=== PATIENT | male | born 1960 | race Caucasian/White ===

== ENCOUNTER 2016-12-30 08:07 | Emergency (ER) | payer MEDICAID ==
[~2016-12-30] VITALS: Ht 182.9 cm; Wt 74.8 kg
[2016-12-30 08:32] VITALS: BP 135/87
--- NOTE | 2016-12-30 08:35 | Emergency Room Report ---
History of Present Illness General Chief Complaint: Skin Rash/Abscess Source: Patient Present Illness HPI Patient presents with complaints of several areas of insect bites Also discomfort to the right elbow Patient reports having 3 rounds of shampoo for scabies Feels of the areas have become more scabbed and possibly healing Denies any fevers Patient has multiple areas of previous abscess Denies any neck pain or photophobia Dressing chest pain or shortness of breath Allergies: Uncoded Allergies: PENECILLIN (Allergy, Unknown, 12/30/16) Patient History Past Medical History: see triage record Pertinent Family History: none Reviewed Nursing Documentation: PMH: Agreed, PSxH: Agreed Nursing Documentation-PM Past Medical History: No History, Except For Review of Systems All Other Systems: negative except mentioned in HPI Physical Exam Vital Signs Date Time Temp Pulse Resp B/P Pulse Ox O2 Delivery O2 Flow Rate FiO2 12/30/16 08:15 97.9 84 18 134/76 99 Room Air Sp02 EP Interpretation: reviewed, normal General Appearance: well appearing - However mildly disheveled, no apparent distress Head: normocephalic, atraumatic Eyes: bilateral eye EOMI, bilateral eye PERRL ENT: hearing grossly normal, normal pharynx, TMs + canals normal, uvula midline Neck: full range of motion, supple, no meningismus, no bony tend Respiratory: lungs clear, normal breath sounds, no rhonchi, no respiratory distress, no retraction, no accessory muscle use Cardiovascular #1: normal peripheral pulses, regular rate, rhythm, no edema, no gallop, no JVD, no murmur Gastrointestinal: normal bowel sounds, non tender, soft, no mass, no organomegaly, non-distended, no guarding, no hernia, no pulsatile mass, no rebound Genitourinary: no CVA tenderness Musculoskeletal: normal inspection Neurologic: oriented x3, responsive, animal killer III-XII nml as tested, motor strength/ tone normal, sensory intact Psychiatric: mood/affect normal Skin: other - Multiple areas of scab formation, secondary healing, there is also evidence of abrasion to the right elbow, mild increased erythema is noted, patient is able to freely move the elbow without any joint restriction, no signs of any flaring or streaking of erythema Lymphatic: normal inspection, no adenopathy Medical Decision Making Diagnostic Impression: Primary Impression: Rash and other nonspecific skin eruption Additional Impression: Cellulitis ER Course Patient appears to have multiple areas of likely insect bites Dermatitis with differential of possible scabies Area on the right elbow does also appear to have a secondary cellulitis No signs of any abscess or joint involvement at this time Patient was given an IM injection of antibiotics And requires close outpatient followup Last Vital Signs Date Time Temp Pulse Resp B/P Pulse Ox O2 Delivery O2 Flow Rate FiO2 12/30/16 08:15 97.9 84 18 134/76 99 Room Air Status: improved Disposition: HOME, SELF-CARE Condition: Improved Scripts Clindamycin Hcl (CLINDAMYCIN HCL) 300 Mg Capsule 300 MG ORAL THREE TIMES A DAY, #21 CAP Prov: ANÍBAL LOO D.O. 12/30/16 Additional Instructions: Patient is provided with the discharge instructions notified to follow up with primary doctor in the next 2-3 days otherwise return to the er with any worsening symptoms. Please note that this report is being documented using [employer] technology. This can lead to erroneous entry secondary to incorrect interpretation by the dictating instrument. ANÍBAL LOO D.O. Dec 30, 2016 08:35
[2016-12-30] MEDS ORDERED: Clindamycin 300mg/ml vial inj IM ONE (08:45)
[2016-12-30] MEDS ORDERED: CLINDAMYCIN HC300 MG ORAL (08:50)
[2016-12-30 09:10] VITALS: BP 131/79
[2016-12-30 09:12] VITALS: BP 131/79
== END 2016-12-30 09:15 | disposition home or self-care (01) ==
LOC: EMR 08:33
DX: R21 Rash and other nonspecific skin eruption (principal); L03.90 Cellulitis, unspecified; S50.311A Abrasion of right elbow, initial encounter; X58.XXXA Exposure to other specified factors, initial encounter; Y92.9 Unspecified place or not applicable; Z88.0 Allergy status to penicillin; B86 Scabies
CPT/HCPCS: 96372; 99283; S0077

== ENCOUNTER 2019-06-30 18:53 | Emergency (ER) | payer MEDICAID ==
[~2019-06-30] VITALS: Ht 180.3 cm; Wt 74.8 kg
[~2019-06-30 18:53] MED LIST: CLINDAMYCIN HC300 MG ORAL
--- NOTE | 2019-06-30 19:20 | NUR ---
ED Nurse Note: Recieved pt from [facility] with c/o " i lupis my heart medicines", pt is awake, alert and oriented x 4, pt statesd he has chest pain and only needs his meds, pt is placed in gown and on cardiac monitoring, pt is refusing labs stating he does not like needles, sat and attempted to explain importance of needing labs, pt wont allow, informed, ekg done, pt with increased anxiety behavior, b/p is high, will continue to closely monitor.
--- NOTE | 2019-06-30 19:35 | NUR ---
ED Nurse Note:ELOPEMENT: sat and talked with pt, pt eloped from facility stating he does not want labs he only wants prescription for heart, pt can not recall what meds,staff attempted to ask pt only for labs, pt continued to refuse, became angry stating its against the law, pt also explained that his PMD will not refill meds because pt wont come in for exam, pt angrily left department ambulating, NAD noted.
[2019-06-30 19:38] VITALS: BP 155/102
--- NOTE | 2019-06-30 19:41 | Emergency Room Report ---
History of Present Illness General Chief Complaint: Chest Pain Source: Patient, Medical Record Present Illness HPI Disclaimer: Please note that this report is being documented using [employer] technology. This can lead to erroneous entry secondary to incorrect interpretation by the dictating instrument. HPI: 58-year-old male with reported history of CHF and hypertension presents complaining of chest pain and shortness of breath. Patient states that he has not been able to receive his medication for hypertension or for CHF and a proximal he 1 month over dispute with his prior doctor. He is requesting refills of his medications but does not want further evaluation at this time. He states that he told EMS he was experiencing chest pains that he can come to the emergency department for medication refill. He is currently denying chest pain but does note exertional dyspnea over the past few weeks and difficulty walking more than 75 steps without feeling short of breath. He denies cough, fevers, vomiting or diarrhea. PMH: Hypertension, CHF PSH: Mandible reconstruction, craniotomy Allergies: Penicillin Social Hx: Occasional alcohol use. Refused to answer regarding drugs Allergies: Coded Allergies: PENICILLINS (Verified Allergy, Unknown, 06/30/19) Nursing Documentation-PMH Past Medical History: No History, Except For Hx Hypertension: Yes Review of Systems All Other Systems: negative except mentioned in HPI Physical Exam Vital Signs Date Time Temp Pulse Resp B/P (MAP) Pulse Ox O2 Delivery O2 Flow Rate FiO2 06/30/19 18:57 97.7 96 20 155/102 (119) 100 Room Air General: Awake and alert, no acute distress HEENT: NC/AT. EOMI. Cardiovascular: RRR. S1 and S2 normal. No murmur appreciated Resp: Normal work of breathing. No cough, no wheezing. There are trace crackles at the bases bilaterally. Abdomen: Abdomen is soft, nondistended. Nontender Skin: Intact. No abrasions, laceration or rash over the exposed skin MSK: Normal tone and bulk. Moving all extremities. No obvious deformity. Neuro: Awake and alert. Mentating appropriately. Medical Decision Making Diagnostic Impression: Primary Impression: Chest pain Additional Impression: SOBOE (shortness of breath on exertion) ER Course 58-year-old male with history of hypertension and CHF presents requesting refills of his medications. The patient did allow an EKG which shows sinus rhythm with left axis deviation deep S waves in V3 and V4. The patient refused chest x-ray and lab work. He is requesting medications as his PMD would no longer prescribe them to him over an altercation regarding his Social Security status. I explained to him that while he does have a diagnosis of CHF there may be other processes occurring such as pneumonia, bronchitis, unstable angina, ACS, pulmonary embolism or other medical conditions. I explained that some of these can be potentially life-threatening and that he would should be medically evaluated prior to my prescribing him any medication in order to avoid any complications. The patient became angry and stated that if I did not refill his prescriptions he would no longer stay in the emergency department. I again explained to them several times that the cause of his shortness of breath and intermittent chest pain is not necessarily due to his diagnosed CHF but could be multifactorial at which point he left the room and walked out of the emergency department and stated that he would go to another hospital. Last Vital Signs Date Time Temp Pulse Resp B/P (MAP) Pulse Ox O2 Delivery O2 Flow Rate FiO2 06/30/19 18:57 97.7 96 20 155/102 (119) 100 Room Air Disposition: Glenroy Shrestha MD Jun 30, 2019 19:41
[2019-07-01] MEDS ORDERED: NKM (00:46)
== END 2019-06-30 19:35 | disposition left against medical advice (07) ==
LOC: EMR 19:35
DX: R07.9 Chest pain, unspecified (principal); R06.02 Shortness of breath; I11.0 Hypertensive heart disease with heart failure; I50.9 Heart failure, unspecified; Z88.0 Allergy status to penicillin
CPT/HCPCS: 93005; 99282

== ENCOUNTER 2019-07-01 00:41 | Inpatient (IN) | payer MEDICAID ==
[2019-07-01] VITALS (7 sets, daily range): BP systolic 124–157; BP diastolic 93–106
[~2019-07-01] VITALS: Ht 180.3 cm; Wt 81.6 kg
[2019-07-01] MEDS ORDERED: NKM (00:46)
--- NOTE | 2019-07-01 01:00 | NUR ---
ED Nurse Note: Recieved pt BIBA from [facility] with c/o SOB, pt has noted labored breathing with accessory muscle use, pt was seen here this evening at about 7pm, pt eloped because he did not want labs and to be stuck, pt returned due to s/s worsening, pt has hx of chf and takes lasix, pt immediately gowned and assisted to cardiac monitoring, iv line placed and labs drawn, will resume care as ordered and continue to closely monitor, pt also with c/o chest pain at 10/10 with tightness, MD is aware.
[2019-07-01] MEDS ORDERED: Albuterol ud Inhalation HHN ONE (01:15)
[2019-07-01] MEDS ORDERED: Solu-MEDROL 125mg Inj IVP ONE (01:15)
[2019-07-01 01:30] LABS: BASOPHILS % (AUTO) 0.5 % (0.0-2.0); EOSINOPHILS % (AUTO) 1.6 % (0.0-3.0); HEMATOCRIT 38.8 % (42.0-52.0); HEMOGLOBIN 12.7 G/DL (14.2-18.0); MEAN CORPUSCULAR VOLUME 89 FL (80-99); MONOCYTES % (AUTO) 6.3 % (1.0-10.0); NEUTROPHILS % (AUTO) 72.5 % (45.0-75.0); PLATELET COUNT 350 K/UL (150-450); RED BLOOD COUNT 4.37 M/UL (4.70-6.10); RED CELL DISTRIBUTION WIDTH 11.4 % (11.6-14.8); WHITE BLOOD COUNT 8.5 K/UL (4.8-10.8)
[2019-07-01 01:41] LABS: ANION GAP 5 mmol/L (5-15); BLOOD UREA NITROGEN 29 mg/dL (7-18); CALCIUM 8.8 MG/DL (8.5-10.1); CARBON DIOXIDE 26 MMOL/L (21-32); CHLORIDE 105 MMOL/L (98-107); CREATININE 1.3 MG/DL (0.55-1.30); POTASSIUM 3.9 MMOL/L (3.5-5.1); SODIUM 136 MMOL/L (136-145)
--- NOTE | 2019-07-01 01:52 | Emergency Room Report ---
History of Present Illness General Chief Complaint: Abdominal Pain Source: Patient Present Illness HPI Patient presents with complaints of shortness of breath midsternal chest pain Patient was here previously and left AGAINST MEDICAL ADVICE And prior to being seen Patient reports that he was at another facility and was taking too long to be seen presents back to our facility Denies any vomiting or diarrhea patient reports that he has been off his medications which include lasix For over the past 1 month Breathing is worse with ambulation denies any fevers or chills Allergies: Coded Allergies: PENICILLINS (Verified Allergy, Unknown, 06/30/19) Patient History Past Medical History: see triage record Pertinent Family History: none Reviewed Nursing Documentation: PMH: Agreed; PSxH: Agreed Nursing Documentation-PMH Past Medical History: No History, Except For Hx Hypertension: Yes Review of Systems All Other Systems: negative except mentioned in HPI Physical Exam Vital Signs Date Time Temp Pulse Resp B/P (MAP) Pulse Ox O2 Delivery O2 Flow Rate FiO2 07/01/19 00:42 97.9 100 18 170/110 (130) 99 07/01/19 01:25 Room Air 21 Sp02 EP Interpretation: reviewed, normal General Appearance: mild distress - Appears short of breath Head: normocephalic, atraumatic Eyes: bilateral eye PERRL, bilateral eye EOMI ENT: hearing grossly normal, normal pharynx, TMs + canals normal, uvula midline Neck: full range of motion, supple, no meningismus, no bony tend Respiratory: no retraction, no accessory muscle use, crackles - Laterally, tachypneic Cardiovascular #1: normal peripheral pulses, regular rate, rhythm, no edema, no gallop, no JVD, no murmur Gastrointestinal: normal bowel sounds, non tender, soft, no mass, no organomegaly, non-distended, no guarding, no hernia, no pulsatile mass, no rebound Genitourinary: no CVA tenderness Musculoskeletal: normal inspection Neurologic: oriented x3, responsive, venetian blind worker III-XII nml as tested, motor strength/ tone normal, sensory intact Psychiatric: mood/affect normal Skin: no rash Lymphatic: normal inspection, no adenopathy Procedures Critical Care Time Critical Care Time 40 minutes for multiple re-evaluations critical presentation with respiratory distress, not including any procedural time Medical Decision Making Diagnostic Impression: Primary Impression: Dyspnea ER Course Patient is a fairly complex patient with multiple differential to consideration including but not limited to cardiac cardiopulmonary and vascular emergencies His x-rays show some congestion BNP is also elevated patient provided with diuretics At this time also showing amphetamine positive Patient's initial presentation also showed mixed picture of possible COPD and patient admitted for further care Labs Test 07/01/19 01:05 07/01/19 02:00 White Blood Count 8.5 K/UL (4.8-10.8) Red Blood Count 4.37 M/UL (4.70-6.10) Hemoglobin 12.7 G/DL (14.2-18.0) Hematocrit 38.8 % (42.0-52.0) Mean Corpuscular Volume 89 FL (80-99) Mean Corpuscular Hemoglobin 29.2 PG (27.0-31.0) Mean Corpuscular Hemoglobin Concent 32.8 G/DL (32.0-36.0) Red Cell Distribution Width 11.4 % (11.6-14.8) Platelet Count 350 K/UL (150-450) Mean Platelet Volume 4.9 FL (6.5-10.1) Neutrophils (%) (Auto) 72.5 % (45.0-75.0) Lymphocytes (%) (Auto) 19.0 % (20.0-45.0) Monocytes (%) (Auto) 6.3 % (1.0-10.0) Eosinophils (%) (Auto) 1.6 % (0.0-3.0) Basophils (%) (Auto) 0.5 % (0.0-2.0) Prothrombin Time 11.0 SEC (9.30-11.50) Prothromb Time International Ratio 1.0 (0.9-1.1) Activated Partial Thromboplast Time 27 SEC (23-33) Sodium Level 136 MMOL/L (136-145) Potassium Level 3.9 MMOL/L (3.5-5.1) Chloride Level 105 MMOL/L (98-107) Carbon Dioxide Level 26 MMOL/L (21-32) Anion Gap 5 mmol/L (5-15) Blood Urea Nitrogen 29 mg/dL (7-18) Creatinine 1.3 MG/DL (0.55-1.30) Estimat Glomerular Filtration Rate 56.7 mL/min (>60) Glucose Level 126 MG/DL (74-106) Calcium Level 8.8 MG/DL (8.5-10.1) Total Bilirubin 0.5 MG/DL (0.2-1.0) Aspartate Amino Transf (AST/SGOT) 45 U/L (15-37) Alanine Aminotransferase (ALT/SGPT) 61 U/L (12-78) Alkaline Phosphatase 105 U/L (46-116) Total Creatine Kinase 185 U/L (26-308) Creatine Kinase MB 5.5 NG/ML (0.0-3.6) Creatine Kinase MB Relative Index 2.9 Troponin I 0.000 ng/mL (0.000-0.056) Pro-B-Type Natriuretic Peptide 6855 pg/mL (0-125) Total Protein 6.4 G/DL (6.4-8.2) Albumin 3.1 G/DL (3.4-5.0) Globulin 3.3 g/dL Albumin/Globulin Ratio 0.9 (1.0-2.7) Urine Opiates Screen Negative (NEGATIVE) Urine Barbiturates Screen Negative (NEGATIVE) Phencyclidine (PCP) Screen Negative (NEGATIVE) Urine Amphetamines Screen Positive (NEGATIVE) Urine Benzodiazepines Screen Negative (NEGATIVE) Urine Cocaine Screen Negative (NEGATIVE) Urine Marijuana (THC) Screen Positive (NEGATIVE) EKG Diagnostic Results Rate: normal Rhythm: NSR ST Segments: other - Nonspecific ST T wave changes Rhythm Strip Diag. Results EP Interpretation: yes Rate: 80 Rhythm: NSR, no PVC's, no ectopy Chest X-Ray Diagnostic Results Chest X-Ray Diagnostic Results : Chest X-Ray Ordered: Yes # of Views/Limited/Complete: 1 View Indication: Chest Pain EP Interpretation: Yes Interpretation: no consolidation, no effusion, other - Congestion bilateral markings Impression: Other - CHF Electronically Signed by: Anh Betancourt DO Last Vital Signs Date Time Temp Pulse Resp B/P (MAP) Pulse Ox O2 Delivery O2 Flow Rate FiO2 07/01/19 01:37 105 26 100 Room Air 21 07/01/19 00:42 97.9 170/110 (130) Status: improved Disposition: ADMITTED INPATIENT Condition: Serious Referrals: NOT CHOSEN IPA/,REFERRING (PCP) Anh Betancourt DO Jul 01, 2019 01:52
[2019-07-01 01:54] LABS: ALANINE AMINOTRANSFERASE 61 U/L (12-78); ALBUMIN 3.1 G/DL (3.4-5.0); ALBUMIN/GLOBULIN RATIO 0.9 (1.0-2.7); ALKALINE PHOSPHATASE 105 U/L (46-116); ASPARTATE AMINO TRANSFERASE 45 U/L (15-37); BILIRUBIN,TOTAL 0.5 MG/DL (0.2-1.0); CKMB 5.5 NG/ML (0.0-3.6); CREATINE KINASE 185 U/L (26-308)
--- NOTE | 2019-07-01 02:00 | NUR ---
ED Nurse Note: urine collected; sent down to lab.
--- NOTE | 2019-07-01 03:00 | NUR ---
ED Nurse Note: Pt in bed and becoming more and more restless and agitated, does follow commands but has to stand and ambulate in room and can not be still, md is aware, pt asking for pain meds, given tylenol, remains on monitoring and requires very frequent monitoring due to constant moving and tangling in cords, pt b/p also remains slightly elevated, lasix given effective pt urinating very large amounts often, will continue to closely montior while waiting for room for admission.
[2019-07-01] MEDS ORDERED: Nitroglycerin Subl 0.4mg tab SL PRN (04:00)
[2019-07-01] MEDS ORDERED: Albuterol/Ipratropium 3ml neb HHN PRN (04:00)
[2019-07-01] MEDS ORDERED: LORazepam Inj 2mg/ml 1ml IV ONE (04:15)
--- NOTE | 2019-07-01 04:15 | NUR ---
ED Nurse Note: Pt to be admitted, no floor beds available, pt will stay in er for the night, belongings list completed, pt continues to c/o chest pain, md aware, pt also remains and getting more agitated and restless, pt using urinal frequently and medicated with lasix again, will continue to closely monitor and resume care as ordered and folow admission protocol.
--- NOTE | 2019-07-01 04:20 | NUR ---
ED Nurse Note: Pt placed on hospital bed for admission and comfort, all admit orders completed also, will continue to monitor and admit in am when bed is available, pt also medicated with ativan for anxiety, remains on cardiac monitoring, in NSR, iv lasix given very effective, pt with about 3l outpus so far, will continue to closely monitor.
[2019-07-01] MEDS: Carvedilol 6.25mg Tab ORAL SCH ×2 (04:36→08:46)
--- NOTE | 2019-07-01 05:00 | NUR ---
ED Nurse Note: RECEIVED PATIENT FROM JEROME EDWARDS. PATIENT SLEEPING COMFORTABLY IN HOSPITAL BED WITH NAD. RESPIRATION EVEN AND UNLABORED. IV INTACT AND PATENT. VSS.
--- NOTE | 2019-07-01 05:00 | NUR ---
ED Nurse Note: Pt remains on hospital bed and room changed to bed 4, report given to JEROME Bowen to resume care, pt is in bed sleeping, no sob or labored breathing and arouses easily, nad or changes noted, iv site intact and patent, pt b/p has decreased to nromal limits and continues to have urine output after lasix. Yousuf to resume care.
--- NOTE | 2019-07-01 05:53 | NUR ---
ED Nurse Note: ASSISTED PATIENT WITH URINAL. PROVIDED PATIENT WITH EXTRA BLANKET. BED AT LOWEST POSITION. BED ALARM ON; SIDE RAILS RAISED X2. CALL LIGHT WITHIN REACH. PT AWARE OF PENDING ADMISSION.
--- NOTE | 2019-07-01 06:45 | NUR ---
TRANSFER TO FLOOR: Patient transferred to SDU as ordered, per NAJERA MD. Report given to JEROME MACDONALD. Belongings and medications given to SECURITY. PT RESTING COMFORTABLY WITH NO SIGNS OF DISTRESS.
--- NOTE | 2019-07-01 07:58 | NUR ---
NURSE NOTES: received pt from Yousuf CANO. patient is a new admit under dr caldwell. pt is on the bed asleep, ativan mg given from ER. no respiratory distress noted. belongings list checked by [facility] nurse. pt call light within reach. will follow plan of care.
[2019-07-01] MEDS ORDERED: Aspirin Baby 81mg ORAL SCH (09:00)
--- NOTE | 2019-07-01 09:14 | History and Physical Report ---
DATE OF ADMISSION: 07/01/2019 REASON FOR ADMISSION: 1. Polysubstance abuse. 2. Shortness of breath. HISTORY OF PRESENT ILLNESS: The patient is a 58-year-old gentleman, who had left the emergency room against medical advice after developing some shortness of breath and chest pain. He went to another facility and then returned because he felt the other facility was still taking too long. He was admitted overnight for further evaluation and care of shortness of breath. No nausea, vomiting, or diarrhea. Denies any current chest pain. First troponin was 0. PAST MEDICAL HISTORY: 1. Polysubstance abuse. 2. Hypertension. FAMILY HISTORY: Positive for hypertension. ALLERGIES: Penicillin. PAST SURGICAL HISTORY: Noncontributory. REVIEW OF SYSTEMS: NEUROLOGIC: The patient denies headache, change in vision, syncope, or presyncopal episodes. CARDIOVASCULAR: No current chest pain, palpitations, or angina. PULMONARY: Mild shortness of breath. Nonproductive cough. GASTROINTESTINAL/GENITOURINARY: No change in bowel habits. No nausea, vomiting, or diarrhea. ENDOCRINOLOGY: No night sweats, fevers, or chills. MUSCULOSKELETAL: The patient is feeling weak, tired, and fatigued. PHYSICAL EXAMINATION: VITAL SIGNS: Blood pressure 149/99, respiratory rate 18, pulse 103, temperature 98.5, and 98% oxygen saturation on 2 L nasal cannula. GENERAL: The patient awake, somnolent, but arousable. HEENT: Extraocular muscles intact. No lymphadenopathy noted. Oropharyngeal mucosa is clear and dry. CARDIOVASCULAR: S1, S2. No rubs or gallops. PULMONARY: Mild upper rhonchi. However, positive rales. ABDOMEN: Nondistended and nontender. EXTREMITIES: No edema noted. ASSESSMENT AND PLAN: 1. Shortness of breath could be secondary to flash pulmonary edema from amphetamine use. We will continue Lasix therapy. Creatinine 1.3 and stable. We will transfer the patient to telemetry. 2. Hypertension. We will continue Coreg. 3. Polysubstance abuse. The patient was positive for amphetamines and marijuana. 4. DVT prophylaxis with SCDs. Gamaliel Otto MD DR: MARJAN/MEENAKSHI Asencio: 07/01/2019 08:13 JOB#: [id number] CC:
--- NOTE | 2019-07-01 09:29 | NUR ---
*-* NO INSURANCE INFORMATION IN THE BAR UNABLE TO SEND CLINICALS OR REVIEWS *-*
--- NOTE | 2019-07-01 09:40 | NUR ---
NURSE NOTES: DR. hester made aware pt wants to sign AMA. Dr. hester acknowledge the report and he said "okay"
--- NOTE | 2019-07-01 09:49 | NUR ---
NURSE NOTES: patient insisted on signing AMA. risk of signing it were explained but still th epatient wants to signs in. dr caldwell made aware and acknowledged the report, stated "Ok". in process inspector removed, IV line removed as well. belongings list were checked, all accounted for including the guitar and celfone. patient is not in acute distress and patient is AOX4.
--- NOTE | 2019-07-01 10:20 | NUR ---
NURSE NOTES: PATIENT FACILITY AT [address] NAJERA AWARE.
--- NOTE | 2019-07-01 10:21 | NUR ---
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 IS: Lasix 40mg IV Proventil 5mg HHN Solu-medrol 125mg IVP Admitted to SDU [facility] status DCP: Pending Hospital Stay
--- NOTE | 2019-07-01 12:28 | Diagnostic Imaging Report ---
Indication: Reason For Exam: CP Technique: Single AP view of the chest. Comparison: None. Findings: The heart is enlarged when accounting for projection and technique. There is interstitial edema. There are patchy perihilar airspace opacities. No pneumothorax. No pleural fluid. No acute osseous abnormality. Possible old right mid rib fractures. IMPRESSION: Interstitial edema; patchy perihilar airspace opacities may represent combination of edema and atelectasis, but superimposed pneumonia should be excluded clinically.
--- NOTE | 2019-07-02 08:56 | Discharge Summary ---
Discharge Summary Discharge Summary _ DATE OF ADMISSION: 07/01/2019 DATE OF DISCHARGE: 07/01/2019 Patient left AGAINST MEDICAL ADVICE REASON FOR ADMISSION: 58 years old male with past medical history of hypertension, polysubstance abuse , initially presented to emergency department with shortness of breath and chest pain . He left AGAINST MEDICAL ADVICE and went to another facility , but subsequently returned back. No further chest pain. Troponin negative. EKG revealed sinus rhythm with nonspecific ST-T wave changes. Pro BNP 6855. Chest x-ray revealed interstitial edema with patchy perihilar perihilar airspace opacity , possibly representing combination of edema and atelectasis , but superimposed pneumonia should be excluded clinically. Laboratory work-up revealed no leukocytosis , stable hemoglobin and hematocrit. Stable electrolytes . BUN 29, creatinine 1.3. Urine toxicology screen was positive for amphetamine and marijuana. Patient subsequently admitted for further evaluation of shortness of breath . HOSPITAL COURSE: Patient admitted to telemetry floor; second troponin was negative. Supplemental oxygen titrated as needed to keep pulse oximetry above 92%. Bronchodilator therapy via handheld nebulizer provided as needed. Patient started on diuresis with IV Lasix with close monitoring of volumes and cardiorenal parameters. Antiplatelet therapy with aspirin and beta-jenny initiated. Patient had shortness of breath , probably secondary to flash pulmonary edema from amphetamine use. Blood pressure was managed with the beta-jenny. DVT prophylaxis with SCD and GI prophylaxis provided. Patient was counseled on abstinence from illicit street drugs. Patient decided to leave AGAINST MEDICAL ADVICE . The risks and consequences of signing AGAINST MEDICAL ADVICE were discussed with patient in detail. Patient verbalized understanding, nevertheless signed AMA form and left. FINAL DIAGNOSES: Shortness of breath likely secondary to flash pulmonary edema due to amphetamine use Hypertension Polysubstance abuse I have been assigned to dictate discharge summary for this account. I was not involved in the patient's management. Maggi Farmer NP Jul 02, 2019 08:56
--- NOTE | 2019-07-02 11:17 | NUR ---
*-* INSURANCE *-* ALL CLINICALS AND REVIEWS HAVE BEEN FAXED TO: [facility] REF# [id number] F: [phone]
--- NOTE | 2019-07-03 14:16 | NUR ---
*-* INSURANCE *-* DISCHARGE SUMMARUY HAVE BEEN FAXED TO: [facility] REF# [id number] F: [phone]
== END 2019-07-01 10:20 | disposition left against medical advice (07) | DRG 770 ==
LOC: EDBD 00:41 → EDUNIT# 00:41 → EMR 00:58 → 2W 01:40 → EDBEDREQ 05:07
DX: F15.10 Other stimulant abuse, uncomplicated (principal); J81.0 Acute pulmonary edema; I10 Essential (primary) hypertension; R06.02 Shortness of breath
CPT/HCPCS: 36415; 71045; 80053; 80307; 82550; 82553; 83880; 84484; 85025; 85610; 85730; 93005; 94640; 94664; 96374; 96375; 96376; 99291

== ENCOUNTER 2019-07-04 23:21 | Emergency (ER) | payer MEDICAID ==
[~2019-07-04] VITALS: Ht 180.3 cm; Wt 72.6 kg
[~2019-07-04 23:21] MED LIST changes: +NKM
--- NOTE | 2019-07-04 23:34 | NUR ---
ED Nurse Note: Pt ambulated to ED from off the streets, pt reports sob and dyspnea upon exertion x3days. Pt is A&Ox4, VSS. Pt has a hx of chf
[2019-07-04 23:38] VITALS: BP 147/110
--- NOTE | 2019-07-04 23:51 | Emergency Room Report ---
History of Present Illness General Chief Complaint: Dyspnea/Respdistress Source: Patient, Medical Record Present Illness HPI This is a 58-year-old male with a history of hypertension and CHF. He said that he has not had his medicine for couple days. He was here couple days ago and was admitted for CHF. Patient complained of shortness of breath. Worse with exertion. Worse with lying flat. He said he has insurance but does not have his card so he can fill his prescription. Denies any fever chills but denies any nausea or vomiting. Has a history of drug abuse. Allergies: Coded Allergies: PENICILLINS (Verified Allergy, Unknown, 06/30/19) Patient History Past Medical History: see triage record, old chart reviewed, HTN, CHF Past Surgical History: other Pertinent Family History: none Social History: Denies: smoking Immunizations: other Reviewed Nursing Documentation: PMH: Agreed; PSxH: Agreed Nursing Documentation-PMH Hx Cardiac Problems: Yes - CHF Hx Hypertension: Yes Review of Systems Eye: Denies: eye pain, blurred vision ENT: Denies: ear pain, nose congestion, throat swelling Respiratory: Reports: shortness of breath; Denies: cough Cardiovascular: Denies: chest pain, palpitations Gastrointestinal: Denies: abdominal pain, diarrhea, nausea, vomiting Musculoskeletal: Denies: back pain, joint pain Skin: Denies: rash Neurological: Denies: headache, numbness Endocrine: Denies: increased thirst, increased urine Hematologic/Lymphatic: Denies: easy bruising All Other Systems: negative except mentioned in HPI Physical Exam Vital Signs Date Time Temp Pulse Resp B/P (MAP) Pulse Ox O2 Delivery O2 Flow Rate FiO2 07/04/19 23:22 97.9 90 16 147/110 (122) 98 Room Air Vitals with high blood pressure Sp02 EP Interpretation: reviewed, normal General Appearance: well appearing, no apparent distress, alert Head: normocephalic, atraumatic Eyes: bilateral eye PERRL, bilateral eye EOMI ENT: hearing grossly normal, normal pharynx Neck: full range of motion, supple, no meningismus Respiratory: chest non-tender, normal breath sounds, rales - Slight rales at bases Cardiovascular #1: regular rate, rhythm, no murmur Gastrointestinal: normal bowel sounds, non tender, no mass, no organomegaly, no bruit, non-distended Musculoskeletal: back normal, gait/station normal, normal range of motion Psychiatric: mood/affect normal Medical Decision Making Diagnostic Impression: Primary Impression: Acute exacerbation of CHF (congestive heart failure) Qualified Codes: I50.9 - Heart failure, unspecified Additional Impression: Drug abuse ER Course Patient presents with CHF exacerbation secondary to noncompliance with his Lasix. Troponin negative. He has no chest pain. He diuresed almost 2 L. [place] better. Will discharge home. EKG Diagnostic Results Rate: normal Rhythm: NSR ST Segments: other - LBBB; TWI Chest X-Ray Diagnostic Results Chest X-Ray Diagnostic Results : Chest X-Ray Ordered: Yes # of Views/Limited/Complete: 1 View Indication: Shortness of Breath EP Interpretation: Yes Interpretation: no consolidation, no effusion, no pneumothorax, other - cardiomegaly with mild vascular congestion Impression: Other - chf Electronically Signed by: Chase Bustamante MD Last Vital Signs Date Time Temp Pulse Resp B/P (MAP) Pulse Ox O2 Delivery O2 Flow Rate FiO2 07/04/19 23:38 90 16 Room Air 07/04/19 23:38 97.9 147/110 98 Status: improved Disposition: HOME, SELF-CARE Condition: Stable Scripts Furosemide* (LASIX*) 40 Mg Tablet 40 MG ORAL DAILY, #90 TAB Prov: Chase Bustamante MD 07/05/19 Referrals: [facility],REFERRING (PCP) Additional Instructions: Stop using drugs. Follow-up with your doctor in 7 days. Return if symptoms worsen. Chase Bustamante MD Jul 04, 2019 23:51
--- NOTE | 2019-07-05 01:02 | Diagnostic Imaging Report ---
EXAM: XR Chest, 1 View CLINICAL HISTORY: SOB TECHNIQUE: Frontal view of the chest. COMPARISON: none FINDINGS: Lungs: Mild interstitial pulmonary perivascular congestion.. Pleural space: Unremarkable. No pneumothorax. Heart: Moderate cardiomegaly. Mediastinum: Unremarkable. Bones/joints: Unremarkable. IMPRESSION: Cardiomegaly with findings of mild or early interstitial pattern edema.
[2019-07-05] MEDS ORDERED: FUROSEMIDE40 MG ORAL (01:27)
[2019-07-05 01:40] VITALS: BP 147/110
--- NOTE | 2019-07-05 01:40 | NUR ---
ER DISCHARGE NOTE: Patient is cleared to be discharged per ERMD, pt is aox4, on room air, with stable vital signs. pt was given dc and prescription instructions, pt was able to verbalize understanding, pt id band and iv site removed without complications. pt is able to ambulate with steady gait. pt took all belongings.
--- NOTE | 2019-07-08 11:16 | Cardiology Report ---
APPROVED REPORT EKG Measurement Heart [id number] Normal sinus rhythm Possible Left atrial enlargement Left bundle branch block Abnormal ECG lateral t inversion likley related to IVCD , ischemia cannot be excluded
== END 2019-07-05 01:40 | disposition home or self-care (01) ==
LOC: EMR 23:41
DX: I50.9 Heart failure, unspecified (principal); I11.0 Hypertensive heart disease with heart failure; Z88.0 Allergy status to penicillin; F19.10 Other psychoactive substance abuse, uncomplicated
CPT/HCPCS: 71045; 84484; 93005; 96374; 99284; J1940

== ENCOUNTER 2019-07-12 12:49 | Emergency (ER) | payer MEDICAID ==
[~2019-07-12] VITALS: Ht 180.3 cm; Wt 70.3 kg
[~2019-07-12 12:49] MED LIST changes: +FUROSEMIDE40 MG ORAL
[2019-07-12 13:00] VITALS: BP 147/101
--- NOTE | 2019-07-12 13:02 | NUR ---
ED Nurse Note: pt walked in to ED due to epigastric pain for over 2 months. per pt, he has it for over 2 yrs but recently run out of meds. pt also c/o sob when he walked long distance due to his heart conditions. has chf and run out of lasix. no n/v/d. ambulatory with steady gait. skin warm to touch. no open wound noted. respirations even and non-labored noted. 94% in RA. able to speak full sentence without difficulty. pt requested tamiko, will provide after seen by will wait for the further order.
--- NOTE | 2019-07-12 13:28 | Emergency Room Report ---
History of Present Illness General Chief Complaint: General Complaint Source: Medical Record (Leatha Patel) Present Illness HPI 58 YO male presents to the ED c/o running out of his medication 3 days ago. Pt. reports he takes lasix daily for CHF and HTN management. He also reports persistent 3/10 in severity epigastric pain. Denies abdominal tenderness. Denies N/V/F/C. Denies blood in the stool or black tarry stools. Pt. reports he is homeless and having issues with his [employer]( insurance) and is unable to fill rx's that have previously been written for him. Pt. reports cough, denies SOB, LE edema, or orthopnea. Pt. denies CP, palpitations, or dizziness. Denies sudden onset of a CERVANTES. Pt. was seen here 3 days ago and had full CHF work up and dc'd with rx for lasix. (Leatha Patel) Allergies: Coded Allergies: PENICILLINS (Verified Allergy, Unknown, 06/30/19) Patient History Past Medical History: see triage record, HTN, CHF Past Surgical History: none Pertinent Family History: none Social History: Reports: alcohol use, drug use Immunizations: UTD Reviewed Nursing Documentation: PMH: Agreed; PSxH: Agreed (Leatha Patel) Nursing Documentation-PMH Past Medical History: No History, Except For Hx Cardiac Problems: Yes - CHF Hx Hypertension: Yes (Leatha Patel) Review of Systems All Other Systems: negative except mentioned in HPI (Leatha Patel) Physical Exam Vital Signs Date Time Temp Pulse Resp B/P (MAP) Pulse Ox O2 Delivery O2 Flow Rate FiO2 07/12/19 12:53 98.1 100 18 147/101 (116) 95 Room Air Sp02 EP Interpretation: reviewed, normal General Appearance: no apparent distress, alert, GCS 15, non-toxic, thin Head: normocephalic, atraumatic Eyes: bilateral eye normal inspection, bilateral eye PERRL ENT: hearing grossly normal, normal voice Neck: full range of motion Respiratory: chest non-tender, lungs clear, normal breath sounds, no rhonchi, no respiratory distress, no accessory muscle use, no wheezing, speaking full sentences Cardiovascular #1: regular rate, rhythm, no edema, no JVD, normal capillary refill Gastrointestinal: normal bowel sounds, soft, no peritonitis, non-distended, no guarding, no pulsatile mass, tenderness - mild epigastric tenderness, negative buck's, no lower quadrant tenderness. Genitourinary: normal inspection Musculoskeletal: back normal, gait/station normal, normal range of motion, non- tender Neurologic: alert, oriented x3, responsive, motor strength/tone normal, sensory intact, speech normal, grossly normal Psychiatric: judgement/insight normal Lymphatic: no adenopathy (Leatah Patel) Medical Decision Making PA Attestation Dr. Betancourt is my supervising Physician whom patient management has been discussed with. Homeless Attestation I, The treating provider, Leatha BANKS, have assessed this patient and agree that this patient is medically stable for discharge to an outpatient disposition. (Leatha Patel) PA Attestation Please note that I have also seen and evaluated the patient, I do agree with the exam and findings and work-up. Patient continues to remain clinically stable respirations are appropriate hemodynamically stable,. And patient is encouraged to have improved outpatient follow-up (Anh Betancourt DO) Diagnostic Impression: Primary Impression: Medication refill Additional Impression: History of congestive heart failure ER Course 58 YO male presents to the ED c/o running out of his medication 3 days ago. Pt. reports he takes lasix daily for CHF and HTN management. He also reports persistent 3/10 in severity epigastric pain. Denies abdominal tenderness. Denies N/V/F/C. Denies blood in the stool or black tarry stools. Pt. reports he is homeless and having issues with his [employer]( insurance) and is unable to fill rx's that have previously been written for him. Pt. reports cough, denies SOB, LE edema, or orthopnea. Pt. denies CP, palpitations, or dizziness. Denies sudden onset of a CERVNATES. Pt. was seen here 3 days ago and had full CHF work up and dc'd with rx for lasix. Ddx considered but are not limited to: drug seeking,OD,CHF, COPD, PNA, NV, dissection, acute abdomen, PUD/gastritis, GERD just to name a few. Vital signs: are WNL, pt. is afebrile H&PE are most consistent with need for medication refill. ORDERS: none required at this time, the diagnosis is clinical ED INTERVENTIONS: -Pepcid 20mg PO -Mylanta PO -Viscous Lidocaine PO Pt. reports his epigastric pain has resolved upon reassessment post- intervention. -I do not identify an emergent condition at this time. With current presentation , pt. is stable for close outpatient follow up and conservative treatment. D/ w pt. to return promptly to ED with worsening or new symptoms.- Pt. verbalizes' understanding and agreement with proposed treatment plan. DISCHARGE: At this time pt. is stable for d/c to home. Will perform homeless dc. Will provide printed patient care instructions, and any necessary prescriptions. Care plan and follow up instructions have been discussed with the patient prior to discharge. (Leatha Patel) Last Vital Signs Date Time Temp Pulse Resp B/P (MAP) Pulse Ox O2 Delivery O2 Flow Rate FiO2 07/12/19 13:00 98.1 100 18 147/101 95 Room Air (Leatha Patel) Disposition: HOME, SELF-CARE Condition: Stable Scripts Furosemide* (LASIX*) 40 Mg Tablet 40 MG ORAL DAILY, #30 TAB Prov: Leatha Patel 07/12/19 Referrals: NON PHYSICIAN (PCP) Patient Instructions: Furosemide tablets Leatha Patel Jul 12, 2019 13:28 Anh Betancourt DO Jul 12, 2019 13:29
[2019-07-12] MEDS ORDERED: Lidocaine 2% Visc 15ml soln ORAL ONE (13:30)
[2019-07-12] MEDS ORDERED: Furosemide 40mg tab ORAL ONE (13:30)
[2019-07-12] MEDS ORDERED: Mylanta II UD 30ml ORAL ONE (13:30)
[2019-07-12] MEDS ORDERED: FUROSEMIDE40 MG ORAL (14:09)
[2019-07-12 14:16] VITALS: BP 140/94
--- NOTE | 2019-07-12 14:18 | NUR ---
ER DISCHARGE NOTE: Patient is cleared to be discharged per ERMD, pt is aox4, on room air, with stable vital signs. pt was given dc and prescription instructions, pt was able to verbalize understanding, pt id band removed. pt is able to ambulate with steady gait. pt took all belongings.
[2019-07-13] MEDS ORDERED: FUROSEMIDE40 MG ORAL (09:16)
== END 2019-07-12 14:19 | disposition home or self-care (01) ==
LOC: EMR 13:10
DX: I50.9 Heart failure, unspecified (principal); I11.0 Hypertensive heart disease with heart failure; Z76.0 Encounter for issue of repeat prescription; Z88.0 Allergy status to penicillin; R10.13 Epigastric pain
CPT/HCPCS: 99282

== ENCOUNTER 2019-07-13 07:59 | Emergency (ER) | payer MEDICAID ==
[~2019-07-13] VITALS: Ht 180.3 cm; Wt 72.6 kg
[2019-07-13 08:24] VITALS: BP 133/94
--- NOTE | 2019-07-13 08:27 | NUR ---
ED Nurse Note: Pt is homeless, came in complains of epigastric pain x 2 months, " vomited a couple of weeks ago". Pain 5/10 tina tightness. No active vomiting reported. Pt came in [facility] for the same reason yesterday and was prescribed Lasix anf Pepcid. Bowel sounds active on all quadrants. Last bowel movement was this morning. AOx4, VSS tina. Will cont to monitor.
--- NOTE | 2019-07-13 08:30 | Emergency Room Report ---
History of Present Illness General Chief Complaint: Pain Source: Patient, Medical Record Present Illness HPI 58-year-old male history of hypertension, amphetamine abuse, heart failure presents with shortness of breath, x1 day patient states he thinks his lungs are filling up with fluid, he denies any aggravating or alleviating factors severity is mild, no dyspnea on exertion, he does endorse some discomfort epigastrically but otherwise no cardiac chest pain per patient, no nausea no vomiting, no diarrhea, patient is requesting a sandwich Allergies: Coded Allergies: PENICILLINS (Verified Allergy, Unknown, 06/30/19) Patient History Past Medical History: see triage record Social History: Reports: drug use - marijuana Reviewed Nursing Documentation: PMH: Agreed; PSxH: Agreed Nursing Documentation-PMH Hx Cardiac Problems: Yes - CHF Hx Hypertension: Yes Review of Systems All Other Systems: negative except mentioned in HPI Physical Exam Vital Signs Date Time Temp Pulse Resp B/P (MAP) Pulse Ox O2 Delivery O2 Flow Rate FiO2 07/13/19 08:10 98.1 75 18 150/85 (106) 99 Room Air Sp02 EP Interpretation: reviewed, normal General Appearance: well appearing, no apparent distress, alert Head: normocephalic, atraumatic Eyes: bilateral eye PERRL, bilateral eye EOMI ENT: uvula midline, moist mucus membranes Neck: supple, thyroid normal, supple/symm/no masses Respiratory: no respiratory distress, no retraction, no accessory muscle use, crackles - Mild at the base Cardiovascular #1: normal peripheral pulses, regular rate, rhythm, no edema, no gallop, no murmur Gastrointestinal: non tender, soft, no guarding, no rebound Musculoskeletal: normal inspection Neurologic: alert, oriented x3 Psychiatric: mood/affect normal Skin: no rash, warm/dry Medical Decision Making ER Course 58-year-old male presents with dyspnea x1 day, patient ran out of his Lasix yesterday, patient obtained a refill, patient states he thinks his lungs are filling up with fluid, on the differential includes CHF, ACS, medical noncompliance, pneumonia, patient on exam has some crackles very mild, patient is able to lie flat, no JVD, patient is in no acute distress speaking full sentences Patient with mild CHF exacerbation x-ray negative, crackles on exam. Dose of Lasix given in the ED Patient is able to make urine. Re-evaluation 8:46 AM, patient sleeping comfortably in bed no evidence of JVD, patient is flat asking for a sandwich Reevaluation 9:16AM patient doing well. Dispo home w/ return precautions Laboratory Tests Test 07/13/19 08:30 White Blood Count 6.2 K/UL (4.8-10.8) Red Blood Count 4.36 M/UL (4.70-6.10) L Hemoglobin 12.5 G/DL (14.2-18.0) L Hematocrit 38.6 % (42.0-52.0) L Mean Corpuscular Volume 89 FL (80-99) Mean Corpuscular Hemoglobin 28.8 PG (27.0-31.0) Mean Corpuscular Hemoglobin Concent 32.4 G/DL (32.0-36.0) Red Cell Distribution Width 12.2 % (11.6-14.8) Platelet Count 272 K/UL (150-450) Mean Platelet Volume 5.3 FL (6.5-10.1) L Neutrophils (%) (Auto) 64.9 % (45.0-75.0) Lymphocytes (%) (Auto) 23.0 % (20.0-45.0) Monocytes (%) (Auto) 8.9 % (1.0-10.0) Eosinophils (%) (Auto) 2.4 % (0.0-3.0) Basophils (%) (Auto) 0.8 % (0.0-2.0) Prothrombin Time 11.0 SEC (9.30-11.50) Prothrombin Time INR 1.0 (0.9-1.1) PTT 26 SEC (23-33) Sodium Level 136 MMOL/L (136-145) Potassium Level 3.8 MMOL/L (3.5-5.1) Chloride Level 102 MMOL/L (98-107) Carbon Dioxide Level 27 MMOL/L (21-32) Anion Gap 8 mmol/L (5-15) Blood Urea Nitrogen 33 mg/dL (7-18) H Creatinine 1.3 MG/DL (0.55-1.30) Estimate Glomerular Filtration Rate 56.7 mL/min (>60) Glucose Level 95 MG/DL (74-106) Calcium Level 8.9 MG/DL (8.5-10.1) Magnesium Level 2.2 MG/DL (1.5-2.4) Total Bilirubin 0.7 MG/DL (0.2-1.0) Aspartate Amino Transferase (AST) 45 U/L (15-37) H Alanine Aminotransferase (ALT) 52 U/L (12-78) Alkaline Phosphatase 87 U/L (46-116) Total Creatine Kinase 278 U/L (26-308) Creatine Kinase MB 7.7 NG/ML (0.0-3.6) H Creatine Kinase MB Relative Index 2.7 Troponin I 0.000 ng/mL (0.000-0.056) Pro-B-Type Natriuretic Peptide 5977 pg/mL (0-125) H Total Protein 6.7 G/DL (6.4-8.2) Albumin 3.2 G/DL (3.4-5.0) L Globulin 3.5 g/dL Albumin/Globulin Ratio 0.9 (1.0-2.7) L Lipase 152 U/L (73-393) EKG Diagnostic Results EKG Time: 08:23 EP Interpretation: NSR, rate 84, QTc 519, no acute ST elevations, left axis truong Rate: normal Rhythm: NSR ST Segments: no acute changes Rhythm Strip Diag. Results Rhythm Strip Time: 08:34 EP Interpretation: yes Rate: 84 Rhythm: NSR, no PVC's, no ectopy Chest X-Ray Diagnostic Results Chest X-Ray Diagnostic Results : Chest X-Ray Ordered: Yes # of Views/Limited/Complete: 1 View Indication: Shortness of Breath EP Interpretation: Yes Interpretation: no consolidation, no effusion, no pneumothorax, no acute cardiopulmonary disease Impression: No acute disease Electronically Signed by: Evan Chino MD Last Vital Signs Date Time Temp Pulse Resp B/P (MAP) Pulse Ox O2 Delivery O2 Flow Rate FiO2 07/13/19 08:24 98.1 87 18 133/94 99 Room Air Disposition: HOME, SELF-CARE Condition: Stable Scripts Furosemide* (LASIX*) 40 Mg Tablet 40 MG ORAL DAILY, #30 TAB Prov: Evan Chino MD 07/13/19 Referrals: [facility] Patient Instructions: Heart Failure, [id number] Additional Instructions: The patient was provided with discharge instructions, notified to follow-up with a primary care doctor and or specialist in the next 24-48 hours, and to return to the ED if they have worsening of their symptoms. Please note that this report is being documented using [employer] technology. This can lead to erroneous entry secondary to incorrect interpretation by the dictating instrument. Evan Chino MD Jul 13, 2019 08:30
[2019-07-13 08:36] LABS: BASOPHILS % (AUTO) 0.8 % (0.0-2.0); EOSINOPHILS % (AUTO) 2.4 % (0.0-3.0); HEMATOCRIT 38.6 % (42.0-52.0); HEMOGLOBIN 12.5 G/DL (14.2-18.0); MEAN CORPUSCULAR VOLUME 89 FL (80-99); MONOCYTES % (AUTO) 8.9 % (1.0-10.0); NEUTROPHILS % (AUTO) 64.9 % (45.0-75.0); PLATELET COUNT 272 K/UL (150-450); RED BLOOD COUNT 4.36 M/UL (4.70-6.10); RED CELL DISTRIBUTION WIDTH 12.2 % (11.6-14.8); WHITE BLOOD COUNT 6.2 K/UL (4.8-10.8)
[2019-07-13 08:49] LABS: ANION GAP 8 mmol/L (5-15); BLOOD UREA NITROGEN 33 mg/dL (7-18); CALCIUM 8.9 MG/DL (8.5-10.1); CARBON DIOXIDE 27 MMOL/L (21-32); CHLORIDE 102 MMOL/L (98-107); CREATININE 1.3 MG/DL (0.55-1.30); POTASSIUM 3.8 MMOL/L (3.5-5.1); SODIUM 136 MMOL/L (136-145)
--- NOTE | 2019-07-13 09:04 | Diagnostic Imaging Report ---
EXAM: XR Chest, 1 View CLINICAL HISTORY: CP TECHNIQUE: Frontal view of the chest. COMPARISON: Chest x-ray, 07/05/19 FINDINGS: Lungs: Mild vascular and interstitial prominence, similar to prior study. No consolidation. Pleural space: Unremarkable. No pneumothorax. Heart: Cardiomegaly. Mediastinum: Unremarkable. Bones/joints: Unremarkable. IMPRESSION: 1. Cardiomegaly. 2. Mild vascular and interstitial prominence, similar to prior study.
[2019-07-13 09:06] LABS: ALANINE AMINOTRANSFERASE 52 U/L (12-78); ALBUMIN 3.2 G/DL (3.4-5.0); ALBUMIN/GLOBULIN RATIO 0.9 (1.0-2.7); ALKALINE PHOSPHATASE 87 U/L (46-116); ASPARTATE AMINO TRANSFERASE 45 U/L (15-37); BILIRUBIN,TOTAL 0.7 MG/DL (0.2-1.0); CKMB 7.7 NG/ML (0.0-3.6); CREATINE KINASE 278 U/L (26-308)
[2019-07-13] MEDS ORDERED: FUROSEMIDE40 MG ORAL (09:16)
--- NOTE | 2019-07-13 09:19 | NUR ---
ED Nurse Note: Sanwich and juice given at bedside, ERMD confirmed that it is ok.
[2019-07-13 09:29] VITALS: BP 115/84
[2019-07-13 09:30] VITALS: BP 133/94
[2019-07-14] MEDS ORDERED: Morphine Sulfate 4mg/ml Inj (IV USE ONLY) ONE (07:10)
[2019-07-14] MEDS ORDERED: FUROSEMIDE40 MG ORAL (08:39)
== END 2019-07-13 09:30 | disposition home or self-care (01) ==
LOC: EMR 08:10
DX: I50.9 Heart failure, unspecified (principal); Z88.0 Allergy status to penicillin; I11.0 Hypertensive heart disease with heart failure; F12.10 Cannabis abuse, uncomplicated; Z59.0 Homelessness
CPT/HCPCS: 36415; 71045; 80053; 82550; 82553; 83690; 83735; 83880; 84484; 85025; 85610; 85730; 93005; 96374; 96375; 99284; J1940; J2405; S0028

== ENCOUNTER 2019-07-14 06:30 | Emergency (ER) | payer MEDICAID ==
[~2019-07-14] VITALS: Ht 180.3 cm; Wt 72.6 kg
--- NOTE | 2019-07-14 06:46 | NUR ---
ED Nurse Note: Walk-in patient presents with complaints of chest pain and SOB. Patient reports history of CHF.
[2019-07-14 06:47] VITALS: BP 141/108
[2019-07-14 07:00] LABS: BASOPHILS % (AUTO) 0.6 % (0.0-2.0); EOSINOPHILS % (AUTO) 2.2 % (0.0-3.0); HEMATOCRIT 38.5 % (42.0-52.0); HEMOGLOBIN 12.8 G/DL (14.2-18.0); LYMPHOCYTES % (AUTO) 21.1 % (20.0-45.0); MEAN CORPUSCULAR VOLUME 88 FL (80-99); MONOCYTES % (AUTO) 8.5 % (1.0-10.0); NEUTROPHILS % (AUTO) 67.6 % (45.0-75.0); PLATELET COUNT 268 K/UL (150-450); RED CELL DISTRIBUTION WIDTH 11.9 % (11.6-14.8); WHITE BLOOD COUNT 7.4 K/UL (4.8-10.8)
--- NOTE | 2019-07-14 07:04 | NUR ---
ED Nurse Note: Blood drawn, urine collected and sent down to lab. Patient tolerated Lasix well and is currently awaiting his second void. vital signs are stable and documented.
[2019-07-14 07:05] VITALS: BP 140/101
[2019-07-14 07:10] LABS: ANION GAP 7 mmol/L (5-15); BLOOD UREA NITROGEN 37 mg/dL (7-18); CALCIUM 9.1 MG/DL (8.5-10.1); CARBON DIOXIDE 29 MMOL/L (21-32); CHLORIDE 100 MMOL/L (98-107); CREATININE 1.6 MG/DL (0.55-1.30); POTASSIUM 4.1 MMOL/L (3.5-5.1); SODIUM 136 MMOL/L (136-145)
[2019-07-14 07:15] VITALS: BP 142/106
[2019-07-14] MEDS ORDERED: Morphine Sulfate 4mg/ml Inj (IV USE ONLY) IVP ONE (07:15)
--- NOTE | 2019-07-14 07:15 | NUR ---
HAND-OFF: Report given to Amanda CANO.
--- NOTE | 2019-07-14 07:15 | NUR ---
ED Nurse Note: Received report from Lea CANO. Patient is alert and oriented x4, verbally responsive. Breathing even and unlabored. No SOB. Xray done as ordered.
[2019-07-14 07:23] LABS: ALANINE AMINOTRANSFERASE 68 U/L (12-78); ALBUMIN 3.4 G/DL (3.4-5.0); ALBUMIN/GLOBULIN RATIO 0.9 (1.0-2.7); ALKALINE PHOSPHATASE 92 U/L (46-116); ASPARTATE AMINO TRANSFERASE 51 U/L (15-37); BILIRUBIN,TOTAL 0.7 MG/DL (0.2-1.0); CKMB 7.3 NG/ML (0.0-3.6); CREATINE KINASE 268 U/L (26-308)
--- NOTE | 2019-07-14 07:33 | NUR ---
ED Nurse Note: Breakfast was given. aware.
--- NOTE | 2019-07-14 07:37 | Emergency Room Report ---
History of Present Illness General Chief Complaint: Chest Pain Source: Patient, Medical Record Present Illness HPI 58-year-old male presents ED for evaluation. Of chest pain and shortness of breath since this morning. Midsternal, tightness. 7 out of 10, nonradiating. States that he does have history of CHF. States that he was here yesterday but was unable to fill his Lasix prescription as the pharmacies are closed. Denies any leg swelling. Admits to marijuana use. Denies any other drug use. No other aggravating relieving factors. No other associated symptoms Allergies: Coded Allergies: PENICILLINS (Verified Allergy, Unknown, 06/30/19) Patient History Past Medical History: HTN, CHF Past Surgical History: none Pertinent Family History: none Social History: Reports: drug use; Denies: smoking, alcohol use Immunizations: UTD Reviewed Nursing Documentation: PMH: Agreed; PSxH: Agreed Nursing Documentation-PMH Past Medical History: No History, Except For Hx Cardiac Problems: Yes - CHF Hx Hypertension: Yes Review of Systems All Other Systems: negative except mentioned in HPI Physical Exam Vital Signs Date Time Temp Pulse Resp B/P (MAP) Pulse Ox O2 Delivery O2 Flow Rate FiO2 07/14/19 06:32 97.5 90 18 141/108 (119) 94 Room Air Sp02 EP Interpretation: reviewed, normal General Appearance: no apparent distress, alert, GCS 15, non-toxic Head: normocephalic, atraumatic Eyes: bilateral eye normal inspection, bilateral eye PERRL ENT: hearing grossly normal, normal pharynx, no angioedema, normal voice Neck: full range of motion, supple/symm/no masses Respiratory: chest non-tender, lungs clear, normal breath sounds, speaking full sentences Cardiovascular #1: regular rate, rhythm, no edema Cardiovascular #2: 2+ carotid (R), 2+ carotid (L), 2+ radial (R), 2+ radial (L) , 2+ dorsalis pedis (R), 2+ dorsalis pedis (L) Gastrointestinal: normal bowel sounds, non tender, soft, non-distended, no guarding, no rebound Rectal: deferred Genitourinary: normal inspection, no CVA tenderness Musculoskeletal: back normal, gait/station normal, normal range of motion, non- tender Neurologic: alert, oriented x3, responsive, motor strength/tone normal, sensory intact, speech normal Psychiatric: judgement/insight normal, memory normal, mood/affect normal, no suicidal/homicidal ideation Reflexes: 3+ bicep (R), 3+ bicep (L), 3+ tricep (R), 3+ tricep (L), 3+ knee (R) , 3+ knee (L) Lymphatic: no adenopathy Medical Decision Making Homeless Attestation I, The treating physician Dr. Redman, have assessed and agrees that patient is medically stable for discharge to an outpatient disposition. Diagnostic Impression: Primary Impression: History of congestive heart failure Additional Impressions: Substance abuse Renal insufficiency ER Course Hospital Course 58-year-old M presents ED complaining of chest pain, SOB Differential diagnoses include: Rib fracture, IL/unstable angina, contusion, muscle strain Clinical course Patient placed on stretcher. After initial history and physical I ordered labs , EKG, chest x-ray. labs reviewed- Cr 1.6, troponins negative, no leukocytosis, BNP elevated, hemoglobin/hematocrit stable, drug screen positive amphetamines EKG - NSR, twave inversions in lateral leads Chest x-ray- noted cardiomegaly, CHF I reviewed EMR. Patient has been here multiple times recently for similar presentation. Was here yesterday and states he could not get his Lasix prescription filled because it was Sunday. Given Lasix here. Given multiple visits with negative troponins I believe patient can be discharged home. homeless checklist completed. Will provide PMD referrals and we will reprint his Lasix prescription I. I feel this is a highly complex case requiring extensive working including EKG/Rhythm strip, Xray/CT/US, Blood/urine lab work, repeat exams while in ED, and administration of strong opiates/narcotics for pain control, admission to hospital or close patient follow up. Diagnosis - history of CHF, substance abuse, renal insufficiency Stable and discharged to home. Instructed to followup with PMD. Return to ED if symptoms recur or worsen Labs Test 07/14/19 06:45 White Blood Count 7.4 K/UL (4.8-10.8) Red Blood Count 4.40 M/UL (4.70-6.10) Hemoglobin 12.8 G/DL (14.2-18.0) Hematocrit 38.5 % (42.0-52.0) Mean Corpuscular Volume 88 FL (80-99) Mean Corpuscular Hemoglobin 29.2 PG (27.0-31.0) Mean Corpuscular Hemoglobin Concent 33.3 G/DL (32.0-36.0) Red Cell Distribution Width 11.9 % (11.6-14.8) Platelet Count 268 K/UL (150-450) Mean Platelet Volume 5.0 FL (6.5-10.1) Neutrophils (%) (Auto) 67.6 % (45.0-75.0) Lymphocytes (%) (Auto) 21.1 % (20.0-45.0) Monocytes (%) (Auto) 8.5 % (1.0-10.0) Eosinophils (%) (Auto) 2.2 % (0.0-3.0) Basophils (%) (Auto) 0.6 % (0.0-2.0) Sodium Level 136 MMOL/L (136-145) Potassium Level 4.1 MMOL/L (3.5-5.1) Chloride Level 100 MMOL/L (98-107) Carbon Dioxide Level 29 MMOL/L (21-32) Anion Gap 7 mmol/L (5-15) Blood Urea Nitrogen 37 mg/dL (7-18) Creatinine 1.6 MG/DL (0.55-1.30) Estimat Glomerular Filtration Rate 44.6 mL/min (>60) Glucose Level 111 MG/DL (74-106) Calcium Level 9.1 MG/DL (8.5-10.1) Total Bilirubin 0.7 MG/DL (0.2-1.0) Aspartate Amino Transf (AST/SGOT) 51 U/L (15-37) Alanine Aminotransferase (ALT/SGPT) 68 U/L (12-78) Alkaline Phosphatase 92 U/L (46-116) Total Creatine Kinase 268 U/L (26-308) Creatine Kinase MB 7.3 NG/ML (0.0-3.6) Creatine Kinase MB Relative Index 2.7 Troponin I 0.000 ng/mL (0.000-0.056) Pro-B-Type Natriuretic Peptide 7176 pg/mL (0-125) Total Protein 7.1 G/DL (6.4-8.2) Albumin 3.4 G/DL (3.4-5.0) Globulin 3.7 g/dL Albumin/Globulin Ratio 0.9 (1.0-2.7) Urine Opiates Screen Negative (NEGATIVE) Urine Barbiturates Screen Negative (NEGATIVE) Phencyclidine (PCP) Screen Negative (NEGATIVE) Urine Amphetamines Screen Positive (NEGATIVE) Urine Benzodiazepines Screen Negative (NEGATIVE) Urine Cocaine Screen Negative (NEGATIVE) Urine Marijuana (THC) Screen Positive (NEGATIVE) EKG Diagnostic Results Rate: normal Rhythm: NSR ST Segments: other - twave inversions in lateral leads ASA given to the pt in ED: No Rhythm Strip Diag. Results EP Interpretation: yes Rhythm: NSR, no PVC's, no ectopy Chest X-Ray Diagnostic Results Chest X-Ray Diagnostic Results : Chest X-Ray Ordered: Yes # of Views/Limited/Complete: 1 View Indication: Shortness of Breath EP Interpretation: Yes Interpretation: no consolidation, no pneumothorax, other - cardiomegaly Impression: Other - cardiomegaly/CHF Electronically Signed by: Electronically signed by Randall Redman MD Last Vital Signs Date Time Temp Pulse Resp B/P (MAP) Pulse Ox O2 Delivery O2 Flow Rate FiO2 07/14/19 07:15 98.1 96 21 142/106 98 Room Air Status: improved Disposition: HOME, SELF-CARE Condition: Stable Scripts Furosemide* (LASIX*) 40 Mg Tablet 40 MG ORAL DAILY, #30 TAB Prov: Randall Redman MD 07/14/19 Referrals: NON PHYSICIAN (PCP) Randall Redman MD Jul 14, 2019 07:37
[2019-07-14] MEDS ORDERED: FUROSEMIDE40 MG ORAL (08:39)
--- NOTE | 2019-07-14 09:23 | NUR ---
ED Nurse Note: Prescribed medication was picked up from [facility] pharmacy and was given to the patient.
[2019-07-14 09:25] VITALS: BP 142/106
--- NOTE | 2019-07-14 09:25 | NUR ---
ED Nurse Note: Pt cleared by ERMD for discharge. DC instructions/prescription was given and explained to pt and verbalized understanding of teachings. All medical devices such as ID band and IV line removed. Pt is AAO x4, ambulatory and left with all personal belongings.
== END 2019-07-14 09:25 | disposition home or self-care (01) ==
LOC: EMR 06:48
DX: I50.9 Heart failure, unspecified (principal); F15.10 Other stimulant abuse, uncomplicated; N28.9 Disorder of kidney and ureter, unspecified; I11.0 Hypertensive heart disease with heart failure; Z88.0 Allergy status to penicillin; F12.10 Cannabis abuse, uncomplicated; R07.9 Chest pain, unspecified
CPT/HCPCS: 36415; 71045; 80053; 80307; 82550; 82553; 83880; 84484; 85025; 93005; 96374; 96375; 99284; J1940; J2270; S0028

== ENCOUNTER 2019-07-16 21:42 | Emergency (ER) | payer MEDICAID ==
[~2019-07-16] VITALS: Ht 180.3 cm; Wt 72.6 kg
[2019-07-16 22:00] VITALS: BP 146/101
--- NOTE | 2019-07-16 22:00 | NUR ---
ED Nurse Note: Pt ambulated to ED from home c/o dyspnea upon exertion, VSS, pt ios A&Ox4
--- NOTE | 2019-07-16 22:23 | Emergency Room Report ---
History of Present Illness General Chief Complaint: Dyspnea/Respdistress Source: Patient Present Illness HPI 58-year-old male history of CHF presents with recurrent chest tightness and shortness of breath that started at 12 PM constant no aggravating relieving factors, patient states that he has been taking his Lasix, denies any nausea vomiting he does endorse some shortness of breath, no fevers chills cough or congestion, patient presents for evaluation. Allergies: Coded Allergies: PENICILLINS (Verified Allergy, Unknown, 06/30/19) Patient History Past Medical History: see triage record Reviewed Nursing Documentation: PMH: Agreed; PSxH: Agreed Nursing Documentation-PMH Past Medical History: No History, Except For Hx Cardiac Problems: Yes - CHF Hx Hypertension: Yes Review of Systems All Other Systems: negative except mentioned in HPI Physical Exam Vital Signs Date Time Temp Pulse Resp B/P (MAP) Pulse Ox O2 Delivery O2 Flow Rate FiO2 07/16/19 21:53 97.7 90 18 146/101 (116) 95 Room Air Sp02 EP Interpretation: reviewed, normal General Appearance: well appearing, no apparent distress, alert Head: normocephalic, atraumatic Eyes: bilateral eye PERRL, bilateral eye EOMI ENT: uvula midline, moist mucus membranes Neck: supple, thyroid normal, supple/symm/no masses Respiratory: lungs clear, no respiratory distress, no retraction, no accessory muscle use Cardiovascular #1: normal peripheral pulses, regular rate, rhythm, no edema, no gallop, no murmur Gastrointestinal: non tender, soft, no guarding, no rebound Musculoskeletal: normal inspection Neurologic: alert, oriented x3 Psychiatric: mood/affect normal Skin: no rash, warm/dry Medical Decision Making ER Course 58-year-old male presents with dyspnea, shortness of breath, patient with recurrent visits to the ER, labs show no acute findings, chest x-ray is negative no crackles on exam, patient may have secondary gain, he is requesting food and likes to sleep in the ER. Counseled patient low risk for acute heart failure's ACS, pneumonia, chest x-ray EKG negative. Disposition home with return precautions Laboratory Tests Test 07/16/19 21:55 White Blood Count 6.8 K/UL (4.8-10.8) Red Blood Count 4.20 M/UL (4.70-6.10) L Hemoglobin 12.1 G/DL (14.2-18.0) L Hematocrit 37.0 % (42.0-52.0) L Mean Corpuscular Volume 88 FL (80-99) Mean Corpuscular Hemoglobin 28.8 PG (27.0-31.0) Mean Corpuscular Hemoglobin Concent 32.7 G/DL (32.0-36.0) Red Cell Distribution Width 11.9 % (11.6-14.8) Platelet Count 296 K/UL (150-450) Mean Platelet Volume 4.8 FL (6.5-10.1) L Neutrophils (%) (Auto) 70.4 % (45.0-75.0) Lymphocytes (%) (Auto) 16.5 % (20.0-45.0) L Monocytes (%) (Auto) 10.0 % (1.0-10.0) Eosinophils (%) (Auto) 2.4 % (0.0-3.0) Basophils (%) (Auto) 0.6 % (0.0-2.0) Sodium Level 137 MMOL/L (136-145) Potassium Level 3.5 MMOL/L (3.5-5.1) Chloride Level 101 MMOL/L (98-107) Carbon Dioxide Level 30 MMOL/L (21-32) Anion Gap 6 mmol/L (5-15) Blood Urea Nitrogen 38 mg/dL (7-18) H Creatinine 1.8 MG/DL (0.55-1.30) H Estimate Glomerular Filtration Rate 38.9 mL/min (>60) Glucose Level 146 MG/DL (74-106) H Calcium Level 9.0 MG/DL (8.5-10.1) Magnesium Level 2.1 MG/DL (1.8-2.4) Total Bilirubin 0.9 MG/DL (0.2-1.0) Aspartate Amino Transferase (AST) 57 U/L (15-37) H Alanine Aminotransferase (ALT) 82 U/L (12-78) H Alkaline Phosphatase 91 U/L (46-116) Total Creatine Kinase 546 U/L (26-308) H Creatine Kinase MB 17.7 NG/ML (0.0-3.6) H Creatine Kinase MB Relative Index 3.2 Troponin I 0.000 ng/mL (0.000-0.056) Pro-B-Type Natriuretic Peptide 8321 pg/mL (0-125) H Total Protein 6.0 G/DL (6.4-8.2) L Albumin 3.1 G/DL (3.4-5.0) L Globulin 2.9 g/dL Albumin/Globulin Ratio 1.1 (1.0-2.7) Lipase 145 U/L (73-393) EKG Diagnostic Results EKG Time: 21:56 EP Interpretation: NSR, rate 89, QTc 532, no acute ST elevations, flipped T waves V5 V6 1 Rate: normal Rhythm: NSR ST Segments: no acute changes Other Impression comparison 07/04/2019 unchanged Rhythm Strip Diag. Results Rhythm Strip Time: 00:14 EP Interpretation: yes Rate: 87 Rhythm: NSR, no PVC's, no ectopy Chest X-Ray Diagnostic Results Chest X-Ray Diagnostic Results : Chest X-Ray Ordered: Yes # of Views/Limited/Complete: 1 View Indication: Shortness of Breath EP Interpretation: Yes Interpretation: no consolidation, no effusion, no pneumothorax, no acute cardiopulmonary disease Impression: No acute disease Electronically Signed by: Evan Chino MD Last Vital Signs Date Time Temp Pulse Resp B/P (MAP) Pulse Ox O2 Delivery O2 Flow Rate FiO2 07/16/19 21:53 97.7 90 18 146/101 (116) 95 Room Air Disposition: HOME, SELF-CARE Condition: Stable Referrals: [facility] Patient Instructions: Shortness of Breath, [id number] Additional Instructions: The patient was provided with discharge instructions, notified to follow-up with a primary care doctor and or specialist in the next 24-48 hours, and to return to the ED if they have worsening of their symptoms. Please note that this report is being documented using Ebuzzing and Teads technology. This can lead to erroneous entry secondary to incorrect interpretation by the dictating instrument. Evan Chino MD Jul 16, 2019 22:23
[2019-07-16 22:25] LABS: BASOPHILS % (AUTO) 0.6 % (0.0-2.0); EOSINOPHILS % (AUTO) 2.4 % (0.0-3.0); HEMOGLOBIN 12.1 G/DL (14.2-18.0); LYMPHOCYTES % (AUTO) 16.5 % (20.0-45.0); MEAN CORPUSCULAR VOLUME 88 FL (80-99); NEUTROPHILS % (AUTO) 70.4 % (45.0-75.0); PLATELET COUNT 296 K/UL (150-450); RED CELL DISTRIBUTION WIDTH 11.9 % (11.6-14.8); WHITE BLOOD COUNT 6.8 K/UL (4.8-10.8)
[2019-07-16 22:52] LABS: ANION GAP 6 mmol/L (5-15); BLOOD UREA NITROGEN 38 mg/dL (7-18); CARBON DIOXIDE 30 MMOL/L (21-32); CHLORIDE 101 MMOL/L (98-107); CREATININE 1.8 MG/DL (0.55-1.30); POTASSIUM 3.5 MMOL/L (3.5-5.1); SODIUM 137 MMOL/L (136-145)
[2019-07-16 22:58] LABS: ALANINE AMINOTRANSFERASE 82 U/L (12-78); ALBUMIN 3.1 G/DL (3.4-5.0); ALBUMIN/GLOBULIN RATIO 1.1 (1.0-2.7); ALKALINE PHOSPHATASE 91 U/L (46-116); ASPARTATE AMINO TRANSFERASE 57 U/L (15-37); BILIRUBIN,TOTAL 0.9 MG/DL (0.2-1.0); CKMB 17.7 NG/ML (0.0-3.6); CREATINE KINASE 546 U/L (26-308)
--- NOTE | 2019-07-17 00:15 | NUR ---
ED Nurse Note: Pt resting in bed with eyes closed, non-labored breathing, no signs of distress, pt has voided 3 full urinals of light yellow urine. will continue to monitor
[2019-07-17 01:30] VITALS: BP 146/101
--- NOTE | 2019-07-17 12:13 | Diagnostic Imaging Report ---
Indication: Dyspnea Technique: One view of the chest Comparison: 07/14/2019 Findings: Again demonstrated is mild interstitial edema, manifested primarily by Cory B-lines. The heart remains enlarged. No effusions. No focal airspace consolidation. Findings are unchanged Impression: Cardiomegaly, with mild interstitial edema unchanged since prior exam of 2 days earlier
== END 2019-07-17 01:30 | disposition home or self-care (01) ==
LOC: EMR 22:14
DX: R06.00 Dyspnea, unspecified (principal); I11.0 Hypertensive heart disease with heart failure; I50.9 Heart failure, unspecified; Z88.0 Allergy status to penicillin
CPT/HCPCS: 36415; 71045; 80053; 82550; 82553; 83690; 83735; 83880; 84484; 85025; 93005; 96374; 99284; J1940

== ENCOUNTER 2019-07-30 21:10 | Emergency (ER) | payer MEDICAID ==
--- NOTE | 2019-07-30 21:30 | NUR ---
ED Nurse Note: Patient currently not in waiting room
--- NOTE | 2019-07-30 21:35 | NUR ---
ED Nurse Note: Called patient 3 times, not in waiting room
--- NOTE | 2019-07-30 21:40 | NUR ---
ED Nurse Note: Patient's initial complaint was that he was not able to walk however patient ambulated out the waiting room with a steady gait
--- NOTE | 2019-07-31 03:51 | Emergency Room Report ---
History of Present Illness General Chief Complaint: To Be Triaged Present Illness Allergies: Coded Allergies: PENICILLINS (Verified Allergy, Unknown, 06/30/19) Nursing Documentation-PMH Hx Cardiac Problems: Yes - CHF Hx Hypertension: Yes Medical Decision Making Diagnostic Impression: Primary Impression: Patient left without being seen ER Course Patient left without being seen Status: unchanged Disposition: LEFT W/OUT BEING SEEN Condition: Stable Referrals: NOT CHOSEN IPA/,REFERRING (PCP) Randall Redman MD Jul 31, 2019 03:51
== END 2019-07-30 21:40 | disposition left against medical advice (07) ==
LOC: EMR 21:40
DX: Z53.21 Procedure and treatment not carried out due to patient leaving prior to being seen by health care provider (principal); I11.0 Hypertensive heart disease with heart failure; Z88.0 Allergy status to penicillin

== ENCOUNTER 2019-08-02 23:31 | Emergency (ER) | payer MEDICAID ==
[~2019-08-02] VITALS: Ht 180.3 cm; Wt 72.6 kg
--- NOTE | 2019-08-03 | NUR ---
ED Nurse Note: Pt ambulated to ED c/o of 10/10 chest pain and sob, pt reports having taking meth 3 hrs previous. VSS
[2019-08-03 00:24] LABS: BASOPHILS % (AUTO) 0.8 % (0.0-2.0); EOSINOPHILS % (AUTO) 2.7 % (0.0-3.0); HEMATOCRIT 39.9 % (42.0-52.0); HEMOGLOBIN 12.9 G/DL (14.2-18.0); LYMPHOCYTES % (AUTO) 17.7 % (20.0-45.0); MEAN CORPUSCULAR VOLUME 87 FL (80-99); MONOCYTES % (AUTO) 8.9 % (1.0-10.0); NEUTROPHILS % (AUTO) 69.9 % (45.0-75.0); PLATELET COUNT 384 K/UL (150-450); RED CELL DISTRIBUTION WIDTH 12.5 % (11.6-14.8); WHITE BLOOD COUNT 8.3 K/UL (4.8-10.8)
[2019-08-03 00:28] LABS: ANION GAP 9 mmol/L (5-15); BLOOD UREA NITROGEN 35 mg/dL (7-18); CALCIUM 9.4 MG/DL (8.5-10.1); CARBON DIOXIDE 27 MMOL/L (21-32); CHLORIDE 103 MMOL/L (98-107); CREATININE 1.6 MG/DL (0.55-1.30); POTASSIUM 4.9 MMOL/L (3.5-5.1); SODIUM 139 MMOL/L (136-145)
[2019-08-03 00:35] VITALS: BP 131/99
[2019-08-03 00:44] LABS: ALANINE AMINOTRANSFERASE 56 U/L (12-78); ALBUMIN 3.2 G/DL (3.4-5.0); ALBUMIN/GLOBULIN RATIO 0.8 (1.0-2.7); ALKALINE PHOSPHATASE 96 U/L (46-116); ASPARTATE AMINO TRANSFERASE 33 U/L (15-37); BILIRUBIN,TOTAL 0.6 MG/DL (0.2-1.0); CKMB 6.3 NG/ML (0.0-3.6); CREATINE KINASE 143 U/L (26-308)
[2019-08-03] MEDS ORDERED: HYDROcodone/Acetamin 5/325 tab ORAL ONE (01:00)
--- NOTE | 2019-08-03 02:00 | NUR ---
ED Nurse Note: Pt resting in bed with eyes closed, non-labored breathing, no signs of distress. Pt offered sandwhich, pt accepted. Moans occasionally. NO further orders at this time. Will continue to monitor
--- NOTE | 2019-08-03 04:57 | Emergency Room Report ---
History of Present Illness General Chief Complaint: Chest Pain Source: Patient, Medical Record Present Illness HPI 58-year-old male presents ED for evaluation. Patient complaining of shortness of breath x 1 day. states he has history of CHF and states his Lasix is not working. Denies chest pain. Denies drug use. Denies leg swelling. No other aggravating relieving factors. Denies any other associated symptoms Allergies: Coded Allergies: PENICILLINS (Verified Allergy, Unknown, 06/30/19) Patient History Past Medical History: none, HTN, CHF Past Surgical History: none Pertinent Family History: none Social History: Denies: smoking, alcohol use, drug use Immunizations: UTD Reviewed Nursing Documentation: PMH: Agreed; PSxH: Agreed Nursing Documentation-PMH Hx Cardiac Problems: Yes - CHF Hx Hypertension: Yes Review of Systems All Other Systems: negative except mentioned in HPI Physical Exam Vital Signs Date Time Temp Pulse Resp B/P (MAP) Pulse Ox O2 Delivery O2 Flow Rate FiO2 08/02/19 23:43 97.7 97 18 131/99 (110) 95 Room Air Sp02 EP Interpretation: reviewed, normal General Appearance: no apparent distress, alert, GCS 15, non-toxic Head: normocephalic, atraumatic Eyes: bilateral eye normal inspection, bilateral eye PERRL ENT: hearing grossly normal, normal pharynx, no angioedema, normal voice Neck: full range of motion, supple/symm/no masses Respiratory: chest non-tender, lungs clear, normal breath sounds, speaking full sentences Cardiovascular #1: regular rate, rhythm, no edema Cardiovascular #2: 2+ carotid (R), 2+ carotid (L), 2+ radial (R), 2+ radial (L) , 2+ dorsalis pedis (R), 2+ dorsalis pedis (L) Gastrointestinal: normal bowel sounds, non tender, soft, non-distended, no guarding, no rebound Rectal: deferred Genitourinary: normal inspection, no CVA tenderness Musculoskeletal: back normal, gait/station normal, normal range of motion, non- tender Neurologic: alert, oriented x3, responsive, motor strength/tone normal, sensory intact, speech normal Psychiatric: judgement/insight normal, memory normal, mood/affect normal, no suicidal/homicidal ideation Reflexes: 3+ bicep (R), 3+ bicep (L), 3+ tricep (R), 3+ tricep (L), 3+ knee (R) , 3+ knee (L) Lymphatic: no adenopathy Medical Decision Making Diagnostic Impression: Primary Impression: Dyspnea Qualified Codes: R06.00 - Dyspnea, unspecified Additional Impressions: Methamphetamine abuse History of congestive heart failure ER Course Hospital Course 58 yo M presents to ED c/o SOB. h/o CHF Differential diagnoses include: Rib fracture, FL/unstable angina, contusion, muscle strain Clinical course Patient placed on stretcher. After initial history and physical I ordered labs , EKG, chest x-ray. labs reviewed- all electrolytes normal, troponins negative, no leukocytosis, hemoglobin/hematocrit stable, UTox + THC + amphetamines EKG - NSR, no acute ischemic changes interpreted by me Chest x-ray-no cardiomegaly, no rib fracture, no pneumothorax, no acute process Patient given dose of IV Lasix. Patient been here several times for similar presentation. Patient slept in ED with stable vitals. Woke up and is requesting discharge. Instructed on dangers of methamphetamine use which patient denies. Does not have a PMD. Will provide referrals. States he has his prescription for Lasix I. I feel this is a highly complex case requiring extensive working including EKG/Rhythm strip, Xray/CT/US, Blood/urine lab work, repeat exams while in ED, and administration of strong opiates/narcotics for pain control, admission to hospital or close patient follow up. Diagnosis - dyspnea, methamphetamine use, h/o CHF Stable and discharged to home. Instructed to followup with PMD. Return to ED if symptoms recur or worsen Labs Test 08/03/19 00:05 08/03/19 01:00 White Blood Count 8.3 K/UL (4.8-10.8) Red Blood Count 4.60 M/UL (4.70-6.10) Hemoglobin 12.9 G/DL (14.2-18.0) Hematocrit 39.9 % (42.0-52.0) Mean Corpuscular Volume 87 FL (80-99) Mean Corpuscular Hemoglobin 28.1 PG (27.0-31.0) Mean Corpuscular Hemoglobin Concent 32.4 G/DL (32.0-36.0) Red Cell Distribution Width 12.5 % (11.6-14.8) Platelet Count 384 K/UL (150-450) Mean Platelet Volume 4.9 FL (6.5-10.1) Neutrophils (%) (Auto) 69.9 % (45.0-75.0) Lymphocytes (%) (Auto) 17.7 % (20.0-45.0) Monocytes (%) (Auto) 8.9 % (1.0-10.0) Eosinophils (%) (Auto) 2.7 % (0.0-3.0) Basophils (%) (Auto) 0.8 % (0.0-2.0) Sodium Level 139 MMOL/L (136-145) Potassium Level 4.9 MMOL/L (3.5-5.1) Chloride Level 103 MMOL/L (98-107) Carbon Dioxide Level 27 MMOL/L (21-32) Anion Gap 9 mmol/L (5-15) Blood Urea Nitrogen 35 mg/dL (7-18) Creatinine 1.6 MG/DL (0.55-1.30) Estimat Glomerular Filtration Rate 44.6 mL/min (>60) Glucose Level 107 MG/DL (74-106) Calcium Level 9.4 MG/DL (8.5-10.1) Total Bilirubin 0.6 MG/DL (0.2-1.0) Aspartate Amino Transf (AST/SGOT) 33 U/L (15-37) Alanine Aminotransferase (ALT/SGPT) 56 U/L (12-78) Alkaline Phosphatase 96 U/L (46-116) Total Creatine Kinase 143 U/L (26-308) Creatine Kinase MB 6.3 NG/ML (0.0-3.6) Creatine Kinase MB Relative Index 4.4 Troponin I 0.000 ng/mL (0.000-0.056) Pro-B-Type Natriuretic Peptide 6081 pg/mL (0-125) Total Protein 7.0 G/DL (6.4-8.2) Albumin 3.2 G/DL (3.4-5.0) Globulin 3.8 g/dL Albumin/Globulin Ratio 0.8 (1.0-2.7) Urine Opiates Screen Negative (NEGATIVE) Urine Barbiturates Screen Negative (NEGATIVE) Phencyclidine (PCP) Screen Negative (NEGATIVE) Urine Amphetamines Screen Positive (NEGATIVE) Urine Benzodiazepines Screen Negative (NEGATIVE) Urine Cocaine Screen Negative (NEGATIVE) Urine Marijuana (THC) Screen Positive (NEGATIVE) EKG Diagnostic Results Rate: normal Rhythm: NSR ST Segments: no acute changes ASA given to the pt in ED: No Rhythm Strip Diag. Results EP Interpretation: yes Rhythm: NSR, no PVC's, no ectopy Chest X-Ray Diagnostic Results Chest X-Ray Diagnostic Results : Chest X-Ray Ordered: Yes # of Views/Limited/Complete: 1 View Indication: Shortness of Breath EP Interpretation: Yes Interpretation: no consolidation, no effusion, no pneumothorax, no acute cardiopulmonary disease Impression: No acute disease Electronically Signed by: Electronically signed by Randall Redman MD Last Vital Signs Date Time Temp Pulse Resp B/P (MAP) Pulse Ox O2 Delivery O2 Flow Rate FiO2 08/03/19 01:30 97.7 08/03/19 00:35 97 18 Room Air 08/03/19 00:35 131/99 95 Status: improved Disposition: HOME, SELF-CARE Condition: Stable Referrals: NOT CHOSEN IPA/,REFERRING (PCP) Randall Redman MD Aug 03, 2019 04:57
[2019-08-03 05:15] VITALS: BP 131/99
--- NOTE | 2019-08-04 11:14 | Cardiology Report ---
APPROVED REPORT EKG Measurement Heart [id number] Normal sinus rhythm Possible Left atrial enlargement Left axis deviation Left bundle branch block Abnormal ECG
== END 2019-08-03 05:15 | disposition home or self-care (01) ==
LOC: EMR 08-03 02:20
DX: R06.00 Dyspnea, unspecified (principal); F15.10 Other stimulant abuse, uncomplicated; Z88.0 Allergy status to penicillin; I11.0 Hypertensive heart disease with heart failure; I50.9 Heart failure, unspecified; F12.90 Cannabis use, unspecified, uncomplicated
CPT/HCPCS: 36415; 71045; 80053; 80307; 82550; 82553; 83880; 84484; 85025; 93005; 96374; J1940; Z7502; 99284

== ENCOUNTER 2019-08-15 23:57 | Emergency (ER) | payer MEDICAID ==
[~2019-08-15] VITALS: Ht 167.6 cm; Wt 63.5 kg
[2019-08-16 00:06] VITALS: BP 159/88
--- NOTE | 2019-08-16 00:06 | NUR ---
ED Nurse Note: Walk-in patient with complaints of chest pain and SOB. Patient is ambulatory with dyspnea on exertion. Will continue to monitor and service appropriate orders.
--- NOTE | 2019-08-16 00:16 | NUR ---
ED Nurse Note: ERMD at bedside. Blood drawn and sent down to lab.
--- NOTE | 2019-08-16 00:18 | Emergency Room Report ---
History of Present Illness General Chief Complaint: Chest Pain Source: Patient Present Illness HPI Patient presents with complaints of shortness of breath Reports that he had recently increase his Lasix however still feels short of breath at nighttime Denies any chest pain denies any vomiting denies any fevers or chills denies any cough Denies any back or flank pain denies any recent travel Patient feels that laying down flat does worsen his symptoms denies any change with exertion Allergies: Coded Allergies: PENICILLINS (Verified Allergy, Unknown, 06/30/19) Patient History Past Medical History: see triage record Reviewed Nursing Documentation: PMH: Agreed; PSxH: Agreed Nursing Documentation-PMH Hx Cardiac Problems: Yes - CHF Hx Hypertension: Yes Review of Systems All Other Systems: negative except mentioned in HPI Physical Exam Vital Signs Date Time Temp Pulse Resp B/P (MAP) Pulse Ox O2 Delivery O2 Flow Rate FiO2 08/16/19 00:06 107 21 Room Air 08/16/19 00:06 97.9 159/88 (111) 100 Sp02 EP Interpretation: reviewed, normal General Appearance: well appearing, no apparent distress Head: normocephalic, atraumatic Eyes: bilateral eye PERRL, bilateral eye EOMI ENT: hearing grossly normal, normal pharynx, TMs + canals normal, uvula midline Neck: full range of motion, supple, no meningismus, no bony tend Respiratory: lungs clear, normal breath sounds, no rhonchi, no respiratory distress, no retraction, no accessory muscle use Cardiovascular #1: normal peripheral pulses, regular rate, rhythm, no edema, no gallop, no JVD, no murmur Gastrointestinal: normal bowel sounds, non tender, soft, no mass, no organomegaly, non-distended, no guarding, no hernia, no pulsatile mass, no rebound Genitourinary: no CVA tenderness Musculoskeletal: normal inspection Neurologic: oriented x3, responsive, passenger brakeman III-XII nml as tested, motor strength/ tone normal, sensory intact Psychiatric: mood/affect normal Skin: no rash Lymphatic: normal inspection, no adenopathy Medical Decision Making Diagnostic Impression: Primary Impression: CHF (congestive heart failure) Additional Impressions: COPD (chronic obstructive pulmonary disease) Drug abuse ER Course Patient is a fairly complex patient with multiple differential to consideration including but not limited to cardiac cardiopulmonary and vascular emergencies Patient provided with diuretics x-ray imaging shows some mild congestion along with COPD findings Patient also received breathing treatment Remains hemodynamically stable saturating well on room air patient was allowed to rest and was observed overnight in the emergency room Stable for close outpatient follow-up Labs Test 08/16/19 00:10 08/16/19 00:20 White Blood Count 7.8 K/UL (4.8-10.8) Red Blood Count 4.69 M/UL (4.70-6.10) Hemoglobin 13.1 G/DL (14.2-18.0) Hematocrit 40.3 % (42.0-52.0) Mean Corpuscular Volume 86 FL (80-99) Mean Corpuscular Hemoglobin 27.8 PG (27.0-31.0) Mean Corpuscular Hemoglobin Concent 32.4 G/DL (32.0-36.0) Red Cell Distribution Width 12.8 % (11.6-14.8) Platelet Count 340 K/UL (150-450) Mean Platelet Volume 4.8 FL (6.5-10.1) Neutrophils (%) (Auto) 76.8 % (45.0-75.0) Lymphocytes (%) (Auto) 14.4 % (20.0-45.0) Monocytes (%) (Auto) 7.3 % (1.0-10.0) Eosinophils (%) (Auto) 1.0 % (0.0-3.0) Basophils (%) (Auto) 0.5 % (0.0-2.0) Sodium Level 137 MMOL/L (136-145) Potassium Level 4.2 MMOL/L (3.5-5.1) Chloride Level 98 MMOL/L (98-107) Carbon Dioxide Level 28 MMOL/L (21-32) Anion Gap 11 mmol/L (5-15) Blood Urea Nitrogen 30 mg/dL (7-18) Creatinine 1.7 MG/DL (0.55-1.30) Estimat Glomerular Filtration Rate 41.6 mL/min (>60) Glucose Level 181 MG/DL (74-106) Calcium Level 8.8 MG/DL (8.5-10.1) Total Bilirubin 1.0 MG/DL (0.2-1.0) Aspartate Amino Transf (AST/SGOT) 38 U/L (15-37) Alanine Aminotransferase (ALT/SGPT) 47 U/L (12-78) Alkaline Phosphatase 87 U/L (46-116) Total Creatine Kinase 264 U/L (26-308) Creatine Kinase MB 7.9 NG/ML (0.0-3.6) Creatine Kinase MB Relative Index 2.9 Troponin I 0.000 ng/mL (0.000-0.056) Pro-B-Type Natriuretic Peptide 7247 pg/mL (0-125) Total Protein 7.5 G/DL (6.4-8.2) Albumin 3.4 G/DL (3.4-5.0) Globulin 4.1 g/dL Albumin/Globulin Ratio 0.8 (1.0-2.7) Lipase 177 U/L (73-393) Urine Opiates Screen Negative (NEGATIVE) Urine Barbiturates Screen Negative (NEGATIVE) Phencyclidine (PCP) Screen Negative (NEGATIVE) Urine Amphetamines Screen Positive (NEGATIVE) Urine Benzodiazepines Screen Negative (NEGATIVE) Urine Cocaine Screen Negative (NEGATIVE) Urine Marijuana (THC) Screen Positive (NEGATIVE) EKG Diagnostic Results Rate: normal Rhythm: NSR ST Segments: other - Nonspecific ST changes Rhythm Strip Diag. Results EP Interpretation: yes Rate: 88 Rhythm: NSR, no PVC's, no ectopy Chest X-Ray Diagnostic Results Chest X-Ray Diagnostic Results : Chest X-Ray Ordered: Yes # of Views/Limited/Complete: 1 View Indication: Chest Pain EP Interpretation: Yes Interpretation: no consolidation, no effusion, no pneumothorax, other - Pulmonary congestion, hyperexpansion Impression: Other - pulmonary congestion, COPD Electronically Signed by: Anh Betancourt DO Last Vital Signs Date Time Temp Pulse Resp B/P (MAP) Pulse Ox O2 Delivery O2 Flow Rate FiO2 08/16/19 00:06 97.9 85 21 159/88 100 Room Air Status: improved Disposition: HOME, SELF-CARE Condition: Improved Scripts Albuterol Sulfate* (ALBUTEROL SULFATE MDI*) 8.5 Gm Hfa.aer.ad 2 PUFF INH Q6H, #1 EA 0 Refills Prov: Anh Betancourt DO 08/16/19 Additional Instructions: Patient is provided with the discharge instructions notified to follow up with primary doctor in the next 2-3 days otherwise return to the er with any worsening symptoms. Please note that this report is being documented using [employer] technology. This can lead to erroneous entry secondary to incorrect interpretation by the dictating instrument. Anh Betancourt DO Aug 16, 2019 00:18
[2019-08-16 00:33] LABS: BASOPHILS % (AUTO) 0.5 % (0.0-2.0); HEMATOCRIT 40.3 % (42.0-52.0); HEMOGLOBIN 13.1 G/DL (14.2-18.0); LYMPHOCYTES % (AUTO) 14.4 % (20.0-45.0); MEAN CORPUSCULAR VOLUME 86 FL (80-99); MONOCYTES % (AUTO) 7.3 % (1.0-10.0); NEUTROPHILS % (AUTO) 76.8 % (45.0-75.0); PLATELET COUNT 340 K/UL (150-450); RED BLOOD COUNT 4.69 M/UL (4.70-6.10); RED CELL DISTRIBUTION WIDTH 12.8 % (11.6-14.8); WHITE BLOOD COUNT 7.8 K/UL (4.8-10.8)
[2019-08-16 00:44] LABS: ANION GAP 11 mmol/L (5-15); BLOOD UREA NITROGEN 30 mg/dL (7-18); CALCIUM 8.8 MG/DL (8.5-10.1); CARBON DIOXIDE 28 MMOL/L (21-32); CHLORIDE 98 MMOL/L (98-107); CREATININE 1.7 MG/DL (0.55-1.30); POTASSIUM 4.2 MMOL/L (3.5-5.1); SODIUM 137 MMOL/L (136-145)
--- NOTE | 2019-08-16 00:55 | Diagnostic Imaging Report ---
EXAM: XR Chest, 1 View CLINICAL HISTORY: CP TECHNIQUE: Frontal view of the chest. COMPARISON: 08 16 19 IMPRESSION: Cardiomegaly. Worsened pulmonary edema. COPD.
[2019-08-16 00:58] LABS: ALANINE AMINOTRANSFERASE 47 U/L (12-78); ALBUMIN 3.4 G/DL (3.4-5.0); ALBUMIN/GLOBULIN RATIO 0.8 (1.0-2.7); ALKALINE PHOSPHATASE 87 U/L (46-116); ASPARTATE AMINO TRANSFERASE 38 U/L (15-37); CKMB 7.9 NG/ML (0.0-3.6); CREATINE KINASE 264 U/L (26-308)
[2019-08-16] MEDS ORDERED: Albuterol ud Inhalation HHN ONE (01:30)
--- NOTE | 2019-08-16 01:31 | NUR ---
ED Nurse Note: Patient tolerated medication administration well. Urinal left at bedside for anticipated voiding.
--- NOTE | 2019-08-16 02:35 | NUR ---
ED Nurse Note: Patient voided multiple times, 900cc in total. Urine appears yellow, clear and has no odor. Will continue to monitor.
--- NOTE | 2019-08-16 03:35 | NUR ---
ED Nurse Note: Patient sleeping, with no s/s of acute distress, cardiac exercise physiologist disconnected due to patient preferred positioning in bed. Will continue to monitor.
[2019-08-16] MEDS ORDERED: ALBUTEROL SULF8.5 GM INH (03:55)
[2019-08-16 04:42] VITALS: BP 159/88
--- NOTE | 2019-08-16 04:42 | NUR ---
ED Nurse Note: Patient cleared for discharge by ERMD. Patient verbalized understanding of discharge instructions. Patient's Iv was removed, ID band removed. Patient is A&Ox4, ambulatory with steady gait and has no s/s of acute distress. Patient departed with all belongings to catch the bus to his destination.
--- NOTE | 2019-08-18 11:42 | Cardiology Report ---
APPROVED REPORT EKG Measurement Heart [id number] Normal sinus rhythm Possible Left atrial enlargement Left axis deviation Left bundle branch block Abnormal ECG
== END 2019-08-16 04:42 | disposition home or self-care (01) ==
LOC: EMR 08-16 00:09
DX: J44.9 Chronic obstructive pulmonary disease, unspecified (principal); I11.0 Hypertensive heart disease with heart failure; I50.9 Heart failure, unspecified; Z88.0 Allergy status to penicillin; F15.10 Other stimulant abuse, uncomplicated; F12.10 Cannabis abuse, uncomplicated
CPT/HCPCS: 36415; 71045; 80053; 80307; 82550; 82553; 83690; 83880; 84484; 85025; 93005; 94640; 96374; J1940; Z7502; 99284

== ENCOUNTER 2019-08-20 22:29 | Emergency (ER) | payer MEDICAID ==
[~2019-08-20] VITALS: Ht 180.3 cm; Wt 72.6 kg
[~2019-08-20 22:29] MED LIST changes: +ALBUTEROL SULF8.5 GM INH
--- NOTE | 2019-08-20 22:45 | NUR ---
ED Nurse Note: Recieved pt on fgurney awake, alert anad oriented x 4, pt moaning and groanina, here with c/o bilat knee pain with bilat foot swelling at 8/10 which hurts more when walking, pt denies cp, has mild sob on exertion, hx of copd, no fevers, diarrhea or any other discomforts, pt gowned and placed on cardiac monitoring, will resume care as ordered and continue to closely monitor.
[2019-08-20] MEDS ORDERED: HYDROmorphone 1mg/ml Carpuject IVP ONE (23:15)
[2019-08-20] MEDS ORDERED: Omnipaque-300 100ml vial INJ PRN (23:15)
[2019-08-20 23:34] LABS: BASOPHILS % (AUTO) 0.5 % (0.0-2.0); EOSINOPHILS % (AUTO) 3.1 % (0.0-3.0); HEMATOCRIT 35.9 % (42.0-52.0); HEMOGLOBIN 11.6 G/DL (14.2-18.0); MEAN CORPUSCULAR VOLUME 86 FL (80-99); MONOCYTES % (AUTO) 9.2 % (1.0-10.0); NEUTROPHILS % (AUTO) 72.2 % (45.0-75.0); PLATELET COUNT 292 K/UL (150-450); RED BLOOD COUNT 4.19 M/UL (4.70-6.10); RED CELL DISTRIBUTION WIDTH 13.2 % (11.6-14.8); WHITE BLOOD COUNT 7.7 K/UL (4.8-10.8)
[2019-08-20 23:35] VITALS: BP 136/91
[2019-08-20 23:47] LABS: ANION GAP 8 mmol/L (5-15); BLOOD UREA NITROGEN 30 mg/dL (7-18); CALCIUM 9.2 MG/DL (8.5-10.1); CARBON DIOXIDE 27 MMOL/L (21-32); CHLORIDE 103 MMOL/L (98-107); CREATININE 1.8 MG/DL (0.55-1.30); SODIUM 138 MMOL/L (136-145)
[2019-08-20 23:57] LABS: ALANINE AMINOTRANSFERASE 40 U/L (12-78); ALBUMIN 2.9 G/DL (3.4-5.0); ALBUMIN/GLOBULIN RATIO 0.8 (1.0-2.7); ALKALINE PHOSPHATASE 77 U/L (46-116); ASPARTATE AMINO TRANSFERASE 23 U/L (15-37); BILIRUBIN,TOTAL 0.5 MG/DL (0.2-1.0); CREATINE KINASE 120 U/L (26-308)
--- NOTE | 2019-08-21 00:07 | Emergency Room Report ---
History of Present Illness General Chief Complaint: Pain Source: Patient Present Illness HPI 58-year-old male history of polysubstance abuse history of CHF presents with bilateral leg pain, patient reports achy pain worse with walking, patient is tired of walking, severity is mild, intermittent, worsened with movement alleviated with rest, no fever no chills no chest pain or shortness of breath, he states the pain started after utilizing some injection drugs. Allergies: Coded Allergies: PENICILLINS (Verified Allergy, Unknown, 06/30/19) Patient History Past Medical History: see triage record Social History: Reports: drug use Reviewed Nursing Documentation: PMH: Agreed; PSxH: Agreed Nursing Documentation-PMH Past Medical History: No History, Except For Hx Cardiac Problems: Yes - CHF Hx Hypertension: Yes Review of Systems All Other Systems: negative except mentioned in HPI Physical Exam Vital Signs Date Time Temp Pulse Resp B/P (MAP) Pulse Ox O2 Delivery O2 Flow Rate FiO2 08/20/19 22:36 98.8 112 19 136/96 (109) 100 Room Air Sp02 EP Interpretation: reviewed, normal General Appearance: well appearing, no apparent distress, alert Head: normocephalic, atraumatic Eyes: bilateral eye PERRL, bilateral eye EOMI ENT: uvula midline, moist mucus membranes Neck: supple, thyroid normal, supple/symm/no masses Respiratory: lungs clear, no respiratory distress, no retraction, no accessory muscle use Cardiovascular #1: normal peripheral pulses, no edema, no gallop, no murmur, tachycardia Gastrointestinal: non tender, soft, no guarding, no rebound Musculoskeletal: normal inspection, other - Bilateral lower extremity: 2+ PT DP , no edema, 2+ popliteal pulses bilaterally, cap refill less than 3 seconds, no tenderness from the cath fires EHL, 5 out of 5 plantar dorsiflexion of the ankle , 5 out of 5 strength knee extension flexion Neurologic: alert, oriented x3 Psychiatric: mood/affect normal Skin: no rash, warm/dry Medical Decision Making Diagnostic Impression: Primary Impression: Leg pain, bilateral ER Course 58-year-old male presents with bilateral leg pain, neurovascular exam unremarkable differential diagnosis includes claudication, pain seeking behavior , clot Patient with no asymmetric swelling, no calf tenderness, low suspicion for clot , low suspicion for claudication patient was seen Walking down the [place] without any issues, patient is requesting pain medication stronger than morphine low suspicion for acute pathology CT scan negative for acute processes Reevaluation 1:31 AM, patient was seen ambulating down the [place] without any issues Laboratory Tests Test 08/20/19 22:30 08/20/19 23:15 Urine Opiates Screen Negative (NEGATIVE) Urine Barbiturates Screen Negative (NEGATIVE) Phencyclidine (PCP) Screen Negative (NEGATIVE) Urine Amphetamines Screen Negative (NEGATIVE) Urine Benzodiazepines Screen Negative (NEGATIVE) Urine Cocaine Screen Negative (NEGATIVE) Urine Marijuana (THC) Screen Negative (NEGATIVE) White Blood Count 7.7 K/UL (4.8-10.8) Red Blood Count 4.19 M/UL (4.70-6.10) L Hemoglobin 11.6 G/DL (14.2-18.0) L Hematocrit 35.9 % (42.0-52.0) L Mean Corpuscular Volume 86 FL (80-99) Mean Corpuscular Hemoglobin 27.6 PG (27.0-31.0) Mean Corpuscular Hemoglobin Concent 32.2 G/DL (32.0-36.0) Red Cell Distribution Width 13.2 % (11.6-14.8) Platelet Count 292 K/UL (150-450) Mean Platelet Volume 4.9 FL (6.5-10.1) L Neutrophils (%) (Auto) 72.2 % (45.0-75.0) Lymphocytes (%) (Auto) 15.0 % (20.0-45.0) L Monocytes (%) (Auto) 9.2 % (1.0-10.0) Eosinophils (%) (Auto) 3.1 % (0.0-3.0) H Basophils (%) (Auto) 0.5 % (0.0-2.0) Prothrombin Time 10.4 SEC (9.30-11.50) Prothrombin Time INR 1.0 (0.9-1.1) PTT 23 SEC (23-33) Sodium Level 138 MMOL/L (136-145) Potassium Level 4.0 MMOL/L (3.5-5.1) Chloride Level 103 MMOL/L (98-107) Carbon Dioxide Level 27 MMOL/L (21-32) Anion Gap 8 mmol/L (5-15) Blood Urea Nitrogen 30 mg/dL (7-18) H Creatinine 1.8 MG/DL (0.55-1.30) H Estimate Glomerular Filtration Rate 38.9 mL/min (>60) Glucose Level 129 MG/DL (74-106) H Calcium Level 9.2 MG/DL (8.5-10.1) Total Bilirubin 0.5 MG/DL (0.2-1.0) Aspartate Amino Transferase (AST) 23 U/L (15-37) Alanine Aminotransferase (ALT) 40 U/L (12-78) Alkaline Phosphatase 77 U/L (46-116) Total Creatine Kinase 120 U/L (26-308) Troponin I 0.000 ng/mL (0.000-0.056) Pro-B-Type Natriuretic Peptide 5109 pg/mL (0-125) H Total Protein 6.6 G/DL (6.4-8.2) Albumin 2.9 G/DL (3.4-5.0) L Globulin 3.7 g/dL Albumin/Globulin Ratio 0.8 (1.0-2.7) L Lipase 237 U/L (73-393) EKG Diagnostic Results EKG Time: 23:41 EP Interpretation: sinustachycardia, rate 104, QTc 499, no acute ST elevations , left axis truong Rhythm Strip Diag. Results Rhythm Strip Time: 01:43 EP Interpretation: yes Rate: 100 Rhythm: NSR, no PVC's, no ectopy Chest X-Ray Diagnostic Results Chest X-Ray Diagnostic Results : Chest X-Ray Ordered: Yes # of Views/Limited/Complete: 1 View Indication: Other - Preop Interpretation: no acute cardiopulmonary disease, other - Enlarged heart Impression: Other - Enlarged heart Electronically Signed by: Evan Chino MD CT/MRI/US Diagnostic Results CT/MRI/US Diagnostic Results : Impression Preliminary Findings Only See Final Report For Complete Findings CT ABDOMEN & PELVIS With Contrast: Normal appendix. No diverticulitis. No free air or fluid collections. No bowel obstruction. Increased fecal burden. Distended stomach with retained gastric contents. Contracted gallbladder. No definite radiopaque gallstones. No pancreatitis or pyelonephritis. No hydronephrosis. Normal caliber abdominal aorta with atherosclerotic disease. Distended bladder. Cardiomegaly with dependent vascular congestion. Trace bilateral pleural effusions. Degenerative changes in lumbar spine. Radiologist: Nicolas Jimenez M.D. Study ready at 00:56 and initial results transmitted at 01:42 Last Vital Signs Date Time Temp Pulse Resp B/P (MAP) Pulse Ox O2 Delivery O2 Flow Rate FiO2 08/20/19 22:36 98.8 112 19 136/96 (109) 100 Room Air Disposition: HOME, SELF-CARE Condition: Stable Scripts Naproxen* (NAPROSYN*) 250 Mg Tablet 250 MG ORAL BID PRN for For Pain, #20 TAB 0 Refills Prov: Evan Chino MD 08/21/19 Referrals: NON PHYSICIAN (PCP) [facility] Patient Instructions: Muscle Pain, Adult, Musculoskeletal Pain Additional Instructions: The patient was provided with discharge instructions, notified to follow-up with a primary care doctor and or specialist in the next 24-48 hours, and to return to the ED if they have worsening of their symptoms. Please note that this report is being documented using [employer] technology. This can lead to erroneous entry secondary to incorrect interpretation by the dictating instrument. Evan Chino MD Aug 21, 2019 00:07
--- NOTE | 2019-08-21 00:15 | NUR ---
ED Nurse Note: PT RETURNED FROM IMAGING, RESTING QUIETLY, MEDS GIVEN FOR PAIN EFFECTIVE, PT PLACED BACK TO CARDIAC MONITORING, DENIES CP, MILD SOB REMAINS, O2 SAT=99% ON RA, IV SITE PATENT, WILL CONTINUE TO CLOSELY MONITOR WHILE WAITING FOR RESULTS.
--- NOTE | 2019-08-21 01:43 | Diagnostic Imaging Report ---
Indication: Abdominal pain Technique: Continuous helical transaxial imaging of the abdomen and pelvis was obtained from the lung bases to the pubic symphysis during intravenous contrast administration. Coronal 2-D reformats were also obtained. Study obtained in a Siemens sensation [address] Automatic Exposure Control was utilized. Total Dose length Product (DLP): [address] Dose Index Volume (CTDIvol): 18.7 mGy Comparison: None Findings: Trace bilateral pleural effusions are present with some mild streaky densities likely atelectasis. There is artifact limiting evaluation on this study. The technical quality of the exam is poor. Kidneys are noted during arterial phase and grossly unremarkable. There is no hydronephrosis. Aorta is calcified. Gallbladder is contracted. No obvious biliary ductal dilatation identified. No evidence of a small bowel obstruction. Few diverticula noted in the sigmoid colon. The appendix is normal. There is narrowing of intervertebral discs and accompanying endplate osteophyte formation. Hypertrophied facet joints also demonstrated.. IMPRESSION: Limited evaluation due to artifact and general poor technique. No acute findings in the abdomen or pelvis identified. Normal appendix. Contracted gallbladder not evaluated well. Degenerative changes of the spine The CT scanner at [facility] is accredited by the [employer] and the scans are performed using dose optimization techniques as appropriate to a performed exam including Automatic Exposure control.
[2019-08-21] MEDS ORDERED: NAPROXEN250 MG ORAL (01:51)
[2019-08-21] MEDS ORDERED: oxyCODONE HCL/Acetaminophen 5/325mg ORAL ONE (02:00)
--- NOTE | 2019-08-21 02:40 | NUR ---
ER DISCHARGE NOTE: Patient is cleared to be discharged per ERMD, pt is aox4, on room air, with stable vital signs. pt was given dc and prescription instructions, pt was able to verbalize understanding, pt id band and iv site removed without complications. pt is able to ambulate with steady gait. pt took all belongings. pt given food and fluids, ate all and tolerated well, pt friend arrived for transport, pt denies homelessness, nad noted during d/c to home.
[2019-08-21 02:45] VITALS: BP 136/91
--- NOTE | 2019-08-21 10:45 | Diagnostic Imaging Report ---
Indication: Chest pain Comparison: 08/08/2019 A single view chest radiograph was obtained. Findings: No definite infiltrate or pulmonary vascular congestion identified. The heart is enlarged. The aorta is mildly enlarged consistent with atherosclerotic vascular disease. There is an old rib fracture on the right. The bones are osteopenic. Impression: No acute disease
--- NOTE | 2019-08-30 17:20 | Cardiology Report ---
APPROVED REPORT EKG Measurement Heart [id number] [place] 174P80 [id number] Sinus tachycardia Left bundle branch block Abnormal ECG
[2019-09-03] MEDS ORDERED: FUROSEMIDE40 MG ORAL (19:29)
== END 2019-08-21 02:45 | disposition home or self-care (01) ==
LOC: EMR 23:01
DX: M79.605 Pain in left leg (principal); M79.604 Pain in right leg; I11.0 Hypertensive heart disease with heart failure; I50.9 Heart failure, unspecified; Z88.0 Allergy status to penicillin; R07.9 Chest pain, unspecified
CPT/HCPCS: 36415; 71045; 74177; 80053; 80307; 82550; 83690; 83880; 84484; 85025; 85610; 85730; 93005; 96361; 96374; J1170; Q9967; Z7502; 99284

== ENCOUNTER 2019-08-22 01:18 | Emergency (ER) | payer MEDICAID ==
[~2019-08-22] VITALS: Ht 170.2 cm; Wt 68.0 kg
[~2019-08-22 01:18] MED LIST changes: +NAPROXEN250 MG ORAL
[2019-08-22 01:30] VITALS: BP 140/95
--- NOTE | 2019-08-22 01:30 | NUR ---
ED Nurse Note: pt walked in to ED C/O SOB since noon time. pt stated he has taken lasix ealier today. Pt current sp02 is 97% in room air, however noted with using accesory muscle to breath. pt was here a day ago for the same reason.
--- NOTE | 2019-08-22 01:37 | Emergency Room Report ---
History of Present Illness General Chief Complaint: Dyspnea/Respdistress Source: Patient, Medical Record Present Illness HPI This is a 58-year-old male with history of COPD and CHF. He also has history of methamphetamine abuse but says been clean for 6 days. He presents with chief complaint of shortness of breath and chest pain. This is a chronic problem. He was just here the other day for similar complaint. Worse with exertion. Worse with coughing. Worse with laying flat. Has not filled prescription for albuterol. Said is been taking his Lasix. No fever chills. No radiation of any pain. Denies any nausea vomiting or diarrhea. Allergies: Coded Allergies: PENICILLINS (Verified Allergy, Unknown, 06/30/19) Patient History Past Medical History: see triage record, old chart reviewed, HTN, CHF, COPD Past Surgical History: other Pertinent Family History: none Social History: Reports: smoking, drug use Immunizations: other Reviewed Nursing Documentation: PMH: Agreed; PSxH: Agreed Nursing Documentation-PMH Hx Cardiac Problems: Yes - CHF Hx Hypertension: Yes Review of Systems Eye: Denies: eye pain, blurred vision ENT: Denies: ear pain, nose congestion, throat swelling Respiratory: Reports: cough, shortness of breath Cardiovascular: Reports: chest pain; Denies: palpitations Gastrointestinal: Denies: abdominal pain, diarrhea, nausea, vomiting Musculoskeletal: Denies: back pain, joint pain Skin: Denies: rash Neurological: Denies: headache, numbness Endocrine: Denies: increased thirst, increased urine Hematologic/Lymphatic: Denies: easy bruising All Other Systems: negative except mentioned in HPI Physical Exam Vital Signs Date Time Temp Pulse Resp B/P (MAP) Pulse Ox O2 Delivery O2 Flow Rate FiO2 08/22/19 01:25 97.2 102 24 139/102 (114) 100 Room Air Vitals normal Sp02 EP Interpretation: reviewed, normal General Appearance: no apparent distress, alert, thin Head: normocephalic, atraumatic Eyes: bilateral eye PERRL, bilateral eye EOMI ENT: hearing grossly normal, normal pharynx Neck: full range of motion, supple, no meningismus Respiratory: chest non-tender, decreased breath sounds, accessory muscle use, wheezing Cardiovascular #1: regular rate, rhythm, no murmur Gastrointestinal: normal bowel sounds, non tender, no mass, no organomegaly, no bruit, non-distended Musculoskeletal: back normal, gait/station normal, normal range of motion Psychiatric: mood/affect normal Medical Decision Making Diagnostic Impression: Primary Impression: COPD with exacerbation Additional Impressions: CHF (congestive heart failure) Qualified Codes: I50.9 - Heart failure, unspecified Chest pain Qualified Codes: R07.9 - Chest pain, unspecified ER Course Patient presents with shortness of breath. He has wheezing that resolved with breathing treatment. He is not using any inhaler or take any steroid. He is taking Lasix. Lungs no evidence of any rales. Chest x-ray is unremarkable. He does have cardiomegaly. His BNP is better than from before. I suspect this is a chronic cardiomyopathy secondary to drug abuse. No evidence of overt fluid overloaded. Patient felt better after breathing treatment. He wanted to leave AMA because he understand the risk of leaving AGAINST MEDICAL ADVICE. This was not limited to disability, heart attack, to name a few. EKG Diagnostic Results Rate: normal Rhythm: NSR ST Segments: other - LBBB Rhythm Strip Diag. Results EP Interpretation: yes Rate: 98 Rhythm: NSR, no PVC's, no ectopy Chest X-Ray Diagnostic Results Chest X-Ray Diagnostic Results : Chest X-Ray Ordered: Yes # of Views/Limited/Complete: 1 View Indication: Shortness of Breath EP Interpretation: Yes Interpretation: no consolidation, no effusion, no pneumothorax, other - cardiomegaly Impression: No acute disease Electronically Signed by: Chase Bustamante MD Last Vital Signs Date Time Temp Pulse Resp B/P (MAP) Pulse Ox O2 Delivery O2 Flow Rate FiO2 08/22/19 01:25 97.2 102 24 139/102 (114) 100 Room Air Status: improved Disposition: AGAINST MEDICAL ADVICE Condition: Improved Referrals: NON PHYSICIAN (PCP) Chase Bustamante MD Aug 22, 2019 01:37
[2019-08-22] MEDS ORDERED: Ipratropium 0.02% Inh Soln 2.5ml UD HHN ONE (01:45)
[2019-08-22] MEDS ORDERED: Albuterol ud Inhalation HHN ONE (01:45)
[2019-08-22] MEDS ORDERED: Solu-MEDROL 125mg Inj IVP ONE (01:45)
--- NOTE | 2019-08-22 01:49 | NUR ---
ED Nurse Note: urine and blood sample sent down to lab
[2019-08-22 02:02] LABS: BASOPHILS % (AUTO) 0.9 % (0.0-2.0); EOSINOPHILS % (AUTO) 4.4 % (0.0-3.0); HEMATOCRIT 35.5 % (42.0-52.0); HEMOGLOBIN 11.5 G/DL (14.2-18.0); LYMPHOCYTES % (AUTO) 17.1 % (20.0-45.0); MEAN CORPUSCULAR VOLUME 86 FL (80-99); MONOCYTES % (AUTO) 9.9 % (1.0-10.0); NEUTROPHILS % (AUTO) 67.6 % (45.0-75.0); PLATELET COUNT 280 K/UL (150-450); RED BLOOD COUNT 4.14 M/UL (4.70-6.10); RED CELL DISTRIBUTION WIDTH 13.5 % (11.6-14.8)
[2019-08-22 02:08] LABS: APPEARANCE,URINE CLEAR; BILIRUBIN, URINE NEGATIVE (NEGATIVE); GLUCOSE, URINE (UA) NEGATIVE (NEGATIVE); KETONES,URINE NEGATIVE (NEGATIVE); LEUKOCYTE ESTERASE ,URINE NEGATIVE (NEGATIVE); NITRITE,URINE NEGATIVE (NEGATIVE); PH,URINE 5 (4.5-8.0); PROTEIN,URINE 3+ (NEGATIVE); UROBILINOGEN,URINE NORMAL MG/DL (0.0-1.0)
[2019-08-22 02:18] LABS: ANION GAP 7 mmol/L (5-15); BLOOD UREA NITROGEN 30 mg/dL (7-18); CALCIUM 8.9 MG/DL (8.5-10.1); CARBON DIOXIDE 27 MMOL/L (21-32); CHLORIDE 103 MMOL/L (98-107); CREATININE 1.5 MG/DL (0.55-1.30); SODIUM 137 MMOL/L (136-145)
[2019-08-22 02:32] LABS: COLOR,URINE YELLOW
[2019-08-22 02:33] LABS: ALANINE AMINOTRANSFERASE 48 U/L (12-78); ALBUMIN/GLOBULIN RATIO 0.8 (1.0-2.7); ALKALINE PHOSPHATASE 78 U/L (46-116); ASPARTATE AMINO TRANSFERASE 27 U/L (15-37); BILIRUBIN,TOTAL 0.5 MG/DL (0.2-1.0); CKMB 5.2 NG/ML (0.0-3.6); CREATINE KINASE 106 U/L (26-308)
[2019-08-22 02:50] VITALS: BP 132/95
--- NOTE | 2019-08-22 02:50 | NUR ---
AMA: SEE AMA FORM. IV site and wrist b and removed.
--- NOTE | 2019-08-22 11:47 | Diagnostic Imaging Report ---
Indication: Dyspnea Comparison: 08/20/2019 A single view chest radiograph was obtained. Findings: No definite infiltrate or pulmonary vascular congestion identified. The heart is enlarged. The aorta is mildly enlarged consistent with atherosclerotic vascular disease. The bones are osteopenic. Old rib fractures on the right again noted. Impression: No acute disease
--- NOTE | 2019-09-03 16:00 | Cardiology Report ---
APPROVED REPORT EKG Measurement Heart [id number] [place] [id number] [id number] Normal sinus rhythm Possible Left atrial enlargement Left axis deviation Left bundle branch block Abnormal ECG
[2019-09-03] MEDS ORDERED: FUROSEMIDE40 MG ORAL (19:29)
== END 2019-08-22 02:50 | disposition left against medical advice (07) ==
LOC: EMR 01:34
DX: J44.1 Chronic obstructive pulmonary disease with (acute) exacerbation (principal); I50.9 Heart failure, unspecified; I11.0 Hypertensive heart disease with heart failure; R07.9 Chest pain, unspecified; I44.7 Left bundle-branch block, unspecified; F17.200 Nicotine dependence, unspecified, uncomplicated; Z88.0 Allergy status to penicillin; F15.10 Other stimulant abuse, uncomplicated
CPT/HCPCS: 36415; 71045; 80053; 80307; 81003; 82550; 82553; 83880; 84484; 85025; 93005; 94640; 96374; J2930; Z7502; 99284

== ENCOUNTER 2019-09-10 16:42 | Emergency (ER) | payer MEDICAID ==
[~2019-09-10] VITALS: Ht 180.3 cm; Wt 74.8 kg
--- NOTE | 2019-09-10 16:56 | NUR ---
ED Nurse Note: Pt walked in ED c/o chest tightess and SOB since last night. Pt states he ran out of his BP and CHF medications. Pt aox4, VSS, on room air, no respiratory distress noted. Placed in hospital gown and security monitor.
--- NOTE | 2019-09-10 16:58 | NUR ---
ED Nurse Note: EKG at bedside
[2019-09-10] MEDS ORDERED: LISINOPRIL10 MG ORAL (17:23)
[2019-09-10] MEDS ORDERED: CARVEDILOL3.125 MG ORAL (17:23)
[2019-09-10] MEDS ORDERED: FUROSEMIDE40 MG ORAL (17:23)
[2019-09-10 17:27] VITALS: BP 108/77
[2019-09-10] MEDS ORDERED: Furosemide 40mg tab ORAL ONE (17:30)
--- NOTE | 2019-09-10 18:42 | Emergency Room Report ---
History of Present Illness General Chief Complaint: Dyspnea/Respdistress Source: Patient Present Illness HPI 58-year-old male presents ED for evaluation. States he is here for medication refill. History of CHF and COPD. Ran out of his BP meds and Lasix 2 days ago. Feels that there is "fluid" in his lungs. Denies shortness of breath. Denies chest pain. Denies leg swelling. No other aggravating relieving factors. Denies any other associated symptoms Allergies: Coded Allergies: PENICILLINS (Verified Allergy, Unknown, 06/30/19) Patient History Past Medical History: CHF, COPD Past Surgical History: none Pertinent Family History: none Social History: Denies: smoking, alcohol use, drug use Immunizations: UTD Reviewed Nursing Documentation: PMH: Agreed; PSxH: Agreed Nursing Documentation-PMH Past Medical History: No History, Except For Hx Cardiac Problems: Yes - CHF Hx Hypertension: Yes Review of Systems All Other Systems: negative except mentioned in HPI Physical Exam Vital Signs Date Time Temp Pulse Resp B/P (MAP) Pulse Ox O2 Delivery O2 Flow Rate FiO2 09/10/19 16:46 98.8 85 17 116/77 (90) 95 Room Air Sp02 EP Interpretation: reviewed, normal General Appearance: no apparent distress, alert, GCS 15, non-toxic Head: normocephalic, atraumatic Eyes: bilateral eye normal inspection, bilateral eye PERRL ENT: hearing grossly normal, normal pharynx, no angioedema, normal voice Neck: full range of motion, supple/symm/no masses Respiratory: chest non-tender, lungs clear, normal breath sounds, speaking full sentences Cardiovascular #1: regular rate, rhythm, no edema Cardiovascular #2: 2+ carotid (R), 2+ carotid (L), 2+ radial (R), 2+ radial (L) , 2+ dorsalis pedis (R), 2+ dorsalis pedis (L) Gastrointestinal: normal bowel sounds, non tender, soft, non-distended, no guarding, no rebound Rectal: deferred Genitourinary: normal inspection, no CVA tenderness Musculoskeletal: back normal, gait/station normal, normal range of motion, non- tender Neurologic: alert, oriented x3, responsive, motor strength/tone normal, sensory intact, speech normal Psychiatric: judgement/insight normal, memory normal, mood/affect normal, no suicidal/homicidal ideation Reflexes: 3+ bicep (R), 3+ bicep (L), 3+ tricep (R), 3+ tricep (L), 3+ knee (R) , 3+ knee (L) Lymphatic: no adenopathy Medical Decision Making Diagnostic Impression: Primary Impression: Medication refill Additional Impression: History of congestive heart failure ER Course 58-year-old male presents to ED refill of hismedication. History of hypertension and CHF hospital course: After initial history, physical exam reveals middle-aged male in no acute distress. Lungs clear. No leg swelling. Remainder of exam unremarkable. BP within normal limits. O2 sat normal. Patient has been seen here multiple times for similar presentation. Has had work-ups in the past which were unremarkable. I see no reason to repeat work- up at this time given patient is asymptomatic. Given Lasix in ED. Will discharge home with a refill of his Lasix, carvedilol and lisinopril. States that he recently got a PMD. Diagnosis-encounter for medication refill, h/o CHF Stable and discharged to home with prescription for lasix, carvedilol, lisinopril. Followup with PMD. Return to ED if symptoms recur or worsen Last Vital Signs Date Time Temp Pulse Resp B/P (MAP) Pulse Ox O2 Delivery O2 Flow Rate FiO2 09/10/19 17:27 89 20 Room Air 09/10/19 17:27 98.1 108/77 100 Status: improved Disposition: HOME, SELF-CARE Condition: Stable Scripts Carvedilol* (CARVEDILOL*) 3.125 Mg Tablet 3.125 MG ORAL EVERY 12 HOURS for 30 Days, TAB Prov: Randall Redman MD 09/10/19 Lisinopril* (LISINOPRIL*) 10 Mg Tablet 10 MG ORAL DAILY, #30 TAB Prov: Randall Redman MD 09/10/19 Furosemide* (LASIX*) 40 Mg Tablet 40 MG ORAL DAILY, #30 TAB Prov: Randall Redman MD 09/10/19 Referrals: NON PHYSICIAN (PCP) Patient Instructions: Heart Failure, [id number] Randall Redman MD Sep 10, 2019 18:41
== END 2019-09-10 17:30 | disposition home or self-care (01) ==
LOC: EMR 17:10
DX: I11.0 Hypertensive heart disease with heart failure (principal); I50.9 Heart failure, unspecified; Z76.0 Encounter for issue of repeat prescription; Z88.0 Allergy status to penicillin; J44.9 Chronic obstructive pulmonary disease, unspecified
CPT/HCPCS: 99282

== ENCOUNTER 2019-10-27 12:23 | Emergency (ER) | payer MEDICAID ==
[~2019-10-27] VITALS: Ht 180.3 cm; Wt 72.6 kg
[~2019-10-27 12:23] MED LIST changes: +CARVEDILOL3.125 MG ORAL; +LISINOPRIL10 MG ORAL
--- NOTE | 2019-10-27 12:38 | NUR ---
ED Nurse Note: Patient walked into ED from the street for his blood pressure medication refill: lisinopril, coreg, and lasix per patient. Patient states he ran out of these medication a week ago. Unable to go to PMD at this time.
--- NOTE | 2019-10-27 12:42 | NUR ---
ED Nurse Note: PA at bedside
[2019-10-27] MEDS ORDERED: Lisinopril 10mg tab ORAL ONE (12:45)
[2019-10-27] MEDS ORDERED: Furosemide 40mg tab ORAL ONE (12:45)
[2019-10-27 12:49] VITALS: BP 132/98
[2019-10-27] MEDS ORDERED: CARVEDILOL3.125 MG ORAL (13:03)
[2019-10-27] MEDS ORDERED: FUROSEMIDE40 MG ORAL (13:03)
[2019-10-27] MEDS ORDERED: LISINOPRIL10 MG ORAL (13:03)
--- NOTE | 2019-10-27 13:03 | Emergency Room Report ---
History of Present Illness General Chief Complaint: Medication Refill Source: Patient Present Illness HPI 59-year-old male with history of hypertension and CHF here requesting medication refill for his carvedilol, Lasix, and lisinopril. Patient has been to [facility] before for same concern. Patient refuses to be tested, refuses to have any EKG or blood drawn. Reports that since [place] the [address] it is really hard for him to follow-up with her primary care physician. At this time he complains of minor weakness as he reports that he has not taken any of his medication in the past week. Denies chest pain, shortness of breath, palpitation, leg swelling. Vital signs are within normal limits and patient appears to be stable. Patient also is requesting food. Allergies: Coded Allergies: PENICILLINS (Verified Allergy, Unknown, 06/30/19) Patient History Past Medical History: see triage record Past Surgical History: unable to obtain Pertinent Family History: none Immunizations: UTD Reviewed Nursing Documentation: PMH: Agreed; PSxH: Agreed Nursing Documentation-PMH Past Medical History: No History, Except For Hx Cardiac Problems: Yes - CHF Hx Hypertension: Yes Review of Systems All Other Systems: negative except mentioned in HPI Physical Exam Vital Signs Date Time Temp Pulse Resp B/P (MAP) Pulse Ox O2 Delivery O2 Flow Rate FiO2 10/27/19 12:28 97.3 90 17 132/98 (109) 98 Room Air Sp02 EP Interpretation: reviewed, normal General Appearance: no apparent distress, alert, GCS 15, non-toxic Head: normocephalic, atraumatic Eyes: bilateral eye normal inspection, bilateral eye PERRL ENT: hearing grossly normal, normal pharynx, no angioedema, normal voice Neck: full range of motion, supple/symm/no masses Respiratory: chest non-tender, lungs clear, normal breath sounds, no rhonchi, no retraction, no wheezing, speaking full sentences Cardiovascular #1: regular rate, rhythm, no edema, no murmur Cardiovascular #2: 2+ carotid (R), 2+ carotid (L), 2+ radial (R), 2+ radial (L) , 2+ dorsalis pedis (R), 2+ dorsalis pedis (L) Gastrointestinal: normal bowel sounds, non tender, soft, non-distended, no guarding, no rebound Rectal: deferred Genitourinary: no CVA tenderness Musculoskeletal: back normal, digits/nails normal, no calf tenderness Neurologic: alert, motor strength/tone normal, oriented x3, sensory intact, responsive, speech normal Psychiatric: judgement/insight normal, memory normal, mood/affect normal, no suicidal/homicidal ideation Skin: no rash Lymphatic: no adenopathy Medical Decision Making PA Attestation All diagnoses and treatment plans were reviewed and discussed with my supervising physician Dr. Smalls Homeless Attestation The treating physician has assessed and agrees that patient is medically stable for outpatient disposition Diagnostic Impression: Primary Impression: Encounter for medication refill ER Course 59-year-old male with history of hypertension and CHF here requesting medication refill for his carvedilol, Lasix, and lisinopril. Patient has been to [place] [facility] before for same concern. Patient refuses to be tested, refuses to have any EKG or blood drawn. Reports that [place] it is really hard for him to follow-up with her primary care physician. At this time he complains of minor weakness as he reports that he has not taken any of his medication in the past week. Denies chest pain, shortness of breath, palpitation, leg swelling. Vital signs are within normal limits and patient appears to be stable. Patient also is requesting food. Ddx considered but are not limited to: CHF, [place], hypertension urgency, hypertension emergency, edema Vital signs: are WNL, pt. is afebrile H&PE are most consistent with medication refill ORDERS: Lasix, lisinopril, carvedilol ED INTERVENTIONS: Lasix, lisinopril, carvedilol DISCHARGE: At this time pt. is stable for d/c to home. Will provide printed patient care instructions, and any necessary prescriptions. Care plan and follow up instructions have been discussed with the patient prior to discharge. Since patient refused to have any blood work done I advised patient to follow- up with her primary care provider at this time patient is stable to leave and has a stable vital signs Last Vital Signs Date Time Temp Pulse Resp B/P (MAP) Pulse Ox O2 Delivery O2 Flow Rate FiO2 10/27/19 12:59 98 132/98 10/27/19 12:49 97.3 17 98 Room Air Disposition: HOME, SELF-CARE Condition: Stable Scripts Carvedilol* (CARVEDILOL*) 3.125 Mg Tablet 3.125 MG ORAL EVERY 12 HOURS for 30 Days, TAB Prov: Ashleigh Schofield 10/27/19 Lisinopril* (LISINOPRIL*) 10 Mg Tablet 10 MG ORAL DAILY, #30 TAB Prov: Ashleigh Schofield 10/27/19 Furosemide* (LASIX*) 40 Mg Tablet 40 MG ORAL DAILY, #30 TAB Prov: Ashleigh Schofield 10/27/19 Patient Instructions: Medicine Refill at the Emergency Department Additional Instructions: Follow-up with your primary care provider as you need to be referred to a civilian jail officer, since you refused to get any types of blood work or EKG done in the emergency room today. If worsening symptoms return to the emergency room Ashleigh Schofield Oct 27, 2019 13:03
--- NOTE | 2019-10-27 13:11 | NUR ---
ER DISCHARGE NOTE: Patient is cleared to be discharged per ERMD, pt is aox4, on room air, with stable vital signs. pt was given dc and prescription instructions, pt was able to verbalize understanding, pt id band removed without complications. pt is able to ambulate with steady gait. pt took all belongings.
[2019-10-27 13:17] VITALS: BP 135/78
== END 2019-10-27 13:45 | disposition home or self-care (01) ==
LOC: EMR 13:43
DX: R53.1 Weakness (principal); Z76.0 Encounter for issue of repeat prescription; I11.0 Hypertensive heart disease with heart failure; I50.9 Heart failure, unspecified; Z88.0 Allergy status to penicillin
CPT/HCPCS: 99282

== ENCOUNTER 2020-01-25 12:48 | Emergency (ER) | payer MEDICAID ==
[~2020-01-25] VITALS: Ht 193 cm; Wt 72.6 kg
[2020-01-25 12:53] VITALS: BP 152/101
[2020-01-25] MEDS ORDERED: Lisinopril 10mg tab ORAL ONE (13:15)
[2020-01-25] MEDS ORDERED: Furosemide 40mg tab ORAL ONE (13:15)
--- NOTE | 2020-01-25 13:17 | Emergency Room Report ---
History of Present Illness General Chief Complaint: Dizziness Source: Patient, Medical Record Present Illness HPI 59-year-old male with history of hypertension and CHF here requesting refill of his medication. Patient reports that he last took the last dose of carvedilol, lisinopril, and Lasix 2 days ago. Since then he has been feeling dizzy and weak however no signs of unilateral weakness noted. Patient denies any chest pain or shortness of breath at this time. Patient reports that he always happens to him when he misses the doses of his medication. Patient is moving to the [facility] this month and is requesting a dose of his medication here and a refill of 1 month. Patient refuses any blood work or any invasive measures. Patient agrees to have an EKG and chest x-ray done. In no apparent distress at this time. Denies headache blurry vision and other associate symptoms. Denies tobacco smoke, drug use, alcohol intake. Blood pressure is 159/1 1. Patient is afebrile. Denies pleuritic chest pain. Allergies: Coded Allergies: PENICILLINS (Verified Allergy, Unknown, 06/30/19) Patient History Past Medical History: see triage record Past Surgical History: unable to obtain Pertinent Family History: none Immunizations: UTD Reviewed Nursing Documentation: PMH: Agreed; PSxH: Agreed Nursing Documentation-PMH Past Medical History: No History, Except For Hx Cardiac Problems: Yes Hx Hypertension: Yes Review of Systems All Other Systems: negative except mentioned in HPI Physical Exam Vital Signs Date Time Temp Pulse Resp B/P (MAP) Pulse Ox O2 Delivery O2 Flow Rate FiO2 01/25/20 12:53 97.2 103 18 152/101 (118) 98 Room Air Sp02 EP Interpretation: abnormal - elevated BP General Appearance: no apparent distress Head: normocephalic, atraumatic Eyes: bilateral eye normal inspection, bilateral eye PERRL ENT: hearing grossly normal, normal pharynx, no angioedema, normal voice Neck: full range of motion, supple/symm/no masses Respiratory: chest non-tender, lungs clear, normal breath sounds, no rhonchi, no retraction, no wheezing, speaking full sentences Cardiovascular #1: regular rate, rhythm, no edema, no murmur, normal capillary refill Cardiovascular #2: 2+ carotid (R), 2+ carotid (L), 2+ radial (R), 2+ radial (L) Gastrointestinal: normal bowel sounds, non tender, soft, non-distended, no guarding, no rebound Rectal: deferred Genitourinary: no CVA tenderness Musculoskeletal: back normal, no calf tenderness, pelvis stable Neurologic: alert, motor strength/tone normal, oriented x3, sensory intact, responsive, speech normal Psychiatric: judgement/insight normal, memory normal, mood/affect normal, no suicidal/homicidal ideation Skin: no rash Lymphatic: no adenopathy Medical Decision Making PA Attestation All diagnoses and treatment plans were reviewed and discussed with my supervising physician Dr. Bean Diagnostic Impression: Primary Impression: Dizziness Additional Impression: Encounter for medication refill ER Course 59-year-old male with history of hypertension and CHF here requesting refill of his medication. Patient reports that he last took the last dose of carvedilol, lisinopril, and Lasix 2 days ago. Since then he has been feeling dizzy and weak however no signs of unilateral weakness noted. Patient denies any chest pain or shortness of breath at this time. Patient reports that he always happens to him when he misses the doses of his medication. Patient is moving to the [facility] this month and is requesting a dose of his medication here and a refill of 1 month. Patient refuses any blood work or any invasive measures. Patient agrees to have an EKG and chest x-ray done. In no apparent distress at this time. Denies headache blurry vision and other associate symptoms. Denies tobacco smoke, drug use, alcohol intake. Blood pressure is 159/1 1. Patient is afebrile. Denies pleuritic chest pain. Ddx considered but are not limited to: Dizziness due to alcohol intoxication, dizziness unspecified, dizziness due to head trauma, dizziness secondary to cardiac reasons Vital signs: are WNL, pt. is afebrile H&PE are most consistent with: Dizziness secondary to not taking medication ORDERS: EKG, chest x-ray, carvedilol, lisinopril, Lasix ER intervention: Carvedilol, lisinopril, Lasix p.o. DISCHARGE: At this time pt. is stable for d/c to home. Will provide printed patient care instructions, and any necessary prescriptions. Care plan and follow up instructions have been discussed with the patient prior to discharge. At this time I do not advised patient to leave without further evaluation however patient refuses blood work. Patient will establish a creative guru in the [facility]. Patient understands the risks of leaving without further blood work. I advised him to return to the emergency room if worsening symptoms. EKG Diagnostic Results Rate: normal Rhythm: NSR ST Segments: no acute changes Other Impression No acute ST changes Chest X-Ray Diagnostic Results Chest X-Ray Diagnostic Results : Chest X-Ray Ordered: Yes # of Views/Limited/Complete: 1 View Indication: Other - dizzy EP Interpretation: Yes JOCELYN Xray: Interpretation reviewed, by supervising MD, and agrees with findings. Interpretation: no consolidation, no effusion, no pneumothorax, no acute cardiopulmonary disease Impression: No acute disease Electronically Signed by: Ashleigh Dent PA-C Last Vital Signs Date Time Temp Pulse Resp B/P (MAP) Pulse Ox O2 Delivery O2 Flow Rate FiO2 01/25/20 12:53 97.2 103 18 152/101 (118) 98 Room Air Disposition: HOME, SELF-CARE Condition: Stable Referrals: NON PHYSICIAN (PCP) Patient Instructions: Dizziness Additional Instructions: Patient will establish a creative guru in the [facility]. Patient understands the risks of leaving without further blood work. I advised him to return to the emergency room if worsening symptoms. Ashleigh Schofield Jan 25, 2020 13:16
[2020-01-25] MEDS ORDERED: FUROSEMIDE40 MG ORAL (14:05)
[2020-01-25] MEDS ORDERED: CARVEDILOL3.125 MG ORAL (14:05)
[2020-01-25] MEDS ORDERED: LISINOPRIL10 MG ORAL (14:05)
[2020-01-25 14:16] VITALS: BP 142/82
--- NOTE | 2020-01-26 13:04 | Diagnostic Imaging Report ---
Indication: Dyspnea Comparison: 08/22/2019 A single view chest radiograph was obtained. Findings: Moderate cardiac enlargement demonstrated. This is unchanged. Lungs remain clear. Aorta is mildly ectatic. IMPRESSION: No acute disease
== END 2020-01-25 14:17 | disposition home or self-care (01) ==
LOC: EMR 13:07
DX: R42 Dizziness and giddiness (principal); Z76.0 Encounter for issue of repeat prescription; Z88.0 Allergy status to penicillin; I11.0 Hypertensive heart disease with heart failure; I50.9 Heart failure, unspecified
CPT/HCPCS: 71045; 93005; Z7502; 99283

== ENCOUNTER 2020-03-02 13:43 | Emergency (ER) | payer MEDICAID ==
[~2020-03-02] VITALS: Ht 182.9 cm; Wt 72.6 kg
[2020-03-02 14:17] VITALS: BP 134/94
--- NOTE | 2020-03-02 14:21 | Emergency Room Report ---
History of Present Illness General Chief Complaint: Medication Refill Source: Medical Record Present Illness HPI 59-year-old male with history of CHF and hypertension has been here multiple times refusing any blood work or EKG is here requesting medication refill for carvedilol, Lasix and lisinopril. Patient refuses blood work, EKG and chest x- ray at this time. However vital signs are within normal limit and denies any chest pain or shortness of breath at this time. Denies abdominal pain nausea vomiting diarrhea. Denies fever and chills. Allergies: Coded Allergies: PENICILLINS (Verified Allergy, Unknown, 06/30/19) COVID-19 Screening Contact w/high risk pt: No Recent Travel to affected area: No Experienced COVID-19 symptoms?: No Patient History Past Medical History: see triage record Past Surgical History: none Pertinent Family History: none Immunizations: UTD Reviewed Nursing Documentation: PMH: Agreed; PSxH: Agreed Nursing Documentation-PMH Past Medical History: No History, Except For Hx Cardiac Problems: Yes Hx Hypertension: Yes Review of Systems All Other Systems: negative except mentioned in HPI Physical Exam Vital Signs Date Time Temp Pulse Resp B/P (MAP) Pulse Ox O2 Delivery O2 Flow Rate FiO2 03/02/20 14:17 97.5 92 19 134/94 98 Room Air Sp02 EP Interpretation: reviewed, normal General Appearance: well appearing, no apparent distress Head: normocephalic, atraumatic ENT: hearing grossly normal, normal voice Neck: full range of motion, supple Respiratory: no rhonchi, no respiratory distress, no wheezing, speaking full sentences Cardiovascular #1: regular rate, rhythm, no murmur Gastrointestinal: non tender, soft Genitourinary: no CVA tenderness Musculoskeletal: gait/station normal Neurologic: alert, normal gait Psychiatric: mood/affect normal Skin: no rash Lymphatic: no adenopathy Medical Decision Making PA Attestation All diagnoses and treatment plans were reviewed and discussed with my supervising physician Dr. Abrams Diagnostic Impression: Primary Impression: Encounter for medication refill ER Course 59-year-old male with history of CHF and hypertension has been here multiple times refusing any blood work or EKG is here requesting medication refill for carvedilol, Lasix and lisinopril. Patient refuses blood work, EKG and chest x- ray at this time. However vital signs are within normal limit and denies any chest pain or shortness of breath at this time. Denies abdominal pain nausea vomiting diarrhea. Denies fever and chills. Ddx considered but are not limited to: [place], Angina, COPD, GERD, medication refill for hypertension and CHF Vital signs: are WNL, pt. is afebrile H&PE are most consistent with medication refill for hypertension and CHF ORDERS: Refuses blood work, chest x-ray and EKG. Lisinopril, Lasix, carvedilol follow-up for 1 month of supply ED INTERVENTIONS: None required at this time. DISCHARGE: At this time pt. is stable for d/c to home. Will provide printed patient care instructions, and any necessary prescriptions. Care plan and follow up instructions have been discussed with the patient prior to discharge. Gave a list of treatments to go to, at this time decided to refill medication for 1 month however advised patient to establish with a regular doctor as well as a customer service coordinator as he keeps refusing blood work and the dosing of the medication may not be appropriate at this time. Last Vital Signs Date Time Temp Pulse Resp B/P (MAP) Pulse Ox O2 Delivery O2 Flow Rate FiO2 03/02/20 14:17 97.5 94 16 134/90 (105) 95 Room Air Disposition: HOME, SELF-CARE Condition: Stable Scripts Furosemide* (LASIX*) 40 Mg Tablet 40 MG ORAL DAILY, #30 TAB Prov: Ashleigh Schofield 03/02/20 Carvedilol* (CARVEDILOL*) 3.125 Mg Tablet 3.125 MG ORAL EVERY 12 HOURS for 30 Days, #60 TAB Prov: Ashleigh Schofield 03/02/20 Lisinopril* (LISINOPRIL*) 10 Mg Tablet 10 MG ORAL DAILY, #30 TAB Prov: Ashleigh Schofield 03/02/20 Referrals: NOT CHOSEN IPA/,REFERRING (PCP) Patient Instructions: Medicine Refill at the Emergency Department Ashleigh Schofield Mar 02, 2020 14:21
[2020-03-02] MEDS ORDERED: LISINOPRIL10 MG ORAL (14:22)
[2020-03-02] MEDS ORDERED: CARVEDILOL3.125 MG ORAL (14:22)
[2020-03-02] MEDS ORDERED: FUROSEMIDE40 MG ORAL (14:22)
[2020-03-02 14:42] VITALS: BP 134/94
== END 2020-03-02 14:42 | disposition home or self-care (01) ==
LOC: EMR 14:19
DX: I11.0 Hypertensive heart disease with heart failure (principal); I50.9 Heart failure, unspecified; Z76.0 Encounter for issue of repeat prescription; Z88.0 Allergy status to penicillin
CPT/HCPCS: 99282

== ENCOUNTER 2020-03-31 14:07 | Emergency (ER) | payer MEDICAID ==
[~2020-03-31] VITALS: Ht 180.3 cm; Wt 72.6 kg
--- NOTE | 2020-03-31 14:28 | Emergency Room Report ---
History of Present Illness General Chief Complaint: Medication Refill Source: Patient Present Illness HPI 59-year-old male with history of hypertension and CHF here requesting refill of his medication. Patient has [id number] here multiple times for the same reason. Does not appear to have primary doctor nor office correspondent. Appears to be homeless. However due to the intensity of diagnoses patient to have a refill of 1 month for Lasix, carvedilol, lisinopril. Patient appears to be stable, with stable vital signs. Reports that last took his blood pressure medication earlier today. Denies chest pain, shortness of breath, headache or dizziness. Allergies: Coded Allergies: PENICILLINS (Verified Allergy, Unknown, 06/30/19) COVID-19 Screening Contact w/high risk pt: No Recent Travel to affected area: No Experienced COVID-19 symptoms?: No Patient History Past Medical History: see triage record Past Surgical History: none Pertinent Family History: none Immunizations: UTD Reviewed Nursing Documentation: PMH: Agreed; PSxH: Agreed Nursing Documentation-PMH Past Medical History: No History, Except For Hx Cardiac Problems: Yes Hx Hypertension: Yes Hx Pacemaker: No Review of Systems All Other Systems: negative except mentioned in HPI Physical Exam Sp02 EP Interpretation: reviewed, normal General Appearance: well appearing, no apparent distress Head: normocephalic, atraumatic ENT: hearing grossly normal, normal voice Neck: full range of motion, supple Respiratory: lungs clear, no rhonchi, no retraction, no wheezing Cardiovascular #1: regular rate, rhythm, no edema, no gallop, no murmur Cardiovascular #2: 2+ radial (R), 2+ radial (L) Gastrointestinal: soft Genitourinary: normal inspection Musculoskeletal: normal inspection Neurologic: alert Psychiatric: mood/affect normal Skin: no rash Lymphatic: normal inspection Medical Decision Making PA Attestation All my diagnosis and treatment plans were reviewed ad discussed with my supervising physician Dr. Flower Diagnostic Impression: Primary Impression: Encounter for medication refill ER Course 59-year-old male with history of hypertension and CHF here requesting refill of his medication. Patient has [id number] here multiple times for the same reason. Does not appear to have primary doctor nor office correspondent. Appears to be homeless. However due to the intensity of diagnoses patient to have a refill of 1 month for Lasix, carvedilol, lisinopril. Patient appears to be stable, with stable vital signs. Reports that last took his blood pressure medication earlier today. Denies chest pain, shortness of breath, headache or dizziness. Ddx considered but are not limited to: [place], Angina, COPD, GERD, medication refill Vital signs: are WNL, pt. is afebrile H&PE are most consistent with encounter for medication refill for CHF and hypertension ORDERS: Patient refuses blood work and imaging as well as, lisinopril, carvedilol, Lasix ED INTERVENTIONS: None required at this time. DISCHARGE: At this time pt. is stable for d/c to home. Will provide printed patient care instructions, and any necessary prescriptions. Care plan and follow up instructions have been discussed with the patient prior to discharge. Patient to follow-up with office correspondent and primary doctor for further evaluation. If worsening symptoms return to the emergency room Disposition: HOME, SELF-CARE Condition: Stable Scripts Carvedilol* (CARVEDILOL*) 3.125 Mg Tablet 3.125 MG ORAL EVERY 12 HOURS for 30 Days, #60 TAB Prov: Ashleigh Schofield 03/31/20 Lisinopril* (LISINOPRIL*) 10 Mg Tablet 10 MG ORAL DAILY, #30 TAB Prov: Ashleigh Schofield 03/31/20 Furosemide* (LASIX*) 40 Mg Tablet 40 MG ORAL DAILY, #30 TAB Prov: Ashleigh Schofield 03/31/20 Patient Instructions: Medicine Refill at the Emergency Department Ashleigh Schofield March 31, 2020 14:28
[2020-03-31 14:30] VITALS: BP 149/99
[2020-03-31] MEDS ORDERED: FUROSEMIDE40 MG ORAL (14:31)
[2020-03-31] MEDS ORDERED: LISINOPRIL10 MG ORAL (14:31)
[2020-03-31] MEDS ORDERED: CARVEDILOL3.125 MG ORAL (14:31)
[2020-03-31 14:38] VITALS: BP 138/98
== END 2020-03-31 14:38 | disposition home or self-care (01) ==
LOC: EMR 14:33
DX: Z76.0 Encounter for issue of repeat prescription (principal); I11.0 Hypertensive heart disease with heart failure; I50.9 Heart failure, unspecified; Z88.0 Allergy status to penicillin
CPT/HCPCS: 99282

== ENCOUNTER 2020-05-04 15:53 | Emergency (ER) | payer MEDICAID ==
[~2020-05-04] VITALS: Ht 182.9 cm; Wt 72.6 kg
[2020-05-04 16:17] VITALS: BP 148/89
--- NOTE | 2020-05-04 16:29 | Emergency Room Report ---
History of Present Illness General Chief Complaint: Medication Refill Source: Patient Present Illness HPI 59-year-old male presents to the emergency department requesting medication refill for his high blood pressure and CHF medications. Patient reports that he does not have a primary care provider and does not have intentions in establishing himself with one here as he plans to move to [place] sometime this month. Patient reports that he was going to move several months ago however due to pandemic plans were delayed. He denies shortness of breath, chest pain, swelling of the lower extremities. He denies headache, dizziness, syncope or visual changes. Patient reports he needs refill for carvedilol, lisinopril and his Lasix. He denies any aggravating or relieving factors at this time. And has no other complaints. Allergies: Coded Allergies: PENICILLINS (Verified Allergy, Unknown, 06/30/19) COVID-19 Screening Contact w/high risk pt: No Recent Travel to affected area: No Experienced COVID-19 symptoms?: No COVID-19 Testing performed CIGARETTE CARTON SEALER: No Patient History Past Medical History: see triage record, HTN, CHF Past Surgical History: none Pertinent Family History: none Reviewed Nursing Documentation: PMH: Agreed; PSxH: Agreed Nursing Documentation-PMH Past Medical History: No History, Except For Hx Cardiac Problems: Yes Hx Hypertension: Yes Hx Pacemaker: No Review of Systems All Other Systems: negative except mentioned in HPI Physical Exam Vital Signs Date Time Temp Pulse Resp B/P (MAP) Pulse Ox O2 Delivery O2 Flow Rate FiO2 05/04/20 16:10 97.5 93 18 148/89 (108) 99 Room Air Sp02 EP Interpretation: reviewed, normal General Appearance: no apparent distress, alert, GCS 15, non-toxic Head: normocephalic, atraumatic Eyes: bilateral eye normal inspection, bilateral eye PERRL ENT: hearing grossly normal, normal voice Neck: full range of motion Respiratory: chest non-tender, lungs clear, normal breath sounds, no rhonchi, no respiratory distress, no accessory muscle use, no wheezing, speaking full sentences Cardiovascular #1: regular rate, rhythm, no edema Musculoskeletal: normal range of motion, gait/station normal, non-tender Neurologic: alert, motor strength/tone normal, oriented x3, sensory intact, responsive, speech normal Psychiatric: judgement/insight normal Skin: no rash, normal color Medical Decision Making PA Attestation Dr. Dhaliwal is my supervising Physician whom patient management has been discussed with. Homeless Attestation I, The treating provider, Leatha BANKS, has assessed and agrees that patient is medically stable for discharge to an outpatient disposition. Diagnostic Impression: Primary Impression: Encounter for medication refill Additional Impressions: History of congestive heart failure History of hypertension ER Course 59-year-old male presents to the emergency department requesting medication refill for his high blood pressure and CHF medications. Patient reports that he does not have a primary care provider and does not have intentions in establishing himself with one here as he plans to move to [place] sometime this month. Patient reports that he was going to move several months ago however due to pandemic plans were delayed. He denies shortness of breath, chest pain, swelling of the lower extremities. He denies headache, dizziness, syncope or visual changes. Patient reports he needs refill for carvedilol, lisinopril and his Lasix. He denies any aggravating or relieving factors at this time. And has no other complaints. Ddx considered but are not limited to: drug seeking, OD, non-compliance with follow up, CHF, HTN just to name a few. Vital signs: are WNL, pt. is afebrile H&PE are most consistent with need for medication refill. ORDERS: none required at this time, the diagnosis is clinical ED INTERVENTIONS: PT. given extensive pt. education on need for primary care provider regardless of whether he intends to stay here or not. D/w pt. risk of being managed habitually by ED providers who have limited knowledge of his medical conditions , and how pt. usually declines basic work ups with labs. D/w pt. that he is putting his health at risk by not seeking a PMD. Pt. endorsed being a transient so I provided him with multiple primary care resources in the nearby area that are free/reduce cost clinics. Pt. verbalizes his understanding and agreement with this plan and assessment of his non-compliance with medical instructions in the past. DISCHARGE: At this time pt. is stable for d/c to home. Will provide printed patient care instructions, and any necessary prescriptions. Care plan and follow up instructions have been discussed with the patient prior to discharge. Last Vital Signs Date Time Temp Pulse Resp B/P (MAP) Pulse Ox O2 Delivery O2 Flow Rate FiO2 05/04/20 16:17 97.5 18 148/89 99 Room Air 05/04/20 16:10 93 Disposition: HOME, SELF-CARE Condition: Stable Scripts Furosemide* (LASIX*) 40 Mg Tablet 40 MG ORAL DAILY, #30 TAB Prov: Leatha Patel 05/04/20 Lisinopril* (LISINOPRIL*) 10 Mg Tablet 10 MG ORAL DAILY, #30 TAB Prov: Leatha Patel 05/04/20 Carvedilol* (CARVEDILOL*) 3.125 Mg Tablet 3.125 MG ORAL EVERY 12 HOURS, #60 TAB Prov: Leatha Patel 05/04/20 Patient Instructions: Medicine Refill at the Emergency Department Additional Instructions: Take medications as directed. Follow up with a Primary Care Provider in 3-5 days, even if your symptoms have resolved. --Please review list of primary care clinics, if you do not already have a primary care provider Return sooner to ED if new symptoms occur, or current symptoms become worse. - Please note that this Emergency Department Report was dictated using [employer] effects camera operator technology software, occasionally this can lead to erroneous entry secondary to interpretation by the dictation equipment. Leatha Patel May 04, 2020 16:29
[2020-05-04] MEDS ORDERED: FUROSEMIDE40 MG ORAL (16:41)
[2020-05-04] MEDS ORDERED: CARVEDILOL3.125 MG ORAL (16:41)
[2020-05-04] MEDS ORDERED: LISINOPRIL10 MG ORAL (16:41)
[2020-05-04 17:00] VITALS: BP 148/89
== END 2020-05-04 17:00 | disposition home or self-care (01) ==
LOC: EMR 16:23
DX: I10 Essential (primary) hypertension (principal); Z76.0 Encounter for issue of repeat prescription; I50.9 Heart failure, unspecified; Z88.0 Allergy status to penicillin
CPT/HCPCS: 99282

== ENCOUNTER 2020-06-04 14:46 | Emergency (ER) | payer MEDICAID ==
[2020-06-04] MEDS ORDERED: CARVEDILOL3.125 MG ORAL (15:14)
[2020-06-04] MEDS ORDERED: LISINOPRIL10 MG ORAL (15:14)
[2020-06-04] MEDS ORDERED: BACTRIM DS TAB1 EAC1 ORAL (15:14)
[2020-06-04] MEDS ORDERED: FUROSEMIDE40 MG ORAL (15:14)
== END 2020-06-04 15:20 | disposition home or self-care (01) ==
DX: Z76.0 Encounter for issue of repeat prescription (principal); L02.91 Cutaneous abscess, unspecified; I10 Essential (primary) hypertension; Z88.0 Allergy status to penicillin; S80.862A Insect bite (nonvenomous), left lower leg, initial encounter; S80.861A Insect bite (nonvenomous), right lower leg, initial encounter; S40.862A Insect bite (nonvenomous) of left upper arm, initial encounter; S40.861A Insect bite (nonvenomous) of right upper arm, initial encounter; W57.XXXA Bitten or stung by nonvenomous insect and other nonvenomous arthropods, initial encounter; Y92.9 Unspecified place or not applicable

== ENCOUNTER 2020-07-07 14:31 | Emergency (ER) | payer MEDICAID ==
[~2020-07-07] VITALS: Ht 180.3 cm; Wt 72.6 kg
[~2020-07-07 14:31] MED LIST changes: +BACTRIM DS TAB1 EAC1 ORAL
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
[2020-07-07] MEDS ORDERED: FUROSEMIDE40 MG ORAL (14:40)
[2020-07-07] MEDS ORDERED: LISINOPRIL10 MG ORAL (14:40)
[2020-07-07] MEDS ORDERED: CARVEDILOL3.125 MG ORAL (14:40)
[2020-07-07 14:45] VITALS: BP 149/92
--- NOTE | 2020-07-07 14:45 | NUR ---
ED Nurse Note: PT WALKED INTO ED FOR PRESCRIPTION REFILL OF LASIX (UNKNOWN DOSE) AND 2 OTHER MEDICATION FOR HTN THAT HE CAN NOT RECALL THE NAME, PT BEEN OUT OF MEDS FOR 2 DAYS
[2020-07-07 14:55] VITALS: BP 149/92
--- NOTE | 2020-07-07 14:56 | NUR ---
ED Nurse Note: Pt cleared by health care Provider for discharge. DC instructions/prescription was given and explained to pt and verbalized understanding of teachings. All medical deviecs such as ID band removed. Pt is AAO x4, ambulatory and left with all personal belongings.
== END 2020-07-07 14:55 | disposition home or self-care (01) ==
LOC: EMR 14:47
DX: Z76.0 Encounter for issue of repeat prescription (principal); Z88.0 Allergy status to penicillin; I11.0 Hypertensive heart disease with heart failure; I50.9 Heart failure, unspecified
CPT/HCPCS: 99282

== ENCOUNTER 2020-08-19 08:54 | Emergency (ER) | payer MEDICAID ==
[~2020-08-19] VITALS: Ht 180.3 cm; Wt 72.6 kg
[2020-08-19 09:12] VITALS: BP 121/83
[2020-08-19] MEDS ORDERED: FUROSEMIDE40 MG ORAL (09:22)
[2020-08-19] MEDS ORDERED: CARVEDILOL3.125 MG ORAL (09:22)
[2020-08-19] MEDS ORDERED: LISINOPRIL10 MG ORAL (09:22)
[2020-08-19] MEDS ORDERED: MUPIROCIN22 GM TOPIC (09:22)
[2020-08-19 09:30] VITALS: BP 133/81
--- NOTE | 2020-08-19 10:12 | Emergency Room Report ---
History of Present Illness General Chief Complaint: Medication Refill Source: Patient Present Illness HPI Patient presents emergency department today requesting a medication refill. Patient has a history of hypertension. Patient takes lisinopril carvedilol and furosemide. He states that his last dose of medications was yesterday. In addition he has multiple spider bites for which he took antibiotics for fear states that the spider bites are healing. However he would like some topical antibiotics. Denies any other complaints. Denies any chest pain shortness of breath. Denies any nausea vomiting diarrhea chills. Patient has had medication refills at our hospital in the past before. Patient declines for any testing. He does not have any complaints of chest pain shortness breath or dyspnea on exertion. Therefore we will refill patient's medications. No other modifying factors. No other associated signs and symptoms. No other complaints were noted. Allergies: Coded Allergies: PENICILLINS (Verified Allergy, Unknown, 06/30/19) COVID-19 Screening Contact w/high risk pt: No Recent Travel to affected area: No Experienced COVID-19 symptoms?: No COVID-19 Testing performed GANG INVESTIGATOR: Yes COVID-19 Screening: Negative COVID-19 COVID-19 Testing Source: [facility] 1 week ago Patient History Past Medical History: HTN Past Surgical History: none Pertinent Family History: none Social History: Denies: smoking, alcohol use, drug use Social History Narrative Patient is homeless. Reviewed Nursing Documentation: PMH: Agreed; PSxH: Agreed Nursing Documentation-PMH Past Medical History: No History, Except For Hx Cardiac Problems: Yes Hx Hypertension: Yes Hx Pacemaker: No Review of Systems All Other Systems: negative except mentioned in HPI Physical Exam Vital Signs Date Time Temp Pulse Resp B/P (MAP) Pulse Ox O2 Delivery O2 Flow Rate FiO2 08/19/20 09:05 97.5 76 18 121/83 (96) 94 Room Air Sp02 EP Interpretation: reviewed, normal General Appearance: normal inspection, well appearing, no apparent distress, alert Head: atraumatic Eyes: bilateral eye normal inspection ENT: normal ENT inspection, hearing grossly normal, normal voice Neck: normal inspection, full range of motion, supple, no bony tend Respiratory: normal inspection, lungs clear, normal breath sounds, no respiratory distress, no retraction, no wheezing Cardiovascular #1: regular rate, rhythm, no edema Gastrointestinal: normal inspection, normal bowel sounds, non tender, soft, no guarding, no hernia Genitourinary: no CVA tenderness Musculoskeletal: back normal, normal range of motion, other - Multiple bites in the lower extremities. No evidence of abscess. Appears to be healing. No evidence of cellulitis. Neurologic: alert, responsive, speech normal, normal inspection Psychiatric: normal inspection, judgement/insight normal, mood/affect normal Skin: no rash Medical Decision Making Diagnostic Impression: Primary Impression: Insect bites Additional Impression: Encounter for medication refill ER Course Patient presents emergency department today for medication refill. Review of medical records show that patient was previously on carvedilol Lasix and lisinopril. We will refill these medications. Patient is requesting topical a ntibiotic I felt that is reasonable. There is no evidence of systemic infection. Patient does not require oral antibiotics. Patient is advised to follow up with primary doctor or clinic in 2-3 days and return the emergency room for any worsening symptoms and as needed. Patient was given homeless discharge instructions. Patient declined further services. Last Vital Signs Date Time Temp Pulse Resp B/P (MAP) Pulse Ox O2 Delivery O2 Flow Rate FiO2 08/19/20 09:30 98.0 79 20 133/81 95 Room Air Status: improved Disposition: OTH-HOMELESS Condition: Stable Scripts Mupirocin* (MUPIROCIN*) 22 Gm Oint...g. 1 APPLIC TOPIC THREE TIMES A DAY for 10 Days, GM Prov: Kleber Belle MD 08/19/20 Furosemide* (LASIX*) 40 Mg Tablet 40 MG ORAL DAILY for 30 Days, TAB Prov: Kleber Belle MD 08/19/20 Lisinopril* (LISINOPRIL*) 10 Mg Tablet 10 MG ORAL DAILY for 30 Days, TAB Prov: Kleber Belle MD 08/19/20 Carvedilol* (CARVEDILOL*) 3.125 Mg Tablet 3.125 MG ORAL EVERY 12 HOURS for 30 Days, TAB Prov: Kleber Belle MD 08/19/20 Referrals: [facility],REFERRING (PCP) Patient Instructions: Medicine Refill at the Emergency Department Kleber Belle MD Aug 19, 2020 10:12
== END 2020-08-19 09:30 | disposition other institution (70) ==
LOC: EMR 09:25
DX: S80.862A Insect bite (nonvenomous), left lower leg, initial encounter (principal); S80.861A Insect bite (nonvenomous), right lower leg, initial encounter; W57.XXXA Bitten or stung by nonvenomous insect and other nonvenomous arthropods, initial encounter; Z76.0 Encounter for issue of repeat prescription; Z88.0 Allergy status to penicillin; I10 Essential (primary) hypertension
CPT/HCPCS: 99282

== ENCOUNTER 2020-09-27 08:58 | Emergency (ER) | payer MEDICAID ==
[~2020-09-27] VITALS: Ht 180.3 cm; Wt 74.8 kg
[~2020-09-27 08:58] MED LIST changes: +MUPIROCIN22 GM TOPIC
--- NOTE | 2020-09-27 09:04 | NUR ---
ED Nurse Note: Pt walked into ED for med refill. Pt states he needs refill of Lasix and 2 blood pressure medications that he can't remember the name of. Pt is alert and orientedx4, ambulatory.
[2020-09-27 09:06] VITALS: BP 125/91
[2020-09-27] MEDS ORDERED: BACTRIM DS TAB1 EAC1 ORAL (09:15)
[2020-09-27] MEDS ORDERED: CARVEDILOL3.125 MG ORAL (09:15)
[2020-09-27] MEDS ORDERED: MUPIROCIN22 GM TOPIC (09:15)
[2020-09-27] MEDS ORDERED: LISINOPRIL10 MG ORAL (09:15)
[2020-09-27] MEDS ORDERED: FUROSEMIDE40 MG ORAL (09:15)
[2020-09-27 09:25] VITALS: BP 121/88
--- NOTE | 2020-09-27 09:29 | NUR ---
ER DISCHARGE NOTE: Patient is cleared to be discharged per ERMD, pt is aox4, on room air, with stable vital signs. pt was given dc and prescription instructions, pt was able to verbalize understanding, pt id band removed. pt is able to ambulate with steady gait. pt took all belongings. Homeless log and mini cog completed. Meal provided to patient. Clothing adequate. Resources provided. Pt told he can wait for precriptions samples from [facility], but refused to wait. He states he wants to get prescriptions filled out himself.
--- NOTE | 2020-09-28 07:24 | Emergency Room Report ---
History of Present Illness General Chief Complaint: Medication Refill Source: Patient Present Illness HPI 60-year-old male presents for medication refill. Notes history of hypertension. States he takes 3 medications 1 of which is Lasix. Cannot remember the other 2. States that he has gotten them here previously and should be on her records. States he feels fine. Denies chest pain or shortness of breath. No other aggravating relieving factors. Denies any other associated symptoms Allergies: Coded Allergies: PENICILLINS (Verified Allergy, Unknown, 06/30/19) COVID-19 Screening Contact w/high risk pt: No Recent Travel to affected area: No Experienced COVID-19 symptoms?: No COVID-19 Testing performed HIGH SCHOOL COORDINATOR: No Patient History Past Medical History: HTN, psych hx Past Surgical History: none Pertinent Family History: none Social History: Denies: smoking, alcohol use, drug use Immunizations: UTD Reviewed Nursing Documentation: PMH: Agreed; PSxH: Agreed Nursing Documentation-PMH Past Medical History: No History, Except For Hx Hypertension: Yes - DEPRESSION Hx Pacemaker: No Review of Systems All Other Systems: negative except mentioned in HPI Physical Exam Vital Signs Date Time Temp Pulse Resp B/P (MAP) Pulse Ox O2 Delivery O2 Flow Rate FiO2 09/27/20 09:00 97.2 93 16 122/92 (102) 100 Room Air Sp02 EP Interpretation: reviewed, normal General Appearance: no apparent distress, alert, GCS 15, non-toxic Head: normocephalic, atraumatic Eyes: bilateral eye normal inspection, bilateral eye PERRL ENT: hearing grossly normal, normal pharynx, no angioedema, normal voice Neck: full range of motion, supple/symm/no masses Respiratory: chest non-tender, lungs clear, normal breath sounds, speaking full sentences Cardiovascular #1: regular rate, rhythm, no edema Cardiovascular #2: 2+ carotid (R), 2+ carotid (L), 2+ radial (R), 2+ radial (L), 2+ dorsalis pedis (R), 2+ dorsalis pedis (L) Gastrointestinal: normal bowel sounds, non tender, soft, non-distended, no guarding, no rebound Rectal: deferred Genitourinary: normal inspection, no CVA tenderness Musculoskeletal: back normal, normal range of motion, gait/station normal, non- tender Neurologic: alert, motor strength/tone normal, oriented x3, sensory intact, responsive, speech normal Psychiatric: judgement/insight normal, memory normal, mood/affect normal, no suicidal/homicidal ideation Reflexes: 3+ bicep (R), 3+ bicep (L), 3+ tricep (R), 3+ tricep (L), 3+ knee (R), 3+ knee (L) Skin: other - Multiple papular noted on bilateral legs. Nonerythematous base. Lymphatic: no adenopathy Medical Decision Making Homeless Attestation I, The treating physician Dr. Redman, have assessed and agrees that patient is medically stable for discharge to an outpatient disposition. Diagnostic Impression: Primary Impression: Encounter for medication refill Additional Impression: Insect bites Qualified Codes: S80.869A - Insect bite (nonvenomous), unspecified lower leg, initial encounter; W57.XXXA - Bitten or stung by nonvenomous insect and other nonvenomous arthropods, initial encounter ER Course 60-year-old male presents for medication refill. History of hypertension hospital course: After initial history and physical, I reviewed EMR. Patient takes Lasix, carvedilol and lisinopril. We will provide refills of all these medications. Notes multiple insect bites to his lower legs. States he has been here previously for this. Afebrile, nontoxic-appearing. I will prescribe antibiotics. Safe for discharge close outpatient follow-up Diagnosis-encounter for medication refill, insect bites Stable and discharged. Followup with PMD. Return to ED if symptoms recur or worsen Last Vital Signs Date Time Temp Pulse Resp B/P (MAP) Pulse Ox O2 Delivery O2 Flow Rate FiO2 09/27/20 09:25 97.2 81 16 121/88 99 Room Air Status: improved Disposition: HOME, SELF-CARE Condition: Stable Scripts Mupirocin* (MUPIROCIN*) 22 Gm Oint...g. 1 APPLIC TOPIC THREE TIMES A DAY for 10 Days, GM Prov: Randall Redman MD 09/27/20 Furosemide* (LASIX*) 40 Mg Tablet 40 MG ORAL DAILY for 30 Days, TAB Prov: Randall Redman MD 09/27/20 Carvedilol* (CARVEDILOL*) 3.125 Mg Tablet 3.125 MG ORAL EVERY 12 HOURS, #60 TAB Prov: Randall Redman MD 09/27/20 Trimethoprim/Sulfamethoxazole 160/800* (BACTRIM DS TABLET*) 1 Each Tablet 1 TAB ORAL Q12H, #14 TAB 0 Refills Prov: Randall Redman MD 09/27/20 Lisinopril* (LISINOPRIL*) 10 Mg Tablet 10 MG ORAL DAILY, #30 TAB Prov: Randall Redman MD 09/27/20 Referrals: [facility],REFERRING (PCP) Sherley Cook Comp. [facility] Patient Instructions: Medicine Refill at the Emergency Department Randall Redman MD Sep 28, 2020 07:24
== END 2020-09-27 09:25 | disposition home or self-care (01) ==
LOC: EMR 09:10
DX: Z76.0 Encounter for issue of repeat prescription (principal); I10 Essential (primary) hypertension; Z88.0 Allergy status to penicillin; S80.862A Insect bite (nonvenomous), left lower leg, initial encounter; S80.861A Insect bite (nonvenomous), right lower leg, initial encounter; W57.XXXA Bitten or stung by nonvenomous insect and other nonvenomous arthropods, initial encounter; Y92.9 Unspecified place or not applicable
CPT/HCPCS: 99282

== ENCOUNTER 2020-10-21 15:23 | Emergency (ER) | payer MEDICAID ==
[~2020-10-21] VITALS: Ht 180.3 cm; Wt 72.6 kg
--- NOTE | 2020-10-21 15:39 | NUR ---
ED Nurse Note: Pt walked in to ED for medication refill Lasix and BP meds, pt unable to recall the names. Pt also c/o bilateral lower leg multiple spider bite, asking for some atb. vss, denies pain, nad noted.
[2020-10-21 15:40] VITALS: BP 130/88
--- NOTE | 2020-10-21 16:04 | Emergency Room Report ---
History of Present Illness General Chief Complaint: Medical Clearance Source: Patient Present Illness HPI 60-year-old male with history of hypertension and CHF who has been here multiple times requesting refill of medication here requesting refill of lisinopril, furosemide, and carvedilol. Also requesting new antibiotics memory cream for" insect bites" lower extremities. Patient reports that he has lost his ID and he cannot see a primary doctor. Denies any chest pain shortness of breath at this time. Denies any blood work, and further evaluation. Allergies: Coded Allergies: PENICILLINS (Verified Allergy, Unknown, 06/30/19) COVID-19 Screening Contact w/high risk pt: No Recent Travel to affected area: No Experienced COVID-19 symptoms?: No COVID-19 Testing performed GLORY HOLE TENDER: No Patient History Past Medical History: see triage record Past Surgical History: none Pertinent Family History: none Reviewed Nursing Documentation: PMH: Agreed; PSxH: Agreed Nursing Documentation-PMH Hx Hypertension: Yes - DEPRESSION Hx Pacemaker: No Review of Systems All Other Systems: negative except mentioned in HPI Physical Exam Vital Signs Date Time Temp Pulse Resp B/P (MAP) Pulse Ox O2 Delivery O2 Flow Rate FiO2 10/21/20 15:25 98.1 97 19 130/88 (102) 96 Room Air 10/21/20 15:40 100 Sp02 EP Interpretation: reviewed, normal General Appearance: well appearing, no apparent distress Head: normocephalic, atraumatic ENT: hearing grossly normal, normal voice Neck: full range of motion, supple Respiratory: no respiratory distress, speaking full sentences Cardiovascular #1: regular rate, rhythm, no edema, no murmur Cardiovascular #2: 2+ radial (R), 2+ radial (L) Gastrointestinal: soft Rectal: deferred Musculoskeletal: gait/station normal Neurologic: alert, normal gait Psychiatric: mood/affect normal Skin: no rash Lymphatic: no adenopathy Medical Decision Making PA Attestation All my diagnosis and treatment plans were reviewed ad discussed with my supervising physician Dr. Flower Diagnostic Impression: Primary Impression: Encounter for medication refill ER Course 60-year-old male with history of hypertension and CHF who has been here multiple times requesting refill of medication here requesting refill of lisinopril, furosemide, and carvedilol. Also requesting new antibiotics memory cream for" i nsect bites" lower extremities. Patient reports that he has lost his ID and he cannot see a primary doctor. Denies any chest pain shortness of breath at this time. Denies any blood work, and further evaluation. Ddx considered but are not limited to: Hypertension, CHF, [place], Angina, COPD, GERD, Vital signs: are WNL, pt. is afebrile H&PE are most consistent with medication refill, hypertension, CHF, insect bite ORDERS: Lisinopril, furosemide, carvedilol for 1 week supply, Keflex, mupirocin ointment ED INTERVENTIONS: None required at this time. DISCHARGE: At this time pt. is stable for d/c to home. Will provide printed patient care instructions, and any necessary prescriptions. Care plan and follow up instructions have been discussed with the patient prior to discharge. Gave a list of family clinics for patient to follow-up with for further evaluation and refills of blood work, advised to return to the emergency room if worsening symptoms Last Vital Signs Date Time Temp Pulse Resp B/P (MAP) Pulse Ox O2 Delivery O2 Flow Rate FiO2 10/21/20 15:40 97 19 Room Air 100 10/21/20 15:40 98.1 130/88 96 Disposition: HOME, SELF-CARE Condition: Stable Scripts Mupirocin* (MUPIROCIN*) 22 Gm Oint...g. 1 APPLIC TOPIC THREE TIMES A DAY, #22 GM Prov: Ashleigh Schofield 10/21/20 Cephalexin* (KEFLEX*) 500 Mg Capsule 500 MG ORAL EVERY 6 HOURS for 7 Days, #28 CAP Prov: Ashleigh Schofield 10/21/20 Carvedilol* (CARVEDILOL*) 3.125 Mg Tablet 3.125 MG ORAL EVERY 12 HOURS for 14 Days, #28 TAB Prov: Ashleigh Schofield 10/21/20 Lisinopril* (LISINOPRIL*) 10 Mg Tablet 10 MG ORAL DAILY for Hypertension for 14 Days, #14 TAB Prov: Ashleigh Schofield 10/21/20 Furosemide* (LASIX*) 40 Mg Tablet 40 MG ORAL DAILY for Diuretic for 14 Days, #14 TAB Prov: Ashleigh Schofield 10/21/20 Patient Instructions: Medicine Refill at the Emergency Department Ashleigh Schofield Oct 21, 2020 16:04
[2020-10-21] MEDS ORDERED: LISINOPRIL10 MG ORAL (16:10)
[2020-10-21] MEDS ORDERED: FUROSEMIDE40 MG ORAL (16:10)
[2020-10-21] MEDS ORDERED: CARVEDILOL3.125 MG ORAL (16:10)
[2020-10-21] MEDS ORDERED: MUPIROCIN22 GM TOPIC (16:11)
[2020-10-21] MEDS ORDERED: CEPHALEXIN500 MG ORAL (16:11)
[2020-10-21 16:24] VITALS: BP 134/56
== END 2020-10-21 16:26 | disposition home or self-care (01) ==
LOC: EMR 15:45
DX: Z76.0 Encounter for issue of repeat prescription (principal); I10 Essential (primary) hypertension; Z88.0 Allergy status to penicillin; Z79.899 Other long term (current) drug therapy
CPT/HCPCS: 99282

== ENCOUNTER 2020-11-08 12:48 | Emergency (ER) | payer MEDICAID ==
[~2020-11-08] VITALS: Ht 182.9 cm; Wt 72.6 kg
[~2020-11-08 12:48] MED LIST changes: +CEPHALEXIN500 MG ORAL
--- NOTE | 2020-11-08 13:23 | Emergency Room Report ---
History of Present Illness General Chief Complaint: Abdominal Pain Source: Patient Present Illness HPI 60-year-old male with past medical history of hypertension here with multiple complaints. First complaint is fever and cough. Cough is productive with yellow phlegm x 3 days. Associated myalgias and fatigue, non bloody diarrhea. Second complaint is diffuse abdominal pain x2 days. Associated decreased appe tite. Patient is also requesting a medication refill for his hypertension medications Denies CP, SOB, n/v, back pain, rash, neck pain, headache or photophobia. Patient is homeless. The patient's symptoms were gradual onset, severity was moderate, duration since 3 days. Quality: Nonbloody. Productive Past medical history: Hypertension Past surgical history: Denies Smoking: Tobacco Alcohol use: Denies Drug use: Methamphetamines Review of systems: CONST: ++ fevers ++ chills, No night sweats PULMONARY: ++ productive cough, ++ shortness of breath CARDIAC: No chest pain, No palpitations GI: No vomiting, ++ diarrhea , No melena_or_BRBPR : No dysuria, No hematuria, No discharge NEURO: No new_focal_weakness_or_numbness, No confusion, No vision changes 14 point Review of Systems is otherwise negative except per HPI Physical Exam: GENERAL: Awake_alert_ nontoxic, no acute distress Spo2 97% on RA -normal. Low- grade fever. Disheveled. Poor personal hygiene EYES: Extraocular muscles are intact. Conjunctivae clear. Lids without swelling ENT: External nose and ear normal_in_appearance. Oropharynx clear. Head_atraumatic, dry_oral_mucosa NECK: No JVD. No meningismus. No thyromegaly. Supple. Trachea midline RESP: Mildly increased respiratory effort. Symmetric rise. No stridor. Clear_to_auscultation_No_rales_No_wheezes CARDIAC: Tachycardic and regular rhytm. No_significant pedal edema. ABDOMEN: Soft. Nondistended. Nontender_No_rebound_or_guarding. Negative Beckman sign. No palpable abdominal mass MSK: Normal muscle tone, without rigidity. Extremities without asymmetric deformity or swelling. SKIN: Warm and dry. No visible cyanosis or pallor. No petechiae NEUROLOGIC: Alert, oriented x3. Motor_and_sensation_grossly_intact. No truncal ataxia. Gait_normal Psych: Normal mood and affect, normal judgment and insight - COORDINATION OF CARE Case was discussed with: Patient Any labs and imaging that were ordered were interpreted as part of the medical decision making: Medical Decision Making/Plan: Differential diagnosis includes COVID-19, gastritis, pancreatitis, pneumonia, cholecystitis, choledocholithiasis, hepatitis, small bowel obstruction, volvulus, AAA, pancreatitis, atypical appendicitis, gastroparesis, gastritis, peptic ulcer disease, among others. EKG shows left bundle branch block. Sgarbossa criteria negative. Patient had lateral ST changes that are chronic compared to his previous EKG performed in January 2020. Patient eloped from the ED prior to completion of full work-up A Clipping Marker consult was offered to the patient prior to discharge but the patient eloped prior to talking to the social work program coordinator. All needs were met during this ED visit including food and water, change of clothes, penitentiary referral/resources, and transportation. Allergies: Coded Allergies: PENICILLINS (Verified Allergy, Unknown, 06/30/19) COVID-19 Screening Contact w/high risk pt: No Recent Travel to affected area: No Experienced COVID-19 symptoms?: No COVID-19 Testing performed CHANGE ATTENDANT: No Nursing Documentation-PMH Past Medical History: No History, Except For Hx Hypertension: Yes - DEPRESSION Hx Pacemaker: No Physical Exam Vital Signs Date Time Temp Pulse Resp B/P (MAP) Pulse Ox O2 Delivery O2 Flow Rate FiO2 11/08/20 12:52 99.1 113 16 137/79 (98) 97 Room Air Sp02 EP Interpretation: reviewed, normal Medical Decision Making Diagnostic Impression: Primary Impression: Suspected COVID-19 virus infection Additional Impressions: Cough with fever Hypertension Abdominal pain Methamphetamine use EKG Diagnostic Results Troponin ordered: Yes When was troponin ordered?: Nov 08, 2020 JOCELYN Scribe Text 12-lead EKG (interpreted by me) Time: 1340 Indication: Rhythm analysis Tracing visualized and Interpreted by me. Rhythm: Sinus tachycardia Rate: 103 bpm QTc: 516 Morphology: No_significant_ST_elevations_or_depressions, No STEMI Impression:, Left heart strain/T wave inversion in lead V4 through V6, I and aVL Rhythm Strip Diag. Results Rhythm Strip Time: 13:23 Rate: 100 Rhythm: NSR, no PVC's, no ectopy Last Vital Signs Date Time Temp Pulse Resp B/P (MAP) Pulse Ox O2 Delivery O2 Flow Rate FiO2 11/08/20 12:52 99.1 113 16 137/79 (98) 97 Room Air Disposition: ELOPED Admit Decision Time: 15:22 Condition: Unknown Bernie Leiva D.O. Nov 08, 2020 13:23
[2020-11-08] MEDS ORDERED: Azithromycin 250mg tab ORAL ONE (13:30)
[2020-11-08] MEDS ORDERED: Acetaminophen 500mg (ES) tab ORAL ONE (13:30)
[2020-11-08 15:40] VITALS: BP 137/79
[2020-11-08 16:00] VITALS: BP 137/79
== END 2020-11-08 16:00 | disposition left against medical advice (07) ==
LOC: EMR 13:15
DX: F15.90 Other stimulant use, unspecified, uncomplicated (principal); I10 Essential (primary) hypertension; R10.9 Unspecified abdominal pain; R00.0 Tachycardia, unspecified; I44.7 Left bundle-branch block, unspecified; Z88.0 Allergy status to penicillin; F32.9 Major depressive disorder, single episode, unspecified
CPT/HCPCS: 93005; 96360; Z7502; 99284

== ENCOUNTER 2020-11-12 16:10 | Emergency (ER) | payer MEDICAID ==
[~2020-11-12] VITALS: Ht 182.9 cm; Wt 72.6 kg
[2020-11-12 16:25] VITALS: BP 120/84
--- NOTE | 2020-11-12 16:25 | NUR ---
ED Nurse Note: Pt walked in to ED c/o "spitting out blood" x3 days. Pt reports cough. Pt is requesting for medication refill. Pt also c/o epigastric pain from the pizza he ate last night. Denies n/v/d. AAOx4, verbally responsive. No SOB, on room air. Afebrile. ERMD at bedside.
--- NOTE | 2020-11-12 16:41 | NUR ---
ED Nurse Note: IV line established. Blood sent to lab.
--- NOTE | 2020-11-12 16:44 | Emergency Room Report ---
History of Present Illness General Chief Complaint: General Complaint Source: Patient Present Illness HPI Patient presents with 2 to 3 days of vomiting. He ate some bad pizza from a dumpster. He says he has been vomiting up blood occasionally. He is complaining about abdominal pain it has been fairly constant. He feels that more in the right lower quadrant. He believes that the blood has been vomited out from the been chunky. He denies alcohol abuse or previous upper GI bleeds. He denies fevers or chills. He does smoke marijuana off and therefore has occasional cough. He states he does not have an inhaler at this time. The shortness of breath is not bothering him. He does not believe the blood came from his lungs. He has not noticed what color his stools have been recently. He denies anything black or tarry extra smelling. The patient also has a rash on his lower extremities. He states his been t reated for spider bites. He states he is never been treated for possible scabies. No sore throat, chest pain, palpitations, dysuria joint pain, visual changes, dizziness, headache. He is uncertain whether he has been in contact with COVID-19 positive people. The patient also states that he gets this way when he is out of his blood pressure medication. He is asking for refill. Allergies: Coded Allergies: PENICILLINS (Verified Allergy, Unknown, 06/30/19) COVID-19 Screening Contact w/high risk pt: No Recent Travel to affected area: No Experienced COVID-19 symptoms?: No COVID-19 Testing performed SYSTEMS PROJECT MANAGER: No Patient History Past Medical History: see triage record Social History: Reports: smoking, drug use - thc, and in the past methamphetamine; Denies: alcohol use Social History Narrative born [place], homeless Reviewed Nursing Documentation: PMH: Agreed; PSxH: Agreed Nursing Documentation-PMH Hx Hypertension: Yes - DEPRESSION Hx Pacemaker: No Review of Systems All Other Systems: negative except mentioned in HPI Physical Exam Vital Signs Date Time Temp Pulse Resp B/P (MAP) Pulse Ox O2 Delivery O2 Flow Rate FiO2 11/12/20 16:20 98.2 98 19 120/84 (96) 98 Room Air Sp02 EP Interpretation: reviewed, normal General Appearance: well appearing, alert, non-toxic Head: normocephalic Eyes: bilateral eye normal inspection, bilateral eye PERRL, bilateral eye EOMI ENT: normal pharynx, moist mucus membranes Neck: supple Respiratory: wheezing, expiration Cardiovascular #1: regular rate, rhythm Cardiovascular #2: 2+ radial (R) Gastrointestinal: normal inspection, normal bowel sounds, non tender, no mass, non-distended Musculoskeletal: back normal, normal range of motion, gait/station normal Neurologic: alert, oriented x3 Psychiatric: no suicidal/homicidal ideation, anxious Skin: warm/dry, other - excoriations legs Medical Decision Making Diagnostic Impression: Primary Impression: Abdominal pain Qualified Codes: R10.9 - Unspecified abdominal pain Additional Impressions: Scabies Bronchospasm Renal insufficiency Hyponatremia Methamphetamine abuse ER Course Patient presents with abdominal pain and allegedly vomiting blood. He states this is in response to eating bad pizza. Differential includes gastritis, peptic ulcer disease, gastroenteritis, pancreatitis amongst others. In addition the patient appears to have a scabietic rash. Finally he has bronchospasm. His O2 saturation is good and he is in no respiratory distress at this time. Evaluation with EKG, chest x-ray, abdomen film and labs. Patient treated with IV hydration, Pepcid, Tylenol and Zofran. Patient also covered with permethrin cream. EKG without injury. Labs significant for low sodium renal insufficiency. Patient improved and tolerating oral intake without difficulty. Patient insists on leaving. I discussed with him the danger of his laboratory abnormalities including risk of from renal failure. Patient is insisting that he not stay in the hospital. He understands the risk. [facility] ADVICE. EKG Diagnostic Results Rate: tachycardiac Rhythm: NSR ST Segments: no acute changes - LAE, LVH Rhythm Strip Diag. Results EP Interpretation: yes Rhythm: no PVC's, no ectopy, other - ST Status: improved Disposition: AGAINST MEDICAL ADVICE Condition: Unknown Scripts Famotidine* (Pepcid 20mg tablet*) 20 Mg Tablet 20 MG ORAL DAILY, #30 TAB 0 Refills Prov: Jesus Smalls MD 11/12/20 Permethrin* (ELIMITE*) 60 Gm Cream..g. 1 APPLIC TOPIC ONCE, #60 GM 0 Refills Apply cream from head to toe; leave on for 8-14 hours before washing off with water; may reapply in 1 week if live mites appear. Prov: Jesus Smalls MD 11/12/20 Albuterol Sulfate* (Albuterol Sulfate Hfa*) 8.5 Gm Hfa.aer.ad 2 PUFF INH Q6H, #1 INH Prov: Jesus Smalls MD 11/12/20 Referrals: [facility],REFERRING (PCP) Jesus Smalls MD Nov 12, 2020 16:44
[2020-11-12] MEDS ORDERED: Lice Treatment Shampoo 4oz Bottle TOPIC ONE (16:45)
[2020-11-12] MEDS ORDERED: Acetaminophen 500mg (ES) tab ORAL ONE (16:45)
[2020-11-12] MEDS ORDERED: PERMETHRIN60 GM TOPIC (16:58)
[2020-11-12] MEDS ORDERED: FAMOTIDINE20 MG ORAL (16:58)
[2020-11-12] MEDS ORDERED: ALBUTEROL SULF8.5 G1 INH (16:58)
--- NOTE | 2020-11-12 17:10 | NUR ---
ED Nurse Note: Xray at bedside.
[2020-11-12 17:12] LABS: ANION GAP 5 mmol/L (5-15); BLOOD UREA NITROGEN 28 mg/dL (7-18); CALCIUM 8.5 MG/DL (8.5-10.1); CARBON DIOXIDE 27 MMOL/L (21-32); CHLORIDE 94 MMOL/L (98-107); CREATININE 1.5 MG/DL (0.55-1.30); POTASSIUM 5.2 MMOL/L (3.5-5.1); SODIUM 126 MMOL/L (136-145)
[2020-11-12 17:17] LABS: ALANINE AMINOTRANSFERASE 24 U/L (12-78); ALBUMIN 3.2 G/DL (3.4-5.0); ALBUMIN/GLOBULIN RATIO 0.7 (1.0-2.7); ALKALINE PHOSPHATASE 68 U/L (46-116); ASPARTATE AMINO TRANSFERASE 30 U/L (15-37); BILIRUBIN,TOTAL 0.6 MG/DL (0.2-1.0); CREATINE KINASE 138 U/L (26-308)
--- NOTE | 2020-11-12 17:26 | Diagnostic Imaging Report ---
EXAM: XR Abdomen, 2 Views CLINICAL HISTORY: ABD PAIN TECHNIQUE: Frontal view of the abdomen/pelvis with upright view of the abdomen. COMPARISON: 08/31/2019. FINDINGS: Lower thorax: Cardiomegaly. Intraperitoneal space: No free air. Gastrointestinal tract: Mild to moderate quantity of stool throughout the colon, most notably at the rectosigmoid appeared Nonspecific bowel gas pattern. No dilation. Bones/joints: Osteopenia. Gentle dextroscoliosis of the lumbar spine. Other findings: No abnormal calcifications. IMPRESSION: 1. Mild to moderate quantity of stool throughout the colon, most notably at the rectosigmoid. 2. Nonspecific bowel gas pattern. 3. No renal calculi. 4. Cardiomegaly.
--- NOTE | 2020-11-12 17:27 | Diagnostic Imaging Report ---
EXAM: XR Chest, 1 View CLINICAL HISTORY: ABD PAIN TECHNIQUE: Frontal view of the chest. COMPARISON: No previous studies. FINDINGS: Lungs: There is patchy airspace disease in the right mid lower lung zones. Pleural space: No pleural effusions appeared No pneumothorax. Heart: There is cardiomegaly. Mediastinum: Unremarkable. Bones/joints: Old healed fracture of the posterior lateral aspect of the right sixth rib. Soft tissues: Soft tissues are unremarkable. IMPRESSION: 1. Cardiomegaly. 2. Patchy airspace disease right mid lower lung zones raising concern for atypical pneumonias. Clinical correlation is advised to 3. Old healed right sixth rib fracture.
[2020-11-12 18:03] LABS: BASOPHILS % (AUTO) 0.8 % (0.0-2.0); EOSINOPHILS % (AUTO) 0.1 % (0.0-3.0); HEMATOCRIT 40.2 % (42.0-52.0); HEMOGLOBIN 14.4 G/DL (14.2-18.0); LYMPHOCYTES % (AUTO) 18.7 % (20.0-45.0); MEAN CORPUSCULAR VOLUME 84 FL (80-99); MONOCYTES % (AUTO) 6.7 % (1.0-10.0); NEUTROPHILS % (AUTO) 73.8 % (45.0-75.0); PLATELET COUNT 175 K/UL (150-450); RED BLOOD COUNT 4.81 M/UL (4.70-6.10); RED CELL DISTRIBUTION WIDTH 14.1 % (11.6-14.8); WHITE BLOOD COUNT 4.6 K/UL (4.8-10.8)
[2020-11-12 18:14] LABS: APPEARANCE,URINE CLEAR; BILIRUBIN, URINE NEGATIVE (NEGATIVE); GLUCOSE, URINE (UA) NEGATIVE (NEGATIVE); KETONES,URINE NEGATIVE (NEGATIVE); LEUKOCYTE ESTERASE ,URINE NEGATIVE (NEGATIVE); NITRITE,URINE NEGATIVE (NEGATIVE); PH,URINE 5 (4.5-8.0); PROTEIN,URINE 3+ (NEGATIVE); UROBILINOGEN,URINE NORMAL MG/DL (0.0-1.0)
[2020-11-12 18:17] LABS: COLOR,URINE YELLOW
[2020-11-12 18:53] VITALS: BP 125/78
--- NOTE | 2020-11-12 18:53 | NUR ---
AMA: Pt left against medical advice. Pt does not want to stay and leave. ERMD notified, explained risk, verbally understood. AAox4, verbally responsive. IV line and ID band removed. Pt left with all the belongings.
[2020-11-13] MEDS ORDERED: LISINOPRIL10 MG ORAL (12:34)
[2020-11-13] MEDS ORDERED: CARVEDILOL3.125 MG ORAL (12:34)
[2020-11-13] MEDS ORDERED: FUROSEMIDE40 MG ORAL (12:38)
== END 2020-11-12 18:53 | disposition left against medical advice (07) ==
LOC: EMR 16:30
DX: R10.9 Unspecified abdominal pain (principal); B86 Scabies; J98.01 Acute bronchospasm; N28.9 Disorder of kidney and ureter, unspecified; E87.1 Hypo-osmolality and hyponatremia; F15.10 Other stimulant abuse, uncomplicated; Z88.0 Allergy status to penicillin; Z53.29 Procedure and treatment not carried out because of patient's decision for other reasons
CPT/HCPCS: 36415; 71045; 74018; 80053; 80307; 81003; 82550; 83690; 84484; 85025; 85610; 85730; 93005; 96361; 96374; 96375; G0480; J2405; J7030; S0028; Z7502; 99284

== ENCOUNTER 2020-11-13 12:26 | Emergency (ER) | payer MEDICAID ==
[~2020-11-13] VITALS: Ht 175.3 cm; Wt 81.6 kg
[~2020-11-13 12:26] MED LIST changes: +ALBUTEROL SULF8.5 G1 INH; +FAMOTIDINE20 MG ORAL; +PERMETHRIN60 GM TOPIC
[2020-11-13 12:34] VITALS: BP 145/87
[2020-11-13] MEDS ORDERED: CARVEDILOL3.125 MG ORAL (12:34)
[2020-11-13] MEDS ORDERED: LISINOPRIL10 MG ORAL (12:34)
[2020-11-13] MEDS ORDERED: FUROSEMIDE40 MG ORAL (12:38)
--- NOTE | 2020-11-13 12:43 | Emergency Room Report ---
History of Present Illness General Chief Complaint: Medication Refill Source: Patient Present Illness HPI Patient is a 60-year-old male past medical history of hypertension who presents to the ER requesting medication refill. Patient is requesting refills for his 2 blood pressure medicines as well as Lasix. On chart review patient is on carvedilol and lisinopril. Patient denies any fever chills. He denies any chest pain or shortness of breath. Allergies: Coded Allergies: PENICILLINS (Verified Allergy, Unknown, 06/30/19) COVID-19 Screening Contact w/high risk pt: No Recent Travel to affected area: No Experienced COVID-19 symptoms?: No COVID-19 Testing performed HEAD STILL OPERATOR: No Patient History Reviewed Nursing Documentation: PMH: Agreed; PSxH: Agreed Nursing Documentation-PMH Hx Hypertension: Yes - DEPRESSION Hx Pacemaker: No Review of Systems All Other Systems: negative except mentioned in HPI Physical Exam Vital Signs Date Time Temp Pulse Resp B/P (MAP) Pulse Ox O2 Delivery O2 Flow Rate FiO2 11/13/20 12:34 98.8 85 18 145/87 (106) 98 Room Air Sp02 EP Interpretation: reviewed, normal General Appearance: no apparent distress, alert, GCS 15, non-toxic, other - Disheveled Head: normocephalic, atraumatic Eyes: bilateral eye normal inspection, bilateral eye PERRL ENT: hearing grossly normal, normal pharynx, no angioedema, normal voice Neck: full range of motion, supple/symm/no masses Respiratory: no respiratory distress, no accessory muscle use Cardiovascular #1: regular rate, rhythm Gastrointestinal: non tender, soft Rectal: deferred Musculoskeletal: normal range of motion Neurologic: railroad wheels 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 I have explained that their evaluation and treatment in the emergency department today is an important step towards them achieving better health but that their evaluation today is not intended to replace further evaluation and treatment by a physician in their local clinic. I have explained that while the current findings suggest no immediate life threatening emergency they will require further evaluation and treatment by a physician of their choice in their area. They understand that it will be necessary for them to review the final reports of their ED visit with their clinic physician. We have reviewed indications for return to the Emergency Department. I have explained that additional time may need to pass and/or additional testing as an outpatient may be necessary before a definitive diagnosis can be made. They tell me they are willing to follow up as instructed within the timeframe I recommend. They appear to understand what we discussed. Additionally they understand that if they are unable to be seen by an outpatient physician they are welcome, and in fact should, return to the Emergency Department for a repeat evaluation. The patient is stable at time of discharge. Last Vital Signs Date Time Temp Pulse Resp B/P (MAP) Pulse Ox O2 Delivery O2 Flow Rate FiO2 11/13/20 12:34 98.8 85 18 145/87 (106) 98 Room Air Disposition: HOME, SELF-CARE Condition: Stable Scripts Furosemide* (LASIX*) 40 Mg Tablet 40 MG ORAL DAILY, #30 TAB Prov: Aparna Flower M.D. 11/13/20 Lisinopril* (LISINOPRIL*) 10 Mg Tablet 10 MG ORAL DAILY, #30 TAB Prov: Aparna Flower M.D. 11/13/20 Carvedilol* (CARVEDILOL*) 3.125 Mg Tablet 3.125 MG ORAL EVERY 12 HOURS for 30 Days, #60 TAB Prov: Aparna Flower M.D. 11/13/20 Referrals: [facility] Patient Instructions: Medicine Refill at the Emergency Department Additional Instructions: The patient was provided with discharge instructions, notified to follow-up with a primary care doctor and or specialist in the next 24-48 hours, and to return to the ED if they have worsening of their symptoms. Please note that this report is being documented using [employer] technology. This can lead to erroneous entry secondary to incorrect interpretation by the dictating instrument. Aparna Flower M.D. Nov 13, 2020 12:43
[2020-11-13] MEDS ORDERED: Lisinopril 10mg tab ORAL ONE (12:45)
[2020-11-13] MEDS ORDERED: Furosemide 40mg tab ORAL ONE (12:45)
== END 2020-11-13 12:58 | disposition home or self-care (01) ==
LOC: EMR 12:57
DX: Z76.0 Encounter for issue of repeat prescription (principal); I10 Essential (primary) hypertension; Z88.0 Allergy status to penicillin
CPT/HCPCS: 99283

== ENCOUNTER 2020-12-10 15:51 | Emergency (ER) | payer MEDICAID ==
[~2020-12-10] VITALS: Ht 182.9 cm; Wt 72.6 kg
[2020-12-10 15:58] VITALS: BP 95/58
--- NOTE | 2020-12-10 15:58 | NUR ---
ED Nurse Note: Pt walked in to ED from home for medication refill. Pt has hx of scabies. AAOx4, no SOB. ERPA at bedside.
--- NOTE | 2020-12-10 16:27 | Emergency Room Report ---
History of Present Illness General Chief Complaint: Skin Rash/Abscess Present Illness HPI 60 YO male presents to the ED c/o unresolved scabies infection/rash of the bilateral lower extremities. Pt. reports he has been dealing with this off and on x several months. Pt. reports being homeless and becoming re-infected frequently at shelters. Pt. reports he previously was on an antibiotic as well. Pt. reports itchy rash to the bilateral LE's .He denies pain, swelling, calf tenderness/foot swelling. He reports some scabbed wounds which occurred from scratching. Pt. denies fevers, chills or swollen tender lymph nodes. Denies lesions/rashes elsewhere on the body. Denies new medications or body washes or creams. Denies swelling of the lips, tongue , throat or airway. Denies wheezing, or shortness of breath. Denies recent travel, recent illness or ill contacts. denies blisters, oral lesions, or sloughing of the skin. Denies bleeding at this time. Denies taking blood thinning medications. He is not sure when his last Tdap was. Hx of psych: dysthymia and depression. Denies IV drug use. (Leatha Patel) Allergies: Coded Allergies: PENICILLINS (Verified Allergy, Unknown, 06/30/19) COVID-19 Screening Contact w/high risk pt: No Recent Travel to affected area: No Experienced COVID-19 symptoms?: No COVID-19 Testing performed STRATEGIC ACCOUNTS MANAGER: No COVID-19 Screening: Negative COVID-19 COVID-19 Testing Source: 10/2020 (Leatha Patel) Patient History Past Medical History: see triage record Past Surgical History: none Pertinent Family History: none Reviewed Nursing Documentation: PMH: Agreed; PSxH: Agreed (Leatha Patel) Nursing Documentation-PMH Hx Hypertension: Yes - DEPRESSION Hx Pacemaker: No (Leatha Patel) Review of Systems All Other Systems: negative except mentioned in HPI (Leatha Patel) Physical Exam Vital Signs Date Time Temp Pulse Resp B/P (MAP) Pulse Ox O2 Delivery O2 Flow Rate FiO2 12/10/20 15:55 98.6 89 19 95/58 (70) 95 Room Air Sp02 EP Interpretation: reviewed, normal General Appearance: no apparent distress, alert, GCS 15, non-toxic Head: normocephalic, atraumatic Eyes: bilateral eye normal inspection, bilateral eye PERRL ENT: hearing grossly normal, normal voice Neck: full range of motion Respiratory: lungs clear, normal breath sounds, no wheezing, speaking full sentences, other - no stridor Cardiovascular #1: regular rate, rhythm, no edema, normal capillary refill Musculoskeletal: normal range of motion, gait/station normal, non-tender Neurologic: alert, motor strength/tone normal, oriented x3, sensory intact, responsive, speech normal Psychiatric: judgement/insight normal Skin: rash - multiple discrete erythematous papules anteriorly with many scabs and evidence of excoriation. most prominently at the ankles and migrates upward. bilateral LE's with mild secondary cellulitis Lymphatic: no adenopathy (Leatha Patel) Medical Decision Making PA Attestation Dr. Smalls Is my supervising Physician whom patient management has been discussed with. (Leatha Patel) Homeless Attestation I, The treating physician Dr. Smalls, have assessed and agree that patient is medically stable for discharge to an outpatient disposition. (Jesus Smalls MD) Diagnostic Impression: Primary Impression: Insect bites Qualified Codes: S80.869A - Insect bite (nonvenomous), unspecified lower leg, initial encounter; W57.XXXA - Bitten or stung by nonvenomous insect and other nonvenomous arthropods, initial encounter Additional Impression: Medication refill ER Course 60 YO male presents to the ED c/o unresolved scabies infection/rash of the bilateral lower extremities. Pt. reports he has been dealing with this off and on x several months. Pt. reports being homeless and becoming re-infected frequently at shelters. Pt. reports he previously was on an antibiotic as well. Pt. reports itchy rash to the bilateral LE's .He denies pain, swelling, calf tenderness/foot swelling. He reports some scabbed wounds which occurred from scratching. Pt. denies fevers, chills or swollen tender lymph nodes. Denies lesions/rashes elsewhere on the body. Denies new medications or body washes or creams. Denies swelling of the lips, tongue , throat or airway. Denies wheezing, or shortness of breath. Denies recent travel, recent illness or ill contacts. denies blisters, oral lesions, or sloughing of the skin. Denies bleeding at this time. Denies taking blood thinning medications. He is not sure when his last Tdap was. Hx of psych: dysthymia and depression. Denies IV drug use. Ddx considered but are not limited to cellulitis, scabies, insect bites, tic bites, spider bites, contact dermatitis, Drug reaction, allergic reaction, fungal infection, lice. Vital signs: are WNL, pt. is afebrile H&PE are most consistent with dermatitis, suspicious for scabies infestation of bilateral LE's with mild secondary cellulitis. Patient is nontoxic in appearance in no acute distress does not demonstrate evidence to suggest acute impending airway compromise or anaphylaxis. ORDERS: none required at this time, the diagnosis is clinical ED INTERVENTIONS: None required at this time. I did offer this patient Benadryl to help minimize/alleviate his itching to resolve his persistent scratching however patient declines at this time and states that he feels he is already taking quite a few medications. - pt. also requested refill of his Lasix and Lisinopril. DISCHARGE: At this time pt. is stable for d/c to home. Will provide printed patient care instructions, and any necessary prescriptions. Care plan and follow up instructions have been discussed with the patient prior to discharge. (Leatha Patel) Last Vital Signs Date Time Temp Pulse Resp B/P (MAP) Pulse Ox O2 Delivery O2 Flow Rate FiO2 12/10/20 15:55 98.6 89 19 95/58 (70) 95 Room Air (Leatha Patel) Disposition: OTH-HOMELESS Condition: Stable Scripts Furosemide* (LASIX*) 40 Mg Tablet 40 MG ORAL DAILY for Diuretic for 30 Days, #30 TAB Prov: Leatha Patel 12/10/20 Lisinopril* (ZESTRIL*) 10 Mg Tablet 10 MG ORAL DAILY for 30 Days, #30 TAB Prov: Leatha Patel 12/10/20 Cephalexin* (KEFLEX*) 500 Mg Capsule 500 MG ORAL EVERY 12 HOURS for 7 Days, #14 CAP 0 Refills Prov: Leatha Patel 12/10/20 Permethrin* (ELIMITE*) 60 Gm Cream..g. 1 APPLIC TOPIC ONCE, #60 GM 0 Refills Apply cream from head to toe; leave on for 8-14 hours before washing off with water; may reapply in 1 week if live mites appear. Prov: Leatha Patel 12/10/20 Referrals: [facility] + [facility] Patient Instructions: Insect Bite, [id number], Scabies, Pediatric Additional Instructions: Take medications as directed. Follow up with a Primary Care Provider in 3-5 days, even if your symptoms have resolved. --Please review list of primary care clinics, if you do not already have a primary care provider Return sooner to ED if new symptoms occur, or current symptoms become worse. - Please note that this Emergency Department Report was dictated using Topguestdirector of sustainability technology software, occasionally this can lead to erroneous entry secondary to interpretation by the dictation equipment. Leatha Patel Dec 10, 2020 16:27 Jesus Smalls MD Dec 11, 2020 02:26
[2020-12-10] MEDS ORDERED: PERMETHRIN60 GM TOPIC (16:32)
[2020-12-10] MEDS ORDERED: CEPHALEXIN500 MG ORAL (16:32)
[2020-12-10] MEDS: Tetanus/Diptheria/Pertussis IM ONE (16:44)
--- NOTE | 2020-12-10 16:55 | NUR ---
ED Nurse Note: Pt cleared by ERPA for discharge. DC instructions/prescription was given and explained to pt and verbalized understanding of teachings. All medical deviecs such as ID band removed. Pt is AAO x4, ambulatory and left with all personal belongings.
[2020-12-10] MEDS ORDERED: FUROSEMIDE40 MG ORAL (17:00)
[2020-12-10] MEDS ORDERED: ZESTRIL10 MG ORAL (17:00)
== END 2020-12-10 16:55 | disposition home or self-care (01) ==
LOC: EMR 16:25
DX: S80.869A Insect bite (nonvenomous), unspecified lower leg, initial encounter (principal); I10 Essential (primary) hypertension; W57.XXXA Bitten or stung by nonvenomous insect and other nonvenomous arthropods, initial encounter; Z76.0 Encounter for issue of repeat prescription; Z59.0 Homelessness; Z88.0 Allergy status to penicillin
CPT/HCPCS: 90471; 90715; Z7502; 99283

== ENCOUNTER 2021-01-19 17:58 | Emergency (ER) | payer MEDICAID ==
[~2021-01-19] VITALS: Ht 182.9 cm; Wt 72.6 kg
[~2021-01-19 17:58] MED LIST changes: +ZESTRIL10 MG ORAL
[2021-01-19] MEDS ORDERED: Lisinopril 10mg tab ORAL ONE (18:30)
--- NOTE | 2021-01-19 18:40 | Emergency Room Report ---
History of Present Illness General Chief Complaint: To Be Triaged Present Illness HPI 60-year-old male presents to the emergency department requesting medication refill for his lisinopril, carvedilol and Lasix. Patient reports it is very critical that he received some lisinopril as he has been out of that medication for over 4 days. Patient denies chest pain, palpitations, shortness of breath, headache, dizziness, visual changes or floaters. Patient reports he does not have a PCP. Patient reports having some wounds on his legs however he will have them "checked out another day ". Patient denies any other symptoms at this time. Allergies: Coded Allergies: PENICILLINS (Verified Allergy, Unknown, 01/19/21) COVID-19 Screening Contact w/high risk pt: No Recent Travel to affected area: No Experienced COVID-19 symptoms?: No Patient History Past Medical History: see triage record Past Surgical History: none Pertinent Family History: none Reviewed Nursing Documentation: PMH: Agreed; PSxH: Agreed Nursing Documentation-PMH Hx Hypertension: Yes - DEPRESSION Hx Pacemaker: No Review of Systems All Other Systems: negative except mentioned in HPI Physical Exam Sp02 EP Interpretation: reviewed, normal General Appearance: no apparent distress, alert, GCS 15, non-toxic Head: normocephalic, atraumatic Eyes: bilateral eye normal inspection, bilateral eye PERRL ENT: hearing grossly normal, normal voice Neck: full range of motion Respiratory: lungs clear, normal breath sounds, speaking full sentences Cardiovascular #1: regular rate, rhythm Musculoskeletal: normal range of motion, gait/station normal, non-tender Neurologic: alert, motor strength/tone normal, oriented x3, sensory intact, responsive, speech normal, normal gait Psychiatric: judgement/insight normal, memory normal, mood/affect normal, no suicidal/homicidal ideation, no delusions Medical Decision Making PA Attestation Dr. Belle is my supervising Physician whom patient management has been discussed with. Diagnostic Impression: Primary Impression: Encounter for medication refill Additional Impression: Hypertension Qualified Codes: I10 - Essential (primary) hypertension ER Course 60-year-old male presents to the emergency department requesting medication refill for his lisinopril, carvedilol and Lasix. Patient reports it is very critical that he received some lisinopril as he has been out of that medication for over 4 days. Patient denies chest pain, palpitations, shortness of breath, headache, dizziness, visual changes or floaters. Patient reports he does not have a PCP. Patient reports having some wounds on his legs however he will have them "checked out another day ". Patient denies any other symptoms at this time. He also requests xanax for anxiety. Ddx considered but are not limited to: HTN, hypertensive urgency/emergency, drug seeking, OD, arrhythmia just to name a few Vital signs: are WNL, pt. is afebrile H&PE are most consistent with need for medication refill without evidence of acute emergent condition. ORDERS: none required at this time, the diagnosis is clinical ED INTERVENTIONS: --Lisinopril 10 mg p.o. DISCHARGE: At this time pt. is stable for d/c to home. Will provide printed patient care instructions, and any necessary prescriptions. Care plan and follow up instructions have been discussed with the patient prior to discharge. Disposition: HOME, SELF-CARE Condition: Stable Scripts Carvedilol* (CARVEDILOL*) 3.125 Mg Tablet 3.125 MG ORAL EVERY 12 HOURS for 30 Days, #60 TAB Prov: Leatha Patel 01/19/21 Furosemide* (LASIX*) 40 Mg Tablet 40 MG ORAL DAILY for Diuretic, #30 TAB Prov: Leatha Patel 01/19/21 Lisinopril* (ZESTRIL*) 10 Mg Tablet 10 MG ORAL DAILY, #30 TAB Prov: Leatha Patel 01/19/21 Referrals: NOT CHOSEN IPA/,REFERRING (PCP) [facility]. [facility] + [facility] Patient Instructions: Medicine Refill at the Emergency Department Additional Instructions: Take medications as directed. Follow up with a Primary Care Provider in 3-5 days, even if your symptoms have resolved. --Please review list of primary care clinics, if you do not already have a primary care provider Return sooner to ED if new symptoms occur, or current symptoms become worse. - Please note that this Emergency Department Report was dictated using [employer]aur[employer] and in home delivery specialist technology software, occasionally this can lead to erroneous entry secondary to interpretation by the dictation equipment. Leatha Patel Jan 19, 2021 18:40
[2021-01-19] MEDS ORDERED: ZESTRIL10 M1 ORAL (18:42)
[2021-01-19] MEDS ORDERED: CARVEDILOL3.125 MG ORAL (18:42)
[2021-01-19] MEDS ORDERED: FUROSEMIDE40 MG ORAL (18:42)
--- NOTE | 2021-01-19 19:03 | NUR ---
pt requesting refill of "pink pill". pt unable to state name of medication, states it is for htn. pt states allergy to pcn. pt states pmh htn. pt A&Ox4.
[2021-01-19 19:12] VITALS: BP 125/83
--- NOTE | 2021-01-19 19:18 | NUR ---
Homeless Discharge: Patient is being discharged from medical care. Awake, alert and oriented x3. After care instructions, including referral to community resources were given. Patient verbalized understanding of After care instructions; at this time patient does not request medications, equipment or placement. Patient signed patient consent in the medical record for patient destination upon discharge. All medical devices such as IV and ID band were removed. Patient ambulated out with all personal belongings with steady gait.
== END 2021-01-19 19:18 | disposition home or self-care (01) ==
LOC: EMR 18:34
DX: Z76.0 Encounter for issue of repeat prescription (principal); I10 Essential (primary) hypertension; Z88.0 Allergy status to penicillin; Z79.899 Other long term (current) drug therapy
CPT/HCPCS: 99282